=== PATIENT | male | born 1940 | race African-American/Black ===

== ENCOUNTER 2018-09-05 12:06 | Inpatient (IN) | payer OTHER, MEDICAID ==
[~2018-09-05] VITALS: Ht 165.1 cm; Wt 76.2 kg
[~2018-09-05 12:06] MED LIST: ACET325T53 GT; BIMA2.5D5 OP; DEPL250/5 GT; FURO-150 GT; NOR10 GT; NUTR250L50 GT; OLAN2.5T3 GT; OMEP40CA GT; SIMV20TA2 GT
[2018-09-05 12:17] VITALS: BP_SYST 132
[2018-09-05] MEDS ORDERED: NACL 0.9% 1,000 ML IV ONE (12:26)
[2018-09-05] MEDS ORDERED: MORPHINE 4 MG/ML INJ. SYRINGE IVP ONE (12:30)
[2018-09-05] MEDS ORDERED: ONDANSETRON HCL 4 MG/2 ML VIAL IVP ONE (12:30)
[2018-09-05 12:54] LABS: HEMATOCRIT 46.2 % (36-54); WHITE BLOOD COUNT (AUTO) 16.7 K/uL (4.8-10.8)
[2018-09-05 13:06] LABS: BASOPHILS # (AUTO) 0.3 K/uL (0.0-0.2); BASOPHILS % (AUTO) 1.9 % (0.0-2.0); HEMOGLOBIN 15.5 g/dL (14.0-18.0); LYMPHOCYTES # (AUTO) 0.9 K/uL (1.0-5.5); LYMPHOCYTES % (AUTO) 5.6 % (20.5-51.5); MEAN CORPUSCULAR HEMOGLOBIN 31 pg (27-31); MEAN CORPUSCULAR HGB CONC 34 % (32-36); MEAN CORPUSCULAR VOLUME 91 fL (79.0-98.0); MONOCYTES # (AUTO) 1.8 K/uL (0.0-1.0); MONOCYTES % (AUTO) 10.6 % (1.7-9.3); NEUTROPHILS # (AUTO) 13.7 K/uL (1.8-7.7); NEUTROPHILS % (AUTO) 81.9 % (40.0-70.0); PLATELET COUNT (AUTO) 160 K/uL (130-430); RED BLOOD CELL COUNT(AUTO) 5.07 MIL/uL (4.2-6.2); RED CELL DISTRIBUTION WIDTH 14.9 % (9.0-15.0)
[2018-09-05 13:11] LABS: ANION GAP 11 (5-15); CALCIUM 9.6 mg/dL (8.4-11.0); CHLORIDE 101 mmol/L (98-107); CREATININE 1.75 mg/dL (0.55-1.30); GLUCOSE 145 mg/dL (70-99); POTASSIUM 4.4 mmol/L (3.5-5.1); SODIUM SERUM 140 mmol/L (136-145); UREA NITROGEN, BLOOD 29 mg/dL (8-21)
[2018-09-05 13:17] LABS: ALANINE AMINOTRANSFERASE 28 U/L (12-78); ALBUMIN 3.4 g/dL (3.4-4.8); AMYLASE 52 U/L (0-100); ASPARTATE AMINOTRANSFERASE 30 U/L (10-37); LIPASE 90 U/L (73-393); TOTAL BILIRUBIN 1.2 mg/dL (0.0-1.0)
[2018-09-05 13:21] LABS: INR 1.1 (0.80-1.20)
[2018-09-05] MEDS ORDERED: metroNIDAZOLE 500 mg/NS 100 ML IV ONE (13:30)
[2018-09-05 13:42] LABS: CLARITY/URINE CLOUDY (CLEAR); COLOR,URINE YELLOW (YELLOW); GLUCOSE,URINE NEGATIVE (NEGATIVE); PROTEIN URINE 1+ (NEGATIVE)
[2018-09-05 13:43] LABS: BILIRUBIN,URINE NEGATIVE (NEGATIVE); BLOOD, URINE 1+ (NEGATIVE); KETONES,URINE NEGATIVE (NEGATIVE); LEUKOCYTE ESTERASE ,URINE 3+ (NEGATIVE); NITRITE, URINE NEGATIVE (NEGATIVE); UROBILINOGEN,URINE 0.2 (0.2-1.0)
[2018-09-05 13:44] LABS: BACTERIA,URINE MODERATE /HPF (None Seen); MUCUS,URINE 1+ /LPF (None Seen); WBC,URINE >100 /HPF (0-3)
[2018-09-05] MEDS ORDERED: LIP40 PO (15:08)
[2018-09-05] MEDS ORDERED: HYT1 GT (15:08)
[2018-09-05] MEDS ORDERED: LACT1CAP61 PO (15:08)
[2018-09-05] MEDS ORDERED: METO25TA6 PO (15:08)
[2018-09-05] MEDS ORDERED: SSREG SUBCUT (15:08)
[2018-09-05] MEDS ORDERED: INSU100V11 SQ (15:08)
[2018-09-05] MEDS ORDERED: LANS15CA14 GT (15:08)
[2018-09-05] MEDS ORDERED: IPRA3AMP9 INH (15:08)
[2018-09-05] MEDS ORDERED: ASA81 PO (15:08)
[2018-09-05] MEDS ORDERED: FAMO20TA8 GT (15:08)
[2018-09-05 15:42] VITALS: BP_SYST 131
[2018-09-05] MEDS: KCL 20 mEq in D5/0.45NS 1000mL 1,000 ML IV SCH (17:20)
[2018-09-05] MEDS ORDERED: ACETAMINOPHEN 325 MG TABLET GT PRN (18:45)
[2018-09-05 19:13] VITALS: BP_SYST 135
[2018-09-05] MEDS: LevALBUTEROL HCL 1.25 MG/0.5 ML *CONC.* VIAL.NEB (XOPENEX CONC.) INH SCH (19:36)
[2018-09-05 19:43] VITALS: BP_SYST 135
[2018-09-05] MEDS ORDERED: NA PHOS,M-B/NA PHOS,DI-BA 118 ML (FLEET ENEMA) RC ONE (20:00)
[2018-09-05] MEDS ORDERED: VANCOMYCIN HCL 1,500 MG in NS 250 ML IV ONE (21:00)
[2018-09-05] MEDS: PANTOPRAZOLE SODIUM 40 MG/VIAL (PROTONIX) IVP SCH (21:47)
[2018-09-05] MEDS: TERAZOSIN HCL 1 MG CAPSULE (HYTRIN) GT SCH (21:47)
[2018-09-05] MEDS: METOPROLOL TARTRATE 25 MG TABLET GT SCH (21:48)
[2018-09-05] MEDS: LACTULOSE 20 GM/30 ML UDC GT SCH (21:48)
[2018-09-05] MEDS: ENOXAPARIN SODIUM 30 MG/0.3 ML SYRINGE SUBCUT SCH (21:49)
[2018-09-05] MEDS ORDERED: VANCOMYCIN HCL 1000 MG/VIAL IV ONE (23:11)
[2018-09-05] MEDS ORDERED: CEFEPIME 1 GM/VIAL (MAXIPIME) ONE (23:11)
[2018-09-05] MEDS ORDERED: VANCOMYCIN HCL 500 MG/VIAL IV ONE (23:11)
[2018-09-06] MEDS: CEFEPIME 1 GM in D5W 50 ML IV SCH ×2 (00:08→20:02)
[2018-09-06 00:42] VITALS: BP_SYST 123
[2018-09-06] MEDS: LevALBUTEROL HCL 1.25 MG/0.5 ML *CONC.* VIAL.NEB (XOPENEX CONC.) INH SCH ×4 (01:51→19:37)
[2018-09-06] MEDS: KCL 20 mEq in D5/0.45NS 1000mL 1,000 ML IV SCH ×3 (04:07→21:15)
[2018-09-06] MEDS: ONDANSETRON HCL 4 MG/2 ML VIAL IVP PRN ×3 (04:10→20:09)
[2018-09-06 06:27] LABS: BASOPHILS % (AUTO) 0.2 % (0.0-2.0); HEMATOCRIT 43.8 % (36-54); HEMOGLOBIN 14.4 g/dL (14.0-18.0); LYMPHOCYTES # (AUTO) 1.1 K/uL (1.0-5.5); LYMPHOCYTES % (AUTO) 8.6 % (20.5-51.5); MEAN CORPUSCULAR HEMOGLOBIN 31 pg (27-31); MEAN CORPUSCULAR HGB CONC 33 % (32-36); MONOCYTES # (AUTO) 1.3 K/uL (0.0-1.0); MONOCYTES % (AUTO) 10.4 % (1.7-9.3); NEUTROPHILS # (AUTO) 10.5 K/uL (1.8-7.7); NEUTROPHILS % (AUTO) 80.8 % (40.0-70.0); PLATELET COUNT (AUTO) 158 K/uL (130-430); RED BLOOD CELL COUNT(AUTO) 4.73 MIL/uL (4.2-6.2); RED CELL DISTRIBUTION WIDTH 14.9 % (9.0-15.0); WHITE BLOOD COUNT (AUTO) 12.9 K/uL (4.8-10.8)
[2018-09-06] MEDS: INSULIN REGULAR, HUMAN 100 UNITS/ML, 10 ML VIAL (novoLIN R) SUBCUT PRN ×2 (07:12→11:40)
[2018-09-06 07:24] LABS: ANION GAP 11 (5-15); CALCIUM 8.8 mg/dL (8.4-11.0); CHLORIDE 104 mmol/L (98-107); CREATININE 1.55 mg/dL (0.55-1.30); GLUCOSE 174 mg/dL (70-99); POTASSIUM 3.9 mmol/L (3.5-5.1); SODIUM SERUM 140 mmol/L (136-145); UREA NITROGEN, BLOOD 25 mg/dL (8-21)
[2018-09-06 07:34] LABS: MEAN CORPUSCULAR VOLUME 93 fL (79.0-98.0)
[2018-09-06 08:00] VITALS: BP_SYST 136
[2018-09-06] MEDS: ASPIRIN 81 MG TAB.CHEW GT SCH (09:30)
[2018-09-06] MEDS: LACTULOSE 20 GM/30 ML UDC GT SCH ×2 (09:30→20:01)
[2018-09-06] MEDS: PANTOPRAZOLE SODIUM 40 MG/VIAL (PROTONIX) IVP SCH ×2 (09:30→20:01)
[2018-09-06] MEDS: ATORVASTATIN 20 MG TABLET GT SCH (09:30)
[2018-09-06] MEDS: amLODIPine BESYLATE 10 MG TABLET GT SCH (09:31)
[2018-09-06] MEDS: METOPROLOL TARTRATE 25 MG TABLET GT SCH ×2 (09:32→20:06)
[2018-09-06 11:18] VITALS: BP_SYST 123
[2018-09-06] MEDS: metroNIDAZOLE 500 mg/NS 100 ML IV SCH ×2 (14:30→21:47)
[2018-09-06 16:29] VITALS: BP_SYST 122
[2018-09-06 20:00] VITALS: BP_SYST 160
[2018-09-06] MEDS: ENOXAPARIN SODIUM 30 MG/0.3 ML SYRINGE SUBCUT SCH (20:02)
[2018-09-06] MEDS: TERAZOSIN HCL 1 MG CAPSULE (HYTRIN) GT SCH (20:06)
[2018-09-06] MEDS ORDERED: VANCOMYCIN HCL 1000 MG/VIAL IV ONE (20:10)
[2018-09-06] MEDS: LATANOPROST 2.5 ML DROPS (XALATAN) OP SCH ×2 (20:11→21:00)
[2018-09-06] MEDS ORDERED: VANCOMYCIN HCL 1 GM/NS PREMIX 250 ML IV SCH (21:00)
[2018-09-07] MEDS: LevALBUTEROL HCL 1.25 MG/0.5 ML *CONC.* VIAL.NEB (XOPENEX CONC.) INH SCH ×4 (01:09→19:45)
[2018-09-07 01:24] VITALS: BP_SYST 135
[2018-09-07] MEDS: metroNIDAZOLE 500 mg/NS 100 ML IV SCH ×3 (05:06→22:06)
[2018-09-07] MEDS: KCL 20 mEq in D5/0.45NS 1000mL 1,000 ML IV SCH ×3 (05:25→20:51)
[2018-09-07] MEDS: ONDANSETRON HCL 4 MG/2 ML VIAL IVP PRN ×2 (05:54→17:09)
[2018-09-07 06:54] LABS: ANION GAP 11 (5-15); CALCIUM 8.5 mg/dL (8.4-11.0); CHLORIDE 106 mmol/L (98-107); CREATININE 1.69 mg/dL (0.55-1.30); GLUCOSE 157 mg/dL (70-99); POTASSIUM 4.2 mmol/L (3.5-5.1); SODIUM SERUM 141 mmol/L (136-145); UREA NITROGEN, BLOOD 23 mg/dL (8-21)
[2018-09-07 07:03] LABS: ALANINE AMINOTRANSFERASE 28 U/L (12-78); ALBUMIN 2.6 g/dL (3.4-4.8); ASPARTATE AMINOTRANSFERASE 51 U/L (10-37); TOTAL BILIRUBIN 0.7 mg/dL (0.0-1.0)
[2018-09-07] MEDS: LACTULOSE 20 GM/30 ML UDC GT SCH ×2 (08:53→21:02)
[2018-09-07 10:10] VITALS: BP_SYST 104
[2018-09-07] MEDS: PANTOPRAZOLE SODIUM 40 MG/VIAL (PROTONIX) IVP SCH ×2 (10:18→20:57)
[2018-09-07] MEDS: amLODIPine BESYLATE 10 MG TABLET GT SCH (10:19)
[2018-09-07] MEDS: ATORVASTATIN 20 MG TABLET GT SCH (10:19)
[2018-09-07] MEDS: METOPROLOL TARTRATE 25 MG TABLET GT SCH ×2 (10:19→21:02)
[2018-09-07] MEDS: ASPIRIN 81 MG TAB.CHEW GT SCH (10:19)
[2018-09-07 12:31] VITALS: BP_SYST 125
[2018-09-07] MEDS ORDERED: MINERAL OIL 133 ML ENEMA RC ONE (16:15)
[2018-09-07 16:40] VITALS: BP_SYST 122
[2018-09-07 20:00] VITALS: BP_SYST 133
[2018-09-07] MEDS: CEFEPIME 1 GM in D5W 50 ML IV SCH (20:52)
[2018-09-07] MEDS: TERAZOSIN HCL 1 MG CAPSULE (HYTRIN) GT SCH (21:01)
[2018-09-07] MEDS: ENOXAPARIN SODIUM 30 MG/0.3 ML SYRINGE SUBCUT SCH (21:05)
[2018-09-07] MEDS: LATANOPROST 2.5 ML DROPS (XALATAN) OP SCH (21:06)
[2018-09-08] VITALS (7 sets, daily range): BP systolic 117–186
[2018-09-08] MEDS: LevALBUTEROL HCL 1.25 MG/0.5 ML *CONC.* VIAL.NEB (XOPENEX CONC.) INH SCH ×4 (00:55→19:44)
[2018-09-08] MEDS: metroNIDAZOLE 500 mg/NS 100 ML IV SCH ×3 (05:02→20:42)
[2018-09-08 08:07] LABS: PROTHROMBIN TIME 10.7 SECS (9.5-12.5)
[2018-09-08 08:33] LABS: BASOPHILS % (AUTO) 0.4 % (0.0-2.0); HEMOGLOBIN 14.4 g/dL (14.0-18.0); LYMPHOCYTES # (AUTO) 2.2 K/uL (1.0-5.5); LYMPHOCYTES % (AUTO) 19.9 % (20.5-51.5); MEAN CORPUSCULAR HEMOGLOBIN 30 pg (27-31); MEAN CORPUSCULAR HGB CONC 34 % (32-36); MEAN CORPUSCULAR VOLUME 90 fL (79.0-98.0); MONOCYTES # (AUTO) 1.4 K/uL (0.0-1.0); MONOCYTES % (AUTO) 12.1 % (1.7-9.3); NEUTROPHILS # (AUTO) 7.6 K/uL (1.8-7.7); NEUTROPHILS % (AUTO) 67.6 % (40.0-70.0); PLATELET COUNT (AUTO) 141 K/uL (130-430); RED BLOOD CELL COUNT(AUTO) 4.77 MIL/uL (4.2-6.2); RED CELL DISTRIBUTION WIDTH 14.9 % (9.0-15.0); WHITE BLOOD COUNT (AUTO) 11.2 K/uL (4.8-10.8)
[2018-09-08] MEDS: LACTULOSE 20 GM/30 ML UDC GT SCH ×2 (08:47→20:40)
[2018-09-08] MEDS: PANTOPRAZOLE SODIUM 40 MG/VIAL (PROTONIX) IVP SCH ×2 (08:47→20:40)
[2018-09-08] MEDS: ATORVASTATIN 20 MG TABLET GT SCH (08:48)
[2018-09-08] MEDS: METOPROLOL TARTRATE 25 MG TABLET GT SCH ×2 (08:48→20:41)
[2018-09-08] MEDS: amLODIPine BESYLATE 10 MG TABLET GT SCH (08:49)
[2018-09-08] MEDS: ASPIRIN 81 MG TAB.CHEW GT SCH (08:49)
[2018-09-08 09:29] LABS: CHLORIDE 110 mmol/L (98-107); POTASSIUM 4.2 mmol/L (3.5-5.1); SODIUM SERUM 142 mmol/L (136-145)
[2018-09-08 09:30] LABS: ANION GAP 10 (5-15); CALCIUM 8.6 mg/dL (8.4-11.0); GLUCOSE 169 mg/dL (70-99); UREA NITROGEN, BLOOD 36 mg/dL (8-21)
[2018-09-08] MEDS: KCL 20 mEq in D5/0.45NS 1000mL 1,000 ML IV SCH ×2 (09:42→23:10)
[2018-09-08] MEDS ORDERED: MINERAL OIL 133 ML ENEMA RC PRN (18:15)
[2018-09-08] MEDS ORDERED: GENTAMICIN 120 MG/ ISO-OSM 100 ML PREMIX IV SCH (19:00)
[2018-09-08] MEDS: TERAZOSIN HCL 1 MG CAPSULE (HYTRIN) GT SCH (20:41)
[2018-09-08] MEDS: CEFEPIME 1 GM in D5W 50 ML IV SCH (20:42)
[2018-09-08] MEDS: LATANOPROST 2.5 ML DROPS (XALATAN) OP SCH (20:42)
[2018-09-08] MEDS: ENOXAPARIN SODIUM 30 MG/0.3 ML SYRINGE SUBCUT SCH (20:44)
[2018-09-08] MEDS ORDERED: COMMUNICATION ORDER XX ONE (23:30)
[2018-09-08] MEDS: NA PHOS,M-B/NA PHOS,DI-BA 118 ML (FLEET ENEMA) RC ONE (23:36)
[2018-09-08] MEDS: METOCLOPRAMIDE HCL 10 MG/2 ML VIAL IVP SCH (23:39)
[2018-09-09] MEDS ORDERED: MINERAL OIL 30 ML UDC PO ONE
[2018-09-09] MEDS ORDERED: POLYETHYLENE GLYCOL 3350, 17 GM/ POWD.PACK PO ONE
[2018-09-09] MEDS: NA PHOS,M-B/NA PHOS,DI-BA 118 ML (FLEET ENEMA) RC ONE (01:36)
[2018-09-09] MEDS: LevALBUTEROL HCL 1.25 MG/0.5 ML *CONC.* VIAL.NEB (XOPENEX CONC.) INH SCH ×4 (01:43→20:56)
[2018-09-09] MEDS: metroNIDAZOLE 500 mg/NS 100 ML IV SCH ×2 (05:34→14:01)
[2018-09-09] MEDS: METOCLOPRAMIDE HCL 10 MG/2 ML VIAL IVP SCH ×3 (05:34→17:50)
[2018-09-09] MEDS: INSULIN REGULAR, HUMAN 100 UNITS/ML, 10 ML VIAL (novoLIN R) SUBCUT PRN (05:52)
[2018-09-09] MEDS: KCL 20 mEq in D5/0.45NS 1000mL 1,000 ML IV SCH (05:52)
[2018-09-09 07:30] LABS: ANION GAP 12 (5-15); CALCIUM 8.3 mg/dL (8.4-11.0); CHLORIDE 110 mmol/L (98-107); CREATININE 3.14 mg/dL (0.55-1.30); GLUCOSE 158 mg/dL (70-99); PHOSPHORUS 2.8 mg/dL (2.7-4.5); POTASSIUM 4.3 mmol/L (3.5-5.1); SODIUM SERUM 141 mmol/L (136-145); UREA NITROGEN, BLOOD 43 mg/dL (8-21)
[2018-09-09 08:01] LABS: BASOPHILS % (AUTO) 0.2 % (0.0-2.0); EOSINOPHILS # (AUTO) 0.1 K/uL (0.0-0.4); EOSINOPHILS % (AUTO) 0.6 % (0.0-4.0); HEMATOCRIT 40.1 % (36-54); HEMOGLOBIN 14.2 g/dL (14.0-18.0); LYMPHOCYTES # (AUTO) 2.4 K/uL (1.0-5.5); MEAN CORPUSCULAR HEMOGLOBIN 32 pg (27-31); MEAN CORPUSCULAR HGB CONC 35 % (32-36); MEAN CORPUSCULAR VOLUME 89 fL (79.0-98.0); MONOCYTES # (AUTO) 1.3 K/uL (0.0-1.0); MONOCYTES % (AUTO) 14.4 % (1.7-9.3); NEUTROPHILS # (AUTO) 5.4 K/uL (1.8-7.7); NEUTROPHILS % (AUTO) 58.8 % (40.0-70.0); RED BLOOD CELL COUNT(AUTO) 4.48 MIL/uL (4.2-6.2); RED CELL DISTRIBUTION WIDTH 15.2 % (9.0-15.0); WHITE BLOOD COUNT (AUTO) 9.2 K/uL (4.8-10.8)
[2018-09-09 09:18] VITALS: BP_SYST 132
[2018-09-09] MEDS: POLYETHYLENE GLYCOL 3350, 17 GM/ POWD.PACK PO SCH (09:20)
[2018-09-09] MEDS: PANTOPRAZOLE SODIUM 40 MG/VIAL (PROTONIX) IVP SCH ×2 (09:20→21:41)
[2018-09-09] MEDS: MINERAL OIL 30 ML UDC PO SCH ×2 (09:20→21:41)
[2018-09-09] MEDS: LACTULOSE 20 GM/30 ML UDC GT SCH ×2 (09:20→21:40)
[2018-09-09] MEDS: METOPROLOL TARTRATE 25 MG TABLET GT SCH ×2 (09:21→21:43)
[2018-09-09] MEDS: amLODIPine BESYLATE 10 MG TABLET GT SCH (09:22)
[2018-09-09] MEDS: ATORVASTATIN 20 MG TABLET GT SCH (09:22)
[2018-09-09] MEDS: ASPIRIN 81 MG TAB.CHEW GT SCH (09:22)
[2018-09-09 11:24] LABS: PLATELET COUNT (AUTO) 205 K/uL (130-430)
[2018-09-09 12:02] VITALS: BP_SYST 153
[2018-09-09] MEDS: D5/0.45 NS 1,000 ML IV SCH (14:00)
[2018-09-09 16:02] VITALS: BP_SYST 161
[2018-09-09] MEDS: CEFTAZIDIME/AVIBACTAM 0.94 GM in NS 100 ML IV SCH (17:50)
[2018-09-09] MEDS: ENOXAPARIN SODIUM 30 MG/0.3 ML SYRINGE SUBCUT SCH (21:40)
[2018-09-09] MEDS: LATANOPROST 2.5 ML DROPS (XALATAN) OP SCH (21:41)
[2018-09-09] MEDS: TERAZOSIN HCL 1 MG CAPSULE (HYTRIN) GT SCH (21:43)
[2018-09-09 23:21] VITALS: BP_SYST 151
[2018-09-10] MEDS: METOCLOPRAMIDE HCL 10 MG/2 ML VIAL IVP SCH ×5 (00:18→23:10)
[2018-09-10] MEDS: D5/0.45 NS 1,000 ML IV SCH ×4 (00:19→23:10)
[2018-09-10] MEDS: LevALBUTEROL HCL 1.25 MG/0.5 ML *CONC.* VIAL.NEB (XOPENEX CONC.) INH SCH ×4 (00:32→20:32)
[2018-09-10 07:03] LABS: BASOPHILS % (AUTO) 0.1 % (0.0-2.0); EOSINOPHILS # (AUTO) 0.1 K/uL (0.0-0.4); EOSINOPHILS % (AUTO) 0.6 % (0.0-4.0); HEMATOCRIT 35.8 % (36-54); HEMOGLOBIN 12.1 g/dL (14.0-18.0); LYMPHOCYTES # (AUTO) 2.6 K/uL (1.0-5.5); MEAN CORPUSCULAR HEMOGLOBIN 31 pg (27-31); MEAN CORPUSCULAR HGB CONC 34 % (32-36); MEAN CORPUSCULAR VOLUME 91 fL (79.0-98.0); MONOCYTES # (AUTO) 1.3 K/uL (0.0-1.0); NEUTROPHILS # (AUTO) 7.7 K/uL (1.8-7.7); NEUTROPHILS % (AUTO) 66.3 % (40.0-70.0); PLATELET COUNT (AUTO) 113 K/uL (130-430); RED BLOOD CELL COUNT(AUTO) 3.93 MIL/uL (4.2-6.2); WHITE BLOOD COUNT (AUTO) 11.7 K/uL (4.8-10.8)
[2018-09-10 07:20] LABS: ALANINE AMINOTRANSFERASE 15 U/L (12-78); ANION GAP 10 (5-15); ASPARTATE AMINOTRANSFERASE 24 U/L (10-37); CALCIUM 7.7 mg/dL (8.4-11.0); CHLORIDE 112 mmol/L (98-107); CREATININE 2.73 mg/dL (0.55-1.30); GLUCOSE 137 mg/dL (70-99); POTASSIUM 3.6 mmol/L (3.5-5.1); SODIUM SERUM 141 mmol/L (136-145); TOTAL BILIRUBIN 0.6 mg/dL (0.0-1.0); UREA NITROGEN, BLOOD 38 mg/dL (8-21)
[2018-09-10 07:59] VITALS: BP_SYST 118
[2018-09-10] MEDS: LACTULOSE 20 GM/30 ML UDC GT SCH ×2 (08:52→20:22)
[2018-09-10] MEDS: MINERAL OIL 30 ML UDC PO SCH ×2 (08:53→20:22)
[2018-09-10] MEDS: POLYETHYLENE GLYCOL 3350, 17 GM/ POWD.PACK PO SCH (08:53)
[2018-09-10] MEDS ORDERED: ATORVASTATIN 20 MG TABLET GT SCH (09:00)
[2018-09-10] MEDS: PANTOPRAZOLE SODIUM 40 MG/VIAL (PROTONIX) IVP SCH ×2 (09:16→20:23)
[2018-09-10] MEDS: amLODIPine BESYLATE 10 MG TABLET GT SCH (09:17)
[2018-09-10] MEDS: ASPIRIN 81 MG TAB.CHEW GT SCH (09:17)
[2018-09-10] MEDS: METOPROLOL TARTRATE 25 MG TABLET GT SCH ×2 (09:18→20:25)
[2018-09-10 12:02] VITALS: BP_SYST 108
[2018-09-10] MEDS: CEFTAZIDIME/AVIBACTAM 0.94 GM in NS 100 ML IV SCH (14:14)
[2018-09-10] MEDS ORDERED: *TPN PER PHARMACY XX PRN (14:45)
[2018-09-10 16:02] VITALS: BP_SYST 111
[2018-09-10] MEDS: TERAZOSIN HCL 1 MG CAPSULE (HYTRIN) GT SCH (20:24)
[2018-09-10] MEDS: LATANOPROST 2.5 ML DROPS (XALATAN) OP SCH (20:26)
[2018-09-10] MEDS: ENOXAPARIN SODIUM 30 MG/0.3 ML SYRINGE SUBCUT SCH (20:28)
[2018-09-10 22:56] VITALS: BP_SYST 104
[2018-09-11] MEDS: LevALBUTEROL HCL 1.25 MG/0.5 ML *CONC.* VIAL.NEB (XOPENEX CONC.) INH SCH ×4 (01:43→21:05)
[2018-09-11] MEDS: METOCLOPRAMIDE HCL 10 MG/2 ML VIAL IVP SCH ×3 (05:20→17:38)
[2018-09-11] MEDS: D5/0.45 NS 1,000 ML IV SCH ×3 (06:09→21:55)
[2018-09-11 07:39] LABS: BASOPHILS # (AUTO) 0.1 K/uL (0.0-0.2); BASOPHILS % (AUTO) 0.8 % (0.0-2.0); EOSINOPHILS # (AUTO) 0.3 K/uL (0.0-0.4); EOSINOPHILS % (AUTO) 3.1 % (0.0-4.0); HEMATOCRIT 38.1 % (36-54); HEMOGLOBIN 11.9 g/dL (14.0-18.0); LYMPHOCYTES % (AUTO) 18.8 % (20.5-51.5); MEAN CORPUSCULAR HEMOGLOBIN 29 pg (27-31); MEAN CORPUSCULAR HGB CONC 31 % (32-36); MONOCYTES # (AUTO) 1.1 K/uL (0.0-1.0); MONOCYTES % (AUTO) 10.2 % (1.7-9.3); NEUTROPHILS # (AUTO) 7.1 K/uL (1.8-7.7); NEUTROPHILS % (AUTO) 67.1 % (40.0-70.0); PLATELET COUNT (AUTO) 130 K/uL (130-430); RED BLOOD CELL COUNT(AUTO) 4.11 MIL/uL (4.2-6.2); WHITE BLOOD COUNT (AUTO) 10.6 K/uL (4.8-10.8)
[2018-09-11 07:45] LABS: MEAN CORPUSCULAR VOLUME 93 fL (79.0-98.0)
[2018-09-11 07:50] LABS: ANION GAP 10 (5-15); CALCIUM 7.9 mg/dL (8.4-11.0); CHLORIDE 109 mmol/L (98-107); GLUCOSE 139 mg/dL (70-99); PHOSPHORUS 2.9 mg/dL (2.7-4.5); POTASSIUM 3.6 mmol/L (3.5-5.1); SODIUM SERUM 140 mmol/L (136-145); TRIGLYCERIDES 117 mg/dL (30-150); UREA NITROGEN, BLOOD 25 mg/dL (8-21)
[2018-09-11 08:10] VITALS: BP_SYST 105
[2018-09-11 09:38] VITALS: BP_SYST 105
[2018-09-11] MEDS: PANTOPRAZOLE SODIUM 40 MG/VIAL (PROTONIX) IVP SCH ×2 (10:57→22:05)
[2018-09-11] MEDS: POLYETHYLENE GLYCOL 3350, 17 GM/ POWD.PACK PO SCH (10:57)
[2018-09-11] MEDS: MINERAL OIL 30 ML UDC PO SCH ×2 (10:57→22:05)
[2018-09-11] MEDS: LACTULOSE 20 GM/30 ML UDC GT SCH ×2 (10:57→22:05)
[2018-09-11] MEDS: METOPROLOL TARTRATE 25 MG TABLET GT SCH ×2 (10:59→22:08)
[2018-09-11] MEDS: ASPIRIN 81 MG TAB.CHEW GT SCH (10:59)
[2018-09-11] MEDS: amLODIPine BESYLATE 10 MG TABLET GT SCH (10:59)
[2018-09-11 12:32] VITALS: BP_SYST 123
[2018-09-11] MEDS: LevALBUTEROL HCL 1.25 MG/0.5 ML *CONC.* VIAL.NEB (XOPENEX CONC.) INH PRN (14:49)
[2018-09-11 16:20] VITALS: BP_SYST 127
[2018-09-11] MEDS: CEFTAZIDIME/AVIBACTAM 0.94 GM in NS 100 ML IV SCH (16:53)
[2018-09-11] MEDS ORDERED: FAT EMULSIONS 250 ML IV SCH (18:00)
[2018-09-11] MEDS ORDERED: TPN CENTRAL 0.0001 ML, SODIUM ACETATE 40 MEQ, POTASSIUM ACETATE 20 MEQ, K PHOS 9 MM, CA... IV SCH ×10 (18:00)
[2018-09-11 21:30] VITALS: BP_SYST 132
[2018-09-11] MEDS: TERAZOSIN HCL 1 MG CAPSULE (HYTRIN) GT SCH (22:07)
[2018-09-11] MEDS: LATANOPROST 2.5 ML DROPS (XALATAN) OP SCH (22:07)
[2018-09-11] MEDS: ENOXAPARIN SODIUM 30 MG/0.3 ML SYRINGE SUBCUT SCH (22:10)
[2018-09-12] MEDS: INSULIN REGULAR, HUMAN 100 UNITS/ML, 10 ML VIAL (novoLIN R) SUBCUT PRN ×2 (00:09→06:35)
[2018-09-12 01:08] VITALS: BP_SYST 118
[2018-09-12] MEDS: D5/0.45 NS 1,000 ML IV SCH ×3 (01:15→10:08)
[2018-09-12] MEDS: LevALBUTEROL HCL 1.25 MG/0.5 ML *CONC.* VIAL.NEB (XOPENEX CONC.) INH SCH ×3 (01:34→19:45)
[2018-09-12] MEDS: ONDANSETRON HCL 4 MG/2 ML VIAL IVP PRN ×3 (05:45→21:45)
[2018-09-12 08:07] VITALS: BP_SYST 146
[2018-09-12 08:54] LABS: ANION GAP 12 (5-15); CALCIUM 8.2 mg/dL (8.4-11.0); CHLORIDE 108 mmol/L (98-107); CREATININE 1.68 mg/dL (0.55-1.30); GLUCOSE 145 mg/dL (70-99); POTASSIUM 3.4 mmol/L (3.5-5.1); SODIUM SERUM 141 mmol/L (136-145); UREA NITROGEN, BLOOD 14 mg/dL (8-21)
[2018-09-12 08:59] LABS: ALANINE AMINOTRANSFERASE 16 U/L (12-78); ALBUMIN 2.3 g/dL (3.4-4.8); ASPARTATE AMINOTRANSFERASE 27 U/L (10-37); PHOSPHORUS 3.5 mg/dL (2.7-4.5); TOTAL BILIRUBIN 0.6 mg/dL (0.0-1.0)
[2018-09-12] MEDS: METOCLOPRAMIDE HCL 10 MG/2 ML VIAL IVP PRN ×2 (09:44→17:38)
[2018-09-12] MEDS: ASPIRIN 81 MG TAB.CHEW GT SCH (09:45)
[2018-09-12] MEDS: LACTULOSE 20 GM/30 ML UDC GT SCH ×2 (09:45→21:26)
[2018-09-12] MEDS: MINERAL OIL 30 ML UDC PO SCH ×2 (09:45→21:26)
[2018-09-12] MEDS: PANTOPRAZOLE SODIUM 40 MG/VIAL (PROTONIX) IVP SCH ×2 (09:45→21:25)
[2018-09-12] MEDS: POLYETHYLENE GLYCOL 3350, 17 GM/ POWD.PACK PO SCH (09:46)
[2018-09-12] MEDS: METOPROLOL TARTRATE 25 MG TABLET GT SCH ×2 (09:46→21:32)
[2018-09-12] MEDS: amLODIPine BESYLATE 10 MG TABLET GT SCH (09:46)
[2018-09-12 13:00] VITALS: BP_SYST 114
[2018-09-12] MEDS: CEFTAZIDIME/AVIBACTAM 0.94 GM in NS 100 ML IV SCH (14:40)
[2018-09-12 16:41] VITALS: BP_SYST 124
[2018-09-12] MEDS ORDERED: TPN CENTRAL 0.0001 ML, SODIUM ACETATE 40 MEQ, POTASSIUM ACETATE 30 MEQ, K PHOS 9 MM, CA... IV SCH ×10 (18:00)
[2018-09-12 20:00] VITALS: BP_SYST 129
[2018-09-12] MEDS: TERAZOSIN HCL 1 MG CAPSULE (HYTRIN) GT SCH (21:32)
[2018-09-12] MEDS: ENOXAPARIN SODIUM 30 MG/0.3 ML SYRINGE SUBCUT SCH (21:33)
[2018-09-12] MEDS: LATANOPROST 2.5 ML DROPS (XALATAN) OP SCH (21:34)
[2018-09-13 01:15] VITALS: BP_SYST 118
[2018-09-13] MEDS: LevALBUTEROL HCL 1.25 MG/0.5 ML *CONC.* VIAL.NEB (XOPENEX CONC.) INH SCH ×4 (01:25→18:42)
[2018-09-13] MEDS: LevALBUTEROL HCL 1.25 MG/0.5 ML *CONC.* VIAL.NEB (XOPENEX CONC.) INH PRN (03:58)
[2018-09-13] MEDS ORDERED: FUROSEMIDE 40 MG/4 ML VIAL IVP ONE (04:00)
[2018-09-13] MEDS ORDERED: methylPREDNISolone SOD SUCC/PF 62.5 MG/ML VIAL IVP ONE (04:50)
[2018-09-13 05:05] LABS: ANION GAP 11 (5-15); CALCIUM 8.2 mg/dL (8.4-11.0); CHLORIDE 106 mmol/L (98-107); CREATININE 1.73 mg/dL (0.55-1.30); GLUCOSE 133 mg/dL (70-99); POTASSIUM 3.6 mmol/L (3.5-5.1); SODIUM SERUM 142 mmol/L (136-145); UREA NITROGEN, BLOOD 12 mg/dL (8-21)
[2018-09-13 05:12] LABS: HEMATOCRIT 42.2 % (36-54); MEAN CORPUSCULAR HEMOGLOBIN 31 pg (27-31); MEAN CORPUSCULAR HGB CONC 33 % (32-36); MEAN CORPUSCULAR VOLUME 92 fL (79.0-98.0); PLATELET COUNT (AUTO) 167 K/uL (130-430); RED BLOOD CELL COUNT(AUTO) 4.59 MIL/uL (4.2-6.2); RED CELL DISTRIBUTION WIDTH 14.6 % (9.0-15.0); WHITE BLOOD COUNT (AUTO) 14.5 K/uL (4.8-10.8)
[2018-09-13 05:28] LABS: ATYPICAL LYMPHOCYTES % 1 % (0-0); BAND % (MANUAL) 6 % (0-6); EOSINOPHILS % (MANUAL) 1 % (0-7); LYMPHOCYTES % (MANUAL) 4 % (20-46); MONOCYTES % (MANUAL) 7 % (0-11)
[2018-09-13 05:29] LABS: BASOPHILS % (MANUAL) 0 % (0-2); METAMYELOCYTES % 0 % (0-0); MYELOCYTES % 1 % (0-0)
[2018-09-13 06:59] VITALS: BP_SYST 125
[2018-09-13 08:00] VITALS: BP_SYST 104
[2018-09-13] MEDS: amLODIPine BESYLATE 10 MG TABLET GT SCH (09:00)
[2018-09-13] MEDS ORDERED: DIATR MEGLU/DIATRIZ SOD 30 ML SOLUTION PO ONE (09:13)
[2018-09-13] MEDS: ASPIRIN 81 MG TAB.CHEW GT SCH (09:17)
[2018-09-13] MEDS: MINERAL OIL 30 ML UDC PO SCH ×2 (09:17→21:43)
[2018-09-13] MEDS: LACTULOSE 20 GM/30 ML UDC GT SCH ×2 (09:17→21:43)
[2018-09-13] MEDS: PANTOPRAZOLE SODIUM 40 MG/VIAL (PROTONIX) IVP SCH ×2 (09:18→21:46)
[2018-09-13 09:34] LABS: ANION GAP 11 (5-15); CALCIUM 8.4 mg/dL (8.4-11.0); CHLORIDE 105 mmol/L (98-107); GLUCOSE 190 mg/dL (70-99); PHOSPHORUS 1.7 mg/dL (2.7-4.5); POTASSIUM 3.8 mmol/L (3.5-5.1); SODIUM SERUM 138 mmol/L (136-145); UREA NITROGEN, BLOOD 14 mg/dL (8-21)
[2018-09-13 12:02] VITALS: BP_SYST 105
[2018-09-13] MEDS: INSULIN REGULAR, HUMAN 100 UNITS/ML, 10 ML VIAL (novoLIN R) SUBCUT PRN ×2 (12:19→17:46)
[2018-09-13] MEDS: CEFTAZIDIME/AVIBACTAM 0.94 GM in NS 100 ML IV SCH (15:26)
[2018-09-13 16:02] VITALS: BP_SYST 126
[2018-09-13] MEDS ORDERED: TPN CENTRAL IV SCH ×10 (18:00)
[2018-09-13] MEDS ORDERED: K PHOS IV SCH ×10 (18:00)
[2018-09-13] MEDS ORDERED: SODIUM ACETATE IV SCH ×10 (18:00)
[2018-09-13] MEDS ORDERED: [UNRECOGNIZED DRUG - OTHER] IV SCH ×10 (18:00)
[2018-09-13] MEDS ORDERED: POTASSIUM ACETATE IV SCH ×10 (18:00)
[2018-09-13 20:00] VITALS: BP_SYST 137
[2018-09-13] MEDS: ONDANSETRON HCL 4 MG/2 ML VIAL IVP PRN (21:44)
[2018-09-13] MEDS: TERAZOSIN HCL 1 MG CAPSULE (HYTRIN) GT SCH (21:44)
[2018-09-13] MEDS: ENOXAPARIN SODIUM 30 MG/0.3 ML SYRINGE SUBCUT SCH (21:45)
[2018-09-13] MEDS: LATANOPROST 2.5 ML DROPS (XALATAN) OP SCH (21:46)
[2018-09-14] VITALS (9 sets, daily range): BP systolic 105–158
[2018-09-14] MEDS: LevALBUTEROL HCL 1.25 MG/0.5 ML *CONC.* VIAL.NEB (XOPENEX CONC.) INH SCH ×4 (01:05→19:31)
[2018-09-14] MEDS: INSULIN REGULAR, HUMAN 100 UNITS/ML, 10 ML VIAL (novoLIN R) SUBCUT PRN (05:13)
[2018-09-14 07:57] LABS: ANION GAP 10 (5-15); CALCIUM 8.2 mg/dL (8.4-11.0); CHLORIDE 106 mmol/L (98-107); GLUCOSE 144 mg/dL (70-99); POTASSIUM 3.8 mmol/L (3.5-5.1); SODIUM SERUM 140 mmol/L (136-145); UREA NITROGEN, BLOOD 22 mg/dL (8-21)
[2018-09-14 08:07] LABS: PHOSPHORUS 3.2 mg/dL (2.7-4.5)
[2018-09-14] MEDS: MINERAL OIL 30 ML UDC PO SCH ×2 (09:43→21:00)
[2018-09-14] MEDS: LACTULOSE 20 GM/30 ML UDC GT SCH ×2 (09:43→20:59)
[2018-09-14] MEDS: ASPIRIN 81 MG TAB.CHEW GT SCH (09:43)
[2018-09-14] MEDS: PANTOPRAZOLE SODIUM 40 MG/VIAL (PROTONIX) IVP SCH ×2 (09:43→21:02)
[2018-09-14] MEDS: amLODIPine BESYLATE 10 MG TABLET GT SCH (09:44)
[2018-09-14] MEDS ORDERED: MINERAL OIL 133 ML ENEMA RC ONE (12:45)
[2018-09-14] MEDS: CEFTAZIDIME/AVIBACTAM 0.94 GM in NS 100 ML IV SCH (15:17)
[2018-09-14] MEDS: FAT EMULSIONS 250 ML IV SCH (15:24)
[2018-09-14] MEDS ORDERED: K PHOS IV SCH ×11 (18:00)
[2018-09-14] MEDS ORDERED: POTASSIUM ACETATE IV SCH ×11 (18:00)
[2018-09-14] MEDS ORDERED: TPN CENTRAL IV SCH ×11 (18:00)
[2018-09-14] MEDS ORDERED: [UNRECOGNIZED DRUG - OTHER] IV SCH ×11 (18:00)
[2018-09-14] MEDS ORDERED: SODIUM ACETATE IV SCH ×11 (18:00)
[2018-09-14] MEDS: ENOXAPARIN SODIUM 30 MG/0.3 ML SYRINGE SUBCUT SCH (20:59)
[2018-09-14] MEDS: LATANOPROST 2.5 ML DROPS (XALATAN) OP SCH (21:01)
[2018-09-14] MEDS: TERAZOSIN HCL 1 MG CAPSULE (HYTRIN) GT SCH (21:09)
[2018-09-15] VITALS (7 sets, daily range): BP systolic 115–141
[2018-09-15] MEDS: LevALBUTEROL HCL 1.25 MG/0.5 ML *CONC.* VIAL.NEB (XOPENEX CONC.) INH SCH ×4 (01:09→20:10)
[2018-09-15 07:10] LABS: ALANINE AMINOTRANSFERASE 49 U/L (12-78); ANION GAP 9 (5-15); ASPARTATE AMINOTRANSFERASE 65 U/L (10-37); CALCIUM 8.2 mg/dL (8.4-11.0); CHLORIDE 106 mmol/L (98-107); CREATININE 1.41 mg/dL (0.55-1.30); GLUCOSE 160 mg/dL (70-99); SODIUM SERUM 140 mmol/L (136-145); TOTAL BILIRUBIN 0.5 mg/dL (0.0-1.0); TRIGLYCERIDES 198 mg/dL (30-150); UREA NITROGEN, BLOOD 23 mg/dL (8-21)
[2018-09-15] MEDS: MINERAL OIL 30 ML UDC PO SCH ×2 (09:15→20:25)
[2018-09-15] MEDS: PANTOPRAZOLE SODIUM 40 MG/VIAL (PROTONIX) IVP SCH ×2 (09:15→20:23)
[2018-09-15] MEDS: LACTULOSE 20 GM/30 ML UDC GT SCH ×2 (09:15→20:21)
[2018-09-15] MEDS: ASPIRIN 81 MG TAB.CHEW GT SCH (09:16)
[2018-09-15] MEDS: amLODIPine BESYLATE 10 MG TABLET GT SCH (09:16)
[2018-09-15] MEDS: CEFTAZIDIME/AVIBACTAM 0.94 GM in NS 100 ML IV SCH (15:00)
[2018-09-15] MEDS: FAT EMULSIONS 250 ML IV SCH (15:01)
[2018-09-15] MEDS ORDERED: TPN CENTRAL 0.0001 ML, SODIUM ACETATE 40 MEQ, POTASSIUM ACETATE 30 MEQ, K PHOS 9 MM, CA... IV SCH ×11 (18:00)
[2018-09-15] MEDS: TERAZOSIN HCL 1 MG CAPSULE (HYTRIN) GT SCH (20:22)
[2018-09-15] MEDS: LATANOPROST 2.5 ML DROPS (XALATAN) OP SCH (20:24)
[2018-09-15] MEDS: ENOXAPARIN SODIUM 30 MG/0.3 ML SYRINGE SUBCUT SCH (20:28)
[2018-09-16] MEDS: INSULIN REGULAR, HUMAN 100 UNITS/ML, 10 ML VIAL (novoLIN R) SUBCUT PRN ×2 (00:47→05:48)
[2018-09-16] MEDS: LevALBUTEROL HCL 1.25 MG/0.5 ML *CONC.* VIAL.NEB (XOPENEX CONC.) INH SCH ×2 (01:25→07:59)
[2018-09-16 05:02] VITALS: BP_SYST 115
[2018-09-16 07:28] LABS: ANION GAP 8 (5-15); CALCIUM 7.9 mg/dL (8.4-11.0); CHLORIDE 104 mmol/L (98-107); CREATININE 1.39 mg/dL (0.55-1.30); GLUCOSE 145 mg/dL (70-99); POTASSIUM 3.4 mmol/L (3.5-5.1); SODIUM SERUM 142 mmol/L (136-145); UREA NITROGEN, BLOOD 19 mg/dL (8-21)
[2018-09-16 07:39] LABS: ALANINE AMINOTRANSFERASE 43 U/L (12-78); ASPARTATE AMINOTRANSFERASE 37 U/L (10-37); PHOSPHORUS 4.2 mg/dL (2.7-4.5); TOTAL BILIRUBIN 0.3 mg/dL (0.0-1.0)
[2018-09-16 08:00] VITALS: BP_SYST 136
[2018-09-16] MEDS: MINERAL OIL 30 ML UDC PO SCH (08:41)
[2018-09-16] MEDS: LACTULOSE 20 GM/30 ML UDC GT SCH (08:41)
[2018-09-16] MEDS: ASPIRIN 81 MG TAB.CHEW GT SCH (08:42)
[2018-09-16] MEDS: PANTOPRAZOLE SODIUM 40 MG/VIAL (PROTONIX) IVP SCH (08:42)
[2018-09-16] MEDS: amLODIPine BESYLATE 10 MG TABLET GT SCH (08:43)
[2018-09-16 11:30] VITALS: BP_SYST 135
[2018-09-16] MEDS ORDERED: POTASSIUM ACETATE IV SCH ×12 (18:00)
[2018-09-16] MEDS ORDERED: [UNRECOGNIZED DRUG - OTHER] IV SCH ×12 (18:00)
[2018-09-16] MEDS ORDERED: SODIUM ACETATE IV SCH ×12 (18:00)
[2018-09-16] MEDS ORDERED: TPN CENTRAL IV SCH ×12 (18:00)
== END 2018-09-16 11:20 | DRG 871 ==
LOC: SED 12:06 → STU 15:25 → SMU 09-12 20:02 → STU 09-13 04:08
PROVIDERS: ADMIT Family Medicine; ATTEND Family Medicine
PROC: 02HV33Z Insertion of Infusion Device into Superior Vena Cava, Percutaneous Approach (ICD-10-PCS; principal; 2018-09-08)
PROC: B548ZZA Ultrasonography of Superior Vena Cava, Guidance (ICD-10-PCS; 2018-09-08)
PROC: 0D9670Z Drainage of Stomach with Drainage Device, Via Natural or Artificial Opening (ICD-10-PCS; 2018-09-08)
PROC: 3E0336Z Introduction of Nutritional Substance into Peripheral Vein, Percutaneous Approach (ICD-10-PCS; 2018-09-12)
DX: A41.9 Sepsis, unspecified organism (principal); J69.0 Pneumonitis due to inhalation of food and vomit; J15.9 Unspecified bacterial pneumonia; G82.50 Quadriplegia, unspecified; N39.0 Urinary tract infection, site not specified; N17.9 Acute kidney failure, unspecified; R47.01 Aphasia; G93.40 Encephalopathy, unspecified; K56.600 Partial intestinal obstruction, unspecified as to cause; E11.21 Type 2 diabetes mellitus with diabetic nephropathy; E11.22 Type 2 diabetes mellitus with diabetic chronic kidney disease; E11.40 Type 2 diabetes mellitus with diabetic neuropathy, unspecified; E86.0 Dehydration; E78.5 Hyperlipidemia, unspecified; B96.5 Pseudomonas (aeruginosa) (mallei) (pseudomallei) as the cause of diseases classified elsewhere; N18.9 Chronic kidney disease, unspecified; I12.9 Hypertensive chronic kidney disease with stage 1 through stage 4 chronic kidney disease, or unspecified chronic kidney disease; R13.10 Dysphagia, unspecified; Y95 Nosocomial condition; Z93.1 Gastrostomy status; K56.41 Fecal impaction; J44.9 Chronic obstructive pulmonary disease, unspecified; Z79.899 Other long term (current) drug therapy; F03.90 Unspecified dementia, unspecified severity, without behavioral disturbance, psychotic disturbance, mood disturbance, and anxiety; Z85.9 Personal history of malignant neoplasm, unspecified; I69.365 Other paralytic syndrome following cerebral infarction, bilateral
CPT/HCPCS: 36415; 71045; 74018; 80048; 80053; 81000-TC; 82150-TC; 82550-TC; 82962; 83605; 83690-TC; 83735-TC; 84100-TC; 84478-TC; 84484; 85007; 85025; 85027; 85610-TC; 85730-TC; 87040-TC; 87081; 87086; 87186-TC; 93005; 94640; 94760; 96365; 96375; 99285; C1751; C1769; C9113; G0378; J0610; J0692; J0713; J1580; J1650; J1815; J1940; J1956; J2270; J2405; J2765; J2930; J3370; J3475; J3490; J7050; J7060; J7612; Q9964

== ENCOUNTER 2018-10-16 09:44 | Inpatient (IN) | payer OTHER, MEDICAID ==
[~2018-10-16] VITALS: Ht 165.1 cm; Wt 78.0 kg
[~2018-10-16 09:44] MED LIST changes: +ASA81 PO; -DEPL250/5 GT; +FAMO20TA8 GT; -FURO-150 GT; +HYT1 GT; +INSU100V11 SQ; +IPRA3AMP9 INH; +LACT1CAP61 PO; +LANS15CA14 GT; +LIP40 PO; +METO25TA6 PO; -NUTR250L50 GT; -OLAN2.5T3 GT; -OMEP40CA GT; -SIMV20TA2 GT; +SSREG SUBCUT
[2018-10-16 09:50] VITALS: BP_SYST 142
[2018-10-16] MEDS ORDERED: NACL 0.9% 1,000 ML IV ONE (10:00)
[2018-10-16] MEDS ORDERED: GASTROGRAFIN 120 ML ONE (10:11)
[2018-10-16 11:20] LABS: ANION GAP 4 (5-15); CALCIUM 9.1 mg/dL (8.4-11.0); CHLORIDE 101 mmol/L (98-107); CREATININE 1.15 mg/dL (0.55-1.30); GLUCOSE 108 mg/dL (70-99); POTASSIUM 4.5 mmol/L (3.5-5.1); SODIUM SERUM 134 mmol/L (136-145); UREA NITROGEN, BLOOD 17 mg/dL (8-21)
[2018-10-16 11:20] LABS: BILIRUBIN,URINE NEGATIVE (NEGATIVE); BLOOD, URINE 2+ (NEGATIVE); CLARITY/URINE CLEAR (CLEAR); COLOR,URINE YELLOW (YELLOW); GLUCOSE,URINE NEGATIVE (NEGATIVE); KETONES,URINE NEGATIVE (NEGATIVE); LEUKOCYTE ESTERASE ,URINE NEGATIVE (NEGATIVE); NITRITE, URINE NEGATIVE (NEGATIVE); PROTEIN URINE 2+ (NEGATIVE); UROBILINOGEN,URINE 0.2 (0.2-1.0)
[2018-10-16 11:25] LABS: ALANINE AMINOTRANSFERASE 22 U/L (12-78); ASPARTATE AMINOTRANSFERASE 24 U/L (10-37); TOTAL BILIRUBIN 0.3 mg/dL (0.0-1.0)
[2018-10-16 11:29] LABS: BASOPHILS # (AUTO) 0.1 K/uL (0.0-0.2); BASOPHILS % (AUTO) 1.2 % (0.0-2.0); EOSINOPHILS # (AUTO) 0.4 K/uL (0.0-0.4); EOSINOPHILS % (AUTO) 3.6 % (0.0-4.0); HEMATOCRIT 40.8 % (36-54); HEMOGLOBIN 13.5 g/dL (14.0-18.0); LYMPHOCYTES # (AUTO) 3.3 K/uL (1.0-5.5); LYMPHOCYTES % (AUTO) 30.9 % (20.5-51.5); MEAN CORPUSCULAR HEMOGLOBIN 31 pg (27-31); MEAN CORPUSCULAR HGB CONC 33 % (32-36); MEAN CORPUSCULAR VOLUME 92 fL (79.0-98.0); MONOCYTES # (AUTO) 1.2 K/uL (0.0-1.0); MONOCYTES % (AUTO) 10.9 % (1.7-9.3); NEUTROPHILS # (AUTO) 5.7 K/uL (1.8-7.7); NEUTROPHILS % (AUTO) 53.4 % (40.0-70.0); PLATELET COUNT (AUTO) 253 K/uL (130-430); RED BLOOD CELL COUNT(AUTO) 4.42 MIL/uL (4.2-6.2); RED CELL DISTRIBUTION WIDTH 15.5 % (9.0-15.0); WHITE BLOOD COUNT (AUTO) 10.7 K/uL (4.8-10.8)
[2018-10-16 11:41] LABS: BACTERIA,URINE FEW /HPF (None Seen); WBC,URINE 0-3 /HPF (0-3)
[2018-10-16 11:42] LABS: MUCUS,URINE None Seen /LPF (None Seen)
[2018-10-16] MEDS ORDERED: XALEYE OP (12:00)
[2018-10-16] MEDS ORDERED: SSNOVOLOG SUBCUT (12:00)
[2018-10-16] MEDS ORDERED: ONDA8TAB6 PO (12:00)
[2018-10-16] MEDS ORDERED: METO-290 GT (12:00)
[2018-10-16] MEDS ORDERED: LOVI30 SQ (12:00)
[2018-10-16] MEDS ORDERED: PRO40 PO (12:00)
[2018-10-16 12:55] VITALS: BP_SYST 128
[2018-10-16] MEDS: KCL 20 mEq in D5/0.45NS 1000mL 1,000 ML IV SCH (13:19)
[2018-10-16] MEDS ORDERED: DEXTROSE 50%-WATER 50 ML DISP.SYRIN IVP PRN (15:15)
[2018-10-16] MEDS ORDERED: GLUCOSE 15 GM GEL (in 37.5 GM TUBE) PO PRN (15:15)
[2018-10-16] MEDS ORDERED: LevALBUTEROL HCL 1.25 MG/0.5 ML *CONC.* VIAL.NEB (XOPENEX CONC.) INH PRN (15:15)
[2018-10-16] MEDS ORDERED: INSULIN REGULAR, HUMAN 100 UNITS/ML, 10 ML VIAL (humuLIN R) SUBCUT PRN (15:15)
[2018-10-16] MEDS ORDERED: ACETAMINOPHEN 325 MG TABLET GT PRN (15:15)
[2018-10-16] MEDS ORDERED: D5W 1,000 ML IV PRN (15:15)
[2018-10-16] MEDS ORDERED: ONDANSETRON HCL 4 MG/2 ML VIAL IVP PRN (15:15)
[2018-10-16 15:53] VITALS: BP_SYST 128
[2018-10-16 16:50] VITALS: BP_SYST 150
[2018-10-16] MEDS: METOCLOPRAMIDE HCL 10 MG/2 ML VIAL IVP SCH (18:22)
[2018-10-16] MEDS: LevALBUTEROL HCL 1.25 MG/0.5 ML *CONC.* VIAL.NEB (XOPENEX CONC.) INH SCH (19:35)
[2018-10-16 20:00] VITALS: BP_SYST 143
[2018-10-16] MEDS: TERAZOSIN HCL 1 MG CAPSULE (HYTRIN) GT SCH (21:00)
[2018-10-16] MEDS: ENOXAPARIN SODIUM 30 MG/0.3 ML SYRINGE SQ SCH (21:04)
[2018-10-16] MEDS: PANTOPRAZOLE SODIUM 40 MG/VIAL (PROTONIX) IVP SCH (21:04)
[2018-10-16] MEDS: LATANOPROST 2.5 ML DROPS (XALATAN) OP SCH (21:04)
[2018-10-17 00:12] VITALS: BP_SYST 133
[2018-10-17] MEDS: METOCLOPRAMIDE HCL 10 MG/2 ML VIAL IVP SCH ×4 (00:32→17:20)
[2018-10-17] MEDS: LevALBUTEROL HCL 1.25 MG/0.5 ML *CONC.* VIAL.NEB (XOPENEX CONC.) INH SCH ×4 (01:16→20:28)
[2018-10-17] MEDS: KCL 20 mEq in D5/0.45NS 1000mL 1,000 ML IV SCH ×2 (02:52→17:20)
[2018-10-17 08:12] VITALS: BP_SYST 145
[2018-10-17] MEDS ORDERED: GASTROGRAFIN 120 ML ONE (08:26)
[2018-10-17] MEDS: PANTOPRAZOLE SODIUM 40 MG/VIAL (PROTONIX) IVP SCH ×2 (09:13→21:03)
[2018-10-17] MEDS: ASPIRIN 81 MG TAB.CHEW GT SCH (10:45)
[2018-10-17] MEDS: amLODIPine BESYLATE 10 MG TABLET GT SCH (10:45)
[2018-10-17 11:34] VITALS: BP_SYST 125
[2018-10-17 16:16] VITALS: BP_SYST 124
[2018-10-17 19:48] VITALS: BP_SYST 158
[2018-10-17] MEDS: TERAZOSIN HCL 1 MG CAPSULE (HYTRIN) GT SCH (21:03)
[2018-10-17] MEDS: LATANOPROST 2.5 ML DROPS (XALATAN) OP SCH (21:04)
[2018-10-17] MEDS: ENOXAPARIN SODIUM 30 MG/0.3 ML SYRINGE SQ SCH (21:06)
[2018-10-18 00:08] VITALS: BP_SYST 139
[2018-10-18] MEDS: METOCLOPRAMIDE HCL 10 MG/2 ML VIAL IVP SCH ×5 (00:18→23:32)
[2018-10-18] MEDS: LevALBUTEROL HCL 1.25 MG/0.5 ML *CONC.* VIAL.NEB (XOPENEX CONC.) INH SCH ×4 (01:21→20:28)
[2018-10-18] MEDS: KCL 20 mEq in D5/0.45NS 1000mL 1,000 ML IV SCH ×2 (05:26→18:04)
[2018-10-18 08:00] VITALS: BP_SYST 136
[2018-10-18] MEDS: amLODIPine BESYLATE 10 MG TABLET GT SCH (09:38)
[2018-10-18] MEDS: ASPIRIN 81 MG TAB.CHEW GT SCH (09:40)
[2018-10-18] MEDS: PANTOPRAZOLE SODIUM 40 MG/VIAL (PROTONIX) IVP SCH ×2 (09:40→21:50)
[2018-10-18 12:50] VITALS: BP_SYST 136
[2018-10-18 16:46] VITALS: BP_SYST 127
[2018-10-18] MEDS: LATANOPROST 2.5 ML DROPS (XALATAN) OP SCH (21:50)
[2018-10-18] MEDS: ENOXAPARIN SODIUM 30 MG/0.3 ML SYRINGE SQ SCH (21:51)
[2018-10-18] MEDS: TERAZOSIN HCL 1 MG CAPSULE (HYTRIN) GT SCH (21:52)
[2018-10-19 00:25] VITALS: BP_SYST 140
[2018-10-19] MEDS: LevALBUTEROL HCL 1.25 MG/0.5 ML *CONC.* VIAL.NEB (XOPENEX CONC.) INH SCH ×3 (01:02→13:55)
[2018-10-19] MEDS: METOCLOPRAMIDE HCL 10 MG/2 ML VIAL IVP SCH ×3 (05:35→17:11)
[2018-10-19 06:19] LABS: BASOPHILS # (AUTO) 0.1 K/uL (0.0-0.2); BASOPHILS % (AUTO) 1.2 % (0.0-2.0); EOSINOPHILS # (AUTO) 0.2 K/uL (0.0-0.4); EOSINOPHILS % (AUTO) 3.4 % (0.0-4.0); HEMATOCRIT 33.5 % (36-54); HEMOGLOBIN 11.1 g/dL (14.0-18.0); LYMPHOCYTES # (AUTO) 2.5 K/uL (1.0-5.5); LYMPHOCYTES % (AUTO) 36.4 % (20.5-51.5); MEAN CORPUSCULAR HEMOGLOBIN 31 pg (27-31); MEAN CORPUSCULAR HGB CONC 33 % (32-36); MEAN CORPUSCULAR VOLUME 92 fL (79.0-98.0); MONOCYTES # (AUTO) 0.9 K/uL (0.0-1.0); MONOCYTES % (AUTO) 13.3 % (1.7-9.3); NEUTROPHILS # (AUTO) 3.3 K/uL (1.8-7.7); NEUTROPHILS % (AUTO) 45.7 % (40.0-70.0); PLATELET COUNT (AUTO) 201 K/uL (130-430); RED BLOOD CELL COUNT(AUTO) 3.63 MIL/uL (4.2-6.2); RED CELL DISTRIBUTION WIDTH 16.2 % (9.0-15.0)
[2018-10-19 06:28] LABS: ANION GAP 9 (5-15); CALCIUM 8.2 mg/dL (8.4-11.0); CHLORIDE 107 mmol/L (98-107); GLUCOSE 121 mg/dL (70-99); POTASSIUM 3.8 mmol/L (3.5-5.1); SODIUM SERUM 140 mmol/L (136-145); UREA NITROGEN, BLOOD 10 mg/dL (8-21)
[2018-10-19] MEDS: KCL 20 mEq in D5/0.45NS 1000mL 1,000 ML IV SCH (08:35)
[2018-10-19] MEDS: PANTOPRAZOLE SODIUM 40 MG/VIAL (PROTONIX) IVP SCH (08:35)
[2018-10-19 08:38] VITALS: BP_SYST 122
[2018-10-19] MEDS: amLODIPine BESYLATE 10 MG TABLET GT SCH (08:38)
[2018-10-19] MEDS: ASPIRIN 81 MG TAB.CHEW GT SCH (08:38)
[2018-10-19 11:30] VITALS: BP_SYST 137
[2018-10-19 11:35] VITALS: BP_SYST 137
[2018-10-19 16:01] VITALS: BP_SYST 130
[2018-10-19 16:28] VITALS: BP_SYST 130
== END 2018-10-19 18:05 | DRG 394 ==
LOC: SED 09:44 → SMU 11:56
PROVIDERS: ADMIT Family Medicine; ATTEND Family Medicine
PROC: 0D20XUZ Change Feeding Device in Upper Intestinal Tract, External Approach (ICD-10-PCS; principal; 2018-10-16)
DX: K94.23 Gastrostomy malfunction (principal); G93.40 Encephalopathy, unspecified; R73.03 Prediabetes; I10 Essential (primary) hypertension; J44.9 Chronic obstructive pulmonary disease, unspecified; Z86.73 Personal history of transient ischemic attack (TIA), and cerebral infarction without residual deficits
CPT/HCPCS: 36415; 71045; 74018; 74240-TC; 80048; 80053; 81000-TC; 82962; 83605; 85025; 87040-TC; 87081; 93005; 94640; 94760; 99285; C9113; J1650; J1815; J2765; J7612; Q9963

== ENCOUNTER 2019-07-30 11:36 | Emergency (ER) | payer OTHER, MEDICAID ==
[~2019-07-30] VITALS: Ht 170.2 cm; Wt 78.9 kg
[~2019-07-30 11:36] MED LIST changes: -BIMA2.5D5 OP; -FAMO20TA8 GT; -INSU100V11 SQ; -LACT1CAP61 PO; -LANS15CA14 GT; -LIP40 PO; +LOVI30 SQ; +METO-290 GT; -METO25TA6 PO; +ONDA8TAB6 PO; +PRO40 PO; +SSNOVOLOG SUBCUT; -SSREG SUBCUT; +XALEYE OP
[2019-07-30 11:40] VITALS: BP_SYST 161
[2019-07-30] MEDS ORDERED: IPRATROPIUM/ALBUTEROL SULFATE 3 ML AMPUL.NEB (DUONEB) INH ONE (12:30)
[2019-07-30] MEDS ORDERED: GASTROGRAFIN 120 ML ONE (13:06)
[2019-07-30 14:09] VITALS: BP_SYST 148
== END 2019-07-30 14:09 | disposition home or self-care (01) ==
LOC: SED 11:36
DX: K94.29 Other complications of gastrostomy (principal); I10 Essential (primary) hypertension; R06.2 Wheezing; Z79.82 Long term (current) use of aspirin; Z79.899 Other long term (current) drug therapy
CPT/HCPCS: 43762; 74240; 94640; 99284; J7620; Q9963

== ENCOUNTER 2019-07-31 17:34 | Emergency (ER) | payer OTHER, MEDICAID ==
[~2019-07-31] VITALS: Ht 177.8 cm; Wt 68.0 kg
[2019-07-31 18:05] VITALS: BP_SYST 134
[2019-07-31] MEDS ORDERED: GASTROGRAFIN 120 ML ONE (18:25)
--- NOTE | 2019-07-31 19:00 | NUR ---
Patient to ER bed Hallway to gown for evaluation. Side rails up.
--- NOTE | 2019-07-31 19:20 | NUR ---
Dr. Dumont bedside for Pt eval
--- NOTE | 2019-07-31 19:25 | NUR ---
Pt BIBA to ED seeking G-tube replacement. Per EMS patient G-tube came out last night. Patient is nonverbal at baseline but appears to be no acute distress. Remainder of history of present illness and physical exam are limited secondary to clinical condition. Pt reportedly pulled out his G-tube today and was placed back in by the facility. He was sent here to check if the G-tube is in place. No other complaints and or injuries noted VSS no s/s of acute distress. Resting on gurney rails up
[2019-07-31 19:30] VITALS: BP_SYST 134
--- NOTE | 2019-07-31 19:30 | NUR ---
Patient given written and verbal discharge instructions and verbalizes understanding. ER MD discussed with patient the results and treatment provided. Patient in stable condition. ID arm band removed. Patient educated on pain management and to follow up with PMD. Pain Scale 0/10 Opportunity for questions provided and answered.
== END 2019-07-31 19:30 | disposition home or self-care (01) ==
LOC: SED 17:34
DX: K94.29 Other complications of gastrostomy (principal); I10 Essential (primary) hypertension; Z79.82 Long term (current) use of aspirin; Z79.899 Other long term (current) drug therapy
CPT/HCPCS: 74240; 99283; Q9963

== ENCOUNTER 2020-07-21 18:53 | Inpatient (IN) | payer OTHER, MEDICAID, SELFPAY ==
[~2020-07-21] VITALS: Ht 165.1 cm; Wt 75.7 kg
[2020-07-21 19:08] VITALS: BP_SYST 132
--- NOTE | 2020-07-21 19:10 | NUR ---
Pt BIB BLS from [facility] r/t Bleeding at G-tube site. Pt Alert to self, responsive, non-verbal. Triple Lumen to RIJ, patent and secure. Contracture to RUE. Bright red blood oozing from G-tube site, controlled with pressure dsg. Area surrounding G-tube firm to touch. Old surgical site to left abdomen beneath umbilicus with scant amount of yellow drainage. F/C secure draining turbid eduardo urine. Dsg to LLE intact. VSS, NAD at this time.
--- NOTE | 2020-07-21 19:10 | NUR ---
Patient to ER bed 6 to gown for evaluation. Side rails up.
--- NOTE | 2020-07-21 19:20 | NUR ---
Dr. Ac at bedside.
--- NOTE | 2020-07-21 19:30 | NUR ---
# 16 FR Noguera catheter with use of sterile technique. Immediate return of 10 cc turbid eduardo urine noted. Bedside drainage bag placed below level of bladder. Urine sample collected and sent to lab. Pt tolerated procedure fair. Patient arrived with noguera in place, changed due to standard of practice prior to admission. Previous F/C with 200 mL turbid and sedimented urine to tubing and bag. Patient unable to toilet self.
[2020-07-21 20:13] LABS: BASOPHILS # (AUTO) 0.1 K/uL (0.0-0.2); BASOPHILS % (AUTO) 0.6 % (0.0-2.0); EOSINOPHILS # (AUTO) 0.6 K/uL (0.0-0.4); EOSINOPHILS % (AUTO) 4.6 % (0.0-4.0); HEMATOCRIT 30.4 % (36-54); HEMOGLOBIN 9.9 g/dL (14.0-18.0); LYMPHOCYTES # (AUTO) 4.3 K/uL (1.0-5.5); LYMPHOCYTES % (AUTO) 31.5 % (20.5-51.5); MEAN CORPUSCULAR HEMOGLOBIN 30 pg (27-31); MEAN CORPUSCULAR HGB CONC 33 % (32-36); MEAN CORPUSCULAR VOLUME 93 fL (79.0-98.0); MONOCYTES # (AUTO) 1.3 K/uL (0.0-1.0); MONOCYTES % (AUTO) 9.6 % (1.7-9.3); NEUTROPHILS # (AUTO) 7.4 K/uL (1.8-7.7); NEUTROPHILS % (AUTO) 53.7 % (40.0-70.0); PLATELET COUNT (AUTO) 385 K/uL (130-430); RED BLOOD CELL COUNT(AUTO) 3.28 MIL/uL (4.2-6.2); RED CELL DISTRIBUTION WIDTH 16.7 % (9.0-15.0); WHITE BLOOD COUNT (AUTO) 13.8 K/uL (4.8-10.8)
[2020-07-21 20:28] LABS: ANION GAP 8 (5-15); CALCIUM 8.8 mg/dL (8.4-11.0); CHLORIDE 103 mmol/L (98-107); GLUCOSE 116 mg/dL (70-99); POTASSIUM 4.1 mmol/L (3.5-5.1); SODIUM SERUM 138 mmol/L (136-145); UREA NITROGEN, BLOOD 24 mg/dL (8-21)
[2020-07-21 20:34] LABS: ALANINE AMINOTRANSFERASE 10 U/L (12-78); ALBUMIN 2.5 g/dL (3.4-4.8); ASPARTATE AMINOTRANSFERASE 22 U/L (10-37); TOTAL BILIRUBIN 0.4 mg/dL (0.0-1.0)
[2020-07-21] MEDS ORDERED: ONDANSETRON HCL 4 MG/2 ML VIAL IVP PRN (21:00)
[2020-07-21] MEDS ORDERED: ACETAMINOPHEN 650 MG SUPP.RECT RC PRN (21:00)
--- NOTE | 2020-07-21 21:04 | NUR ---
Patient transported to radiology via GURNEY, accompanied by RAD AND WILL.
--- NOTE | 2020-07-21 21:11 | NUR ---
Patient is unable to participate in end of life decisions making at this time. We are unable to contact family or power of employment attorney for healthcare and there are no code status forms on the chart. At this time the patient will be treated as full code on the basis of implied consent.
--- NOTE | 2020-07-21 21:15 | NUR ---
Dr. Zimmerman at bedside. Admit orders received.
[2020-07-21] MEDS ORDERED: ASCO500T20 GT (21:16)
[2020-07-21] MEDS ORDERED: LIP10 GT (21:17)
[2020-07-21] MEDS ORDERED: METO-442 GT (21:22)
[2020-07-21] MEDS ORDERED: LOVI40 SQ (21:22)
[2020-07-21] MEDS ORDERED: BISA10SU61 RC (21:22)
[2020-07-21] MEDS ORDERED: PIPE3.379 IV (21:22)
[2020-07-21] MEDS ORDERED: OMEP40CA13 GT (21:22)
[2020-07-21] MEDS ORDERED: RIVA10TA GT (21:22)
[2020-07-21] MEDS ORDERED: XALEYE OP (21:22)
[2020-07-21] MEDS ORDERED: ZINC220T4 GT (21:22)
--- NOTE | 2020-07-21 21:22 | NUR ---
Medication reconciliation completed with information provided by FACILITY [facility]. Any prior medication reconciliation on file was reviewed and corrected.
[2020-07-21] MEDS ORDERED: LevALBUTEROL HCL 1.25 MG/0.5 ML *CONC.* VIAL.NEB (XOPENEX CONC.) INH PRN (21:30)
[2020-07-21] MEDS ORDERED: hydrALAZINE HCL 20 MG/ML VIAL IVP PRN (21:30)
[2020-07-21] MEDS ORDERED: INSULIN REGULAR, HUMAN 100 UNITS/ML, 10 ML VIAL (humuLIN R) SUBCUT PRN (21:30)
--- NOTE | 2020-07-21 21:30 | NUR ---
Pt returns from CT. Tolerated well.
--- NOTE | 2020-07-21 21:40 | NUR ---
~ 1 cm circular wound noted to sacrum, no active drainage noted. Cleaned with NS, then covered with non-adherent dressing.
--- NOTE | 2020-07-21 21:40 | NUR ---
Pt had medium sized soft brown BM. Pt cleaned, new linen and new gown applied.
--- NOTE | 2020-07-21 21:43 | NUR ---
Patient will be admitted to care [facility]. Admitted to Med/Surg unit. Will go to room 101-B. Belongings list completed. Complete and up to date summary report printed. SBAR report to be given at bedside with opportunity for questions.
--- NOTE | 2020-07-21 21:46 | NUR ---
Called Tele Unit, Spoke with Olivia to inform that pt has a hx of Klebsiella of the urine.
[2020-07-21] MEDS ORDERED: KCL 20 mEq in D5/0.45NS 1000mL 1,000 ML IV ONE (21:48)
[2020-07-21] MEDS ORDERED: AMPICILLIN SODIUM/SULBACTAM NA 3 GM VIAL ONE ×2 (21:49→21:50)
[2020-07-21 21:52] LABS: BILIRUBIN,URINE NEGATIVE (NEGATIVE); BLOOD, URINE 3+ (NEGATIVE); COLOR,URINE YELLOW (YELLOW); GLUCOSE,URINE NEGATIVE (NEGATIVE); KETONES,URINE NEGATIVE (NEGATIVE); NITRITE, URINE NEGATIVE (NEGATIVE); PROTEIN URINE 3+ (NEGATIVE); UROBILINOGEN,URINE 0.2 (0.2-1.0)
[2020-07-21 22:00] LABS: CLARITY/URINE HAZY (CLEAR); LEUKOCYTE ESTERASE ,URINE 3+ (NEGATIVE)
[2020-07-21 22:02] LABS: BACTERIA,URINE MODERATE /HPF (None Seen); MUCUS,URINE None Seen /LPF (None Seen); RBC,URINE 80-100 /HPF (0-3); WBC,URINE >100 /HPF (0-3)
--- NOTE | 2020-07-21 22:15 | NUR ---
Pt transferred via stretcher and personnel monitor to Tele Rm 101-B, accompanied by panel monitorFERNANDO BELTRAN. Pt report given to receiving RN.
--- NOTE | 2020-07-21 22:19 | NUR ---
ADMIT NOTE Received pt from ER to the floor with a diagnosis of ABDOMINAL CELLULITIS WITH POSSIBLE ABSCESS. Admission process initiated. patient oriented to pain management, safety and call light-teach back done, pt is non verbal.
[2020-07-21 22:25] VITALS: BP_SYST 132
--- NOTE | 2020-07-21 22:30 | NUR ---
OPENING NOTE PATIENT AWAKE, AOX0, NON VERBAL. NO SIGNS OF RESPIRATORY DISTRESS AND DISCOMFORT NOTED .BREATHING EVEN AND UNLABORED, ON ROOM AIR, TOLERATING WELL. RIGHT IJ, WITH 3 LUMEN NOTED, DRESSING CLEAN AND DRY. 1 LUMEN (BROWN) NOT FLUSHING, 2 LUMENS FLUSHING WELL, BLOOD RETURN NOTED. IVF INFUSING WELL. DESAI CATHETER DRAINING BY GRAVITY. CALL LIGHT WITHIN REACH, BED LOCKED AND IN LOWEST POSITION. SAFETY AND SEIZURE PRECAUTIONS IN PLACE. WILL CONTINUE TO MONITOR PATIENT.
[2020-07-21] MEDS: PANTOPRAZOLE SODIUM 40 MG/VIAL (PROTONIX) IVP SCH (22:38)
[2020-07-21] MEDS: KCL 20 mEq in D5/0.45NS 1000mL 1,000 ML IV SCH (22:38)
[2020-07-21] MEDS: AMPICILLIN SODIUM/SULBACTAM NA 3 GM in NS 100 ML IV SCH (22:39)
[2020-07-21] MEDS: LATANOPROST 2.5 ML DROPS (XALATAN) OP SCH (22:49)
[2020-07-21 22:57] VITALS: BP_SYST 142
--- NOTE | 2020-07-21 23:09 | NUR ---
BS =104 BS [id number]=273 AND DUE MEDICATIONS GIVEN AT THIS TIME WELL. NO COVERAGE NEEDED. PATIENT HAS NO SIGNS OF RESPIRATORY DISTRESS AND DISCOMFORT NOTED. BREATHING EVEN AND UNLABORED. ON ROOM AIR, TOLERATING WELL. IVF INFUSING WELL. CALL LIGHT WITHIN REACH. SAFETY PRECAUTIONS IN PLACE. WILL CONTINUE TO MONITOR PATIENT
[2020-07-22] VITALS (18 sets, daily range): BP systolic 117–166
--- NOTE | 2020-07-22 01:06 | NUR ---
CONSULT REASON FOR CONSULT: CELLULITIS AND ABDOMINAL ABSCESS PERSON I SPOKE WITH: AVI CONSULTING PHYSICIAN: DR. SHERIDAN DESIZING MACHINE OPERATOR PHONE NUMBER: [phone] ORDERING PHYSICIAN: DR. MADRIGAL
[2020-07-22] MEDS: LevALBUTEROL HCL 1.25 MG/0.5 ML *CONC.* VIAL.NEB (XOPENEX CONC.) INH SCH ×4 (01:40→20:15)
--- NOTE | 2020-07-22 02:20 | NUR ---
RN ROUNDS PATIENT ASLEEP AT THIS TIME. NO SIGNS OF RESPIRATORY DISTRESS NOTED. BREATHING EVEN AND UNLABORED. ON ROOM AIR, TOLERATING WELL. IVF INFUSING WELL. SCD'S OPERATING WELL. SAFETY AND SEIZURE PRECAUTIONS IN PLACE. WILL CONTINUE TO MONITOR PATIENT
--- NOTE | 2020-07-22 03:45 | NUR ---
CENTRAL LINE DRESSING RIGHT IJ DRESSING DONE AT THIS TIME. PATIENT TOLERATED WELL. NO SIGNS OF RESPIRATORY DISTRESS AND DISCOMFORT NOTED. BREATHING EVEN AND UNLABORED. PATIENT ABLE TO FOLLOW ON SIMPLE COMMANDS. SAFETY PRECAUTIONS IN PLACE. WILL CONTINUE TO MONITOR PATIENT
[2020-07-22] MEDS ORDERED: KCL 20 mEq in D5/0.45NS 1000mL 1,000 ML IV ONE (04:36)
--- NOTE | 2020-07-22 04:51 | NUR ---
CONSULT REASON FOR CONSULT: ABDOMINAL CELLULITIS AND ABSCESS DR. EVANS CAME AND SAW THE PATIENT IN THE ROOM.
[2020-07-22] MEDS: AMPICILLIN SODIUM/SULBACTAM NA 3 GM in NS 100 ML IV SCH ×3 (05:24→17:37)
[2020-07-22] MEDS: KCL 20 mEq in D5/0.45NS 1000mL 1,000 ML IV SCH ×3 (05:25→21:19)
--- NOTE | 2020-07-22 06:37 | NUR ---
CLOSING NOTE PATIENT AWAKE, RESTING IN BED. NO SIGNS OF RESPIRATORY DISTRESS AND DISCOMFORT NTOED. BREATHING EVEN AND UNLABORED. ON ROOM AIR, TOLERATING WELL. IVF INFUSING WELL AT THE RIGHT IJ, DRESSING CLEAN AND DRY, PATENCY NOTED. DESAI CATHETER DRAINING WELL BY GRAVITY. BED LOCKED AND IN LOWEST POSITION. BED ALARM ON. SCD'S OPERATING WELL. ALL NEEDS MET THROUGHOUT THE SHIFT. WILL CONTINUE TO MONITOR PATIENT UNTIL ENDORSE TO ONCOMING SHIFT NURSE FOR CONTINUITY OF CARE.
--- NOTE | 2020-07-22 07:45 | NUR ---
Patient vomited blood upon initial assessment after bedside SBAR report, patient was found in to be in bed, a/ox1, nonverbal, can follow simple commands, NPO, right IJ intact infusing well, no bleeding around G tube site or around penis/Harris Catheter. Upon second encounter patient was found to have vomited copious amounts of bright red blood with large clots, patient was still not in any distress, patient was assessed, wheezing noted, vital signs taken, right IJ still intact and infusing well, attempted to do oral suction, patient refusing - turning his head and away and using his left arm to block his mouth, cleaned the patient - Charge Nurse RED Cason spoke with Dr. Zimmerman for further orders - transfer patient to ICU, GI consult, NGT, Zofran, CBC/BMP. Monitoring patient until transfer to ICU.
--- NOTE | 2020-07-22 07:56 | NUR ---
PAGED PAGED LINWOOD MCGOWAN AT [phone] SPOKE [facility].
[2020-07-22] MEDS ORDERED: GLUCOSE (DEXTROSE) ORAL GEL -Adults PO PRN (08:00)
[2020-07-22] MEDS ORDERED: DEXTROSE 50%-WATER 50 ML DISP.SYRIN IVP PRN (08:00)
[2020-07-22] MEDS ORDERED: D5W 1,000 ML IV PRN (08:00)
[2020-07-22] MEDS ORDERED: ONDANSETRON HCL 4 MG/2 ML VIAL IVP PRN (08:00)
--- NOTE | 2020-07-22 08:10 | NUR ---
CONSULTATION PAGED REASON FOR CONSULTATION:VOMITJNG BLOOD WAS CONSULT CALLED?Y PERSON WHO WAS NOTIFIED:ORAL CONSULTING PHYSICIAN:CONSTANTINO SHERIFF GOLF COURSE RANGER SPECIALTY:GI GOLF COURSE RANGER PHONE NUMBER:[phone] ORDERING PHYSICIAN:LINWOOD MCGOWAN
--- NOTE | 2020-07-22 08:50 | NUR ---
Patient transferred to ICU SBAR report to Juancarlos MOON.
[2020-07-22] MEDS: PANTOPRAZOLE SODIUM 40 MG/VIAL (PROTONIX) IVP SCH ×2 (08:59→20:16)
--- NOTE | 2020-07-22 09:00 | NUR ---
Care assumed. ST on monitor. On room air, O2 sat at 98%. IJ is noted on the right neck. Call light in place, bed locked at the lowest position, will continue to monitor.
[2020-07-22 09:18] LABS: BASOPHILS # (AUTO) 0.3 K/uL (0.0-0.2); BASOPHILS % (AUTO) 2.1 % (0.0-2.0); EOSINOPHILS # (AUTO) 0.3 K/uL (0.0-0.4); EOSINOPHILS % (AUTO) 2.3 % (0.0-4.0); HEMATOCRIT 25.1 % (36-54); HEMOGLOBIN 8.2 g/dL (14.0-18.0); LYMPHOCYTES # (AUTO) 4.1 K/uL (1.0-5.5); LYMPHOCYTES % (AUTO) 28.1 % (20.5-51.5); MEAN CORPUSCULAR HEMOGLOBIN 31 pg (27-31); MEAN CORPUSCULAR HGB CONC 33 % (32-36); MEAN CORPUSCULAR VOLUME 94 fL (79.0-98.0); MONOCYTES # (AUTO) 1.7 K/uL (0.0-1.0); MONOCYTES % (AUTO) 11.5 % (1.7-9.3); NEUTROPHILS # (AUTO) 8.3 K/uL (1.8-7.7); PLATELET COUNT (AUTO) 352 K/uL (130-430); RED BLOOD CELL COUNT(AUTO) 2.67 MIL/uL (4.2-6.2); RED CELL DISTRIBUTION WIDTH 16.7 % (9.0-15.0); WHITE BLOOD COUNT (AUTO) 14.8 K/uL (4.8-10.8)
[2020-07-22 09:19] LABS: ANION GAP 10 (5-15); CALCIUM 8.7 mg/dL (8.4-11.0); CHLORIDE 106 mmol/L (98-107); CREATININE 1.45 mg/dL (0.55-1.30); GLUCOSE 131 mg/dL (70-99); POTASSIUM 4.5 mmol/L (3.5-5.1); SODIUM SERUM 140 mmol/L (136-145); UREA NITROGEN, BLOOD 32 mg/dL (8-21)
[2020-07-22] MEDS ORDERED: OCTREOTIDE ACETATE 1,250 MCG in NS 243.75 ML IV SCH (09:45)
--- NOTE | 2020-07-22 09:57 | NUR ---
Nutrition Update Michael Scale 13 noted. Pt admitted for abd cellulitis w/ possible abscess. Diet: NPO BMI: 27.8 kg/m2 RD to follow per nutrition care standards.
[2020-07-22] MEDS ORDERED: METOCLOPRAMIDE HCL 10 MG/2 ML VIAL IVP ONE (10:15)
[2020-07-22] MEDS ORDERED: ONDANSETRON HCL 4 MG/2 ML VIAL IVP ONE (10:15)
--- NOTE | 2020-07-22 10:30 | NUR ---
Consents for EGD and blood products are obtained from Roscoe Jonas, the nephew of the patient.
[2020-07-22] MEDS: PANTOPRAZOLE SODIUM 40 MG in NS 50 ML IV SCH ×3 (11:02→20:05)
--- NOTE | 2020-07-22 12:00 | NUR ---
Blood sugar 112. No coverage needed at this time.
[2020-07-22 12:21] LABS: PHOSPHORUS 3.6 mg/dL (2.7-4.5)
--- NOTE | 2020-07-22 13:20 | NUR ---
Patient is seen by Dr. Benjamin.
[2020-07-22 13:27] LABS: HEMATOCRIT 23.4 % (36-54); HEMOGLOBIN 7.6 g/dL (14.0-18.0)
[2020-07-22 14:17] LABS: INR 1.1 (0.80-1.20); PROTHROMBIN TIME 11.6 SECS (9.5-12.5)
--- NOTE | 2020-07-22 15:04 | NUR ---
Dietitian Recommendations * Recommend PPN D20%, AA8.5% at 100 ml/hr (goal rate), IL20% at 10 ml/hr via peripheral line Provides: 1704 kcal/day, 102 gm protein/day, 2640 ml total volume/day, and GIR: 2.2 gm CHO/kg/min Meets: 81% of upper end of estimated caloric needs and 89% of upper end of estimated protein needs LP, RD Please refer to Nutrition Assessment for details. Addendum: 07/22/20 at [address] Amended: Links added.
[2020-07-22] MEDS ORDERED: fentaNYL CITRATE/PF 100 MCG/2 ML AMP ONE (15:10)
[2020-07-22] MEDS ORDERED: SIMETHICONE 40 MG/0.6 ML ML ONE (15:10)
[2020-07-22] MEDS: MIDAZOLAM HCL 5 MG/5 ML VIAL ONE ×2 (15:30→15:32)
--- NOTE | 2020-07-22 15:40 | NUR ---
Blood bank informs that there is a discrepancy of patient's name (missing Jr. on the label). RN relates the patient's date of , D and N number, but Blood bank informs RN that every patient's ID, including patient's suffix, must be exact match. HELP desk is informed about the patient's name discrepancy in his suffix. RN spoke to Delmar, who instructs RN to inform Coil Winder with Ticket number.
--- NOTE | 2020-07-22 15:50 | NUR ---
Bedside RN called HELP desk to get name discrepancy fixed to load into forms on demand so that lab will issue blood that patient has ordered. Waiting for HELP desk to complete.
--- NOTE | 2020-07-22 15:55 | NUR ---
EGD at bedside is done by Dr. Benjamin.
[2020-07-22] MEDS ORDERED: MAGNESIUM CITRATE 300 ML ORAL SOLUTION GT ONE (16:00)
[2020-07-22] MEDS ORDERED: BISACODYL 5 MG TABLET.DR (DULCOLAX) GT ONE (16:00)
--- NOTE | 2020-07-22 16:00 | NUR ---
Dr. Benjamin gave more orders after EGD. Will be carried out.
--- NOTE | 2020-07-22 16:40 | NUR ---
HELP DESK/ NAME CORRECTION Called the HELP desk and spoke with Delmar. He indicated that Martha picked up the ticket a little while ago and offered to give her a call. I requested a little more time for her to work on the ticket.
--- NOTE | 2020-07-22 17:14 | NUR ---
Blood Bank Spoke with Ana in blood bank. She is unable to release blood without the name correction, not even with a facesheet that shows the correct spelling with Jr after patients name. A patient label must be presented and this can only be changed via the HELP desk.
[2020-07-22 17:26] LABS: HEMATOCRIT 26.7 % (36-54)
[2020-07-22 17:31] LABS: HEMOGLOBIN 8.5 g/dL (14.0-18.0)
[2020-07-22] MEDS: LATANOPROST 2.5 ML DROPS (XALATAN) OP SCH (17:40)
--- NOTE | 2020-07-22 17:52 | NUR ---
Hemoglobin 8.5. Dr. Zimmerman is informed, and Hold transfusion at this time.
--- NOTE | 2020-07-22 18:30 | NUR ---
Patient had a minor episode of n/v. Zofran 4mg is given IVP.
[2020-07-22] MEDS: FLUCONAZOLE 100 mg/ NS 50 ML IV SCH (19:00)
--- NOTE | 2020-07-22 19:15 | NUR ---
Colonoscopy consent is obtained from Roscoe Jonas, patient's nephew. Addendum: 07/23/20 at 0050 by Ena Aggarwal RN MD to contact family for informed consent
--- NOTE | 2020-07-22 19:22 | NUR ---
Opening note: Rc'vd report from AM nurse, patient in bed with optimal HOB placement, bed in lowest locked position with call light in reach. No acute distress and or discomfort noted. Pending PICC line placement at this time.
--- NOTE | 2020-07-22 19:24 | NUR ---
Consent: Telephone consent rc'vd from tejas Brower for Colonoscopy to be done on 07.23.2020, time pending. Witnessed by second RN and consents signed.
--- NOTE | 2020-07-22 20:26 | NUR ---
PICC Line: PICC line nurse at bedside inserting Line, patient in no acute distress and or discomfort.
[2020-07-22] MEDS ORDERED: FLUCONAZOLE 200 mg/ NS 100 ML IV ONE (20:59)
[2020-07-22] MEDS ORDERED: POTASSIUM CHLORIDE IV SCH ×9 (21:00)
[2020-07-22] MEDS ORDERED: [UNRECOGNIZED DRUG - OTHER] IV SCH ×9 (21:00)
[2020-07-22] MEDS ORDERED: TPN PERIPHERAL IV SCH ×9 (21:00)
[2020-07-22] MEDS ORDERED: SODIUM ACETATE IV SCH ×9 (21:00)
[2020-07-22] MEDS ORDERED: CEFEPIME 0.5 GM in D5W 50 ML IV ONE (21:00)
[2020-07-22] MEDS ORDERED: *TPN PER PHARMACY XX PRN (21:00)
[2020-07-22] MEDS ORDERED: CEFEPIME 1 GM/VIAL (MAXIPIME) ONE (21:05)
--- NOTE | 2020-07-22 21:12 | NUR ---
X-Ray: PICC line placement confirmed by X-ray, double lumen PICC line placed.
[2020-07-22] MEDS: FAT EMULSIONS 250 ML IV SCH (21:27)
--- NOTE | 2020-07-22 21:30 | NUR ---
TPN: TPN verified with second RN, tubing primed with filter in place. TPN running via PICC line at 43 ml/hr with Lipids at 10 ml/hr. Patient tolerating well with no adverse reaction noted.
[2020-07-22 21:45] LABS: HEMATOCRIT 21.3 % (36-54); HEMOGLOBIN 6.9 g/dL (14.0-18.0)
--- NOTE | 2020-07-22 21:45 | NUR ---
lab Results: H&H Reported by Lab 6..3. Will notify
--- NOTE | 2020-07-22 21:48 | NUR ---
PAGED DR. MADRIGAL PAGER # [phone]
--- NOTE | 2020-07-22 21:50 | NUR ---
Paged: Dr. Zimmerman paged r/t H&H result pending return call at this time.
[2020-07-22] MEDS: metroNIDAZOLE 500 mg/NS 100 ML IV SCH (22:00)
--- NOTE | 2020-07-22 22:00 | NUR ---
MD: returned call, Dr. Duff aware of H&H, order in place to transfuse 2 units of PRBC.
--- NOTE | 2020-07-22 22:39 | NUR ---
Blood: First unit of PRBC being infused, education provided to patient on adverse effects. Patient unable to verify understanding r/t cognitive limitations. Pre vitals taken, patient stable in no acute distress and or discomfort.
--- NOTE | 2020-07-22 23:00 | NUR ---
G-Tube: GTube care preformed, area cleansed with NS and dry split gauze placed, redness and scant bloody drainage noted. No foul odor. Patient tolerated well, Monitoring at this time.
[2020-07-23] VITALS (18 sets, daily range): BP systolic 110–155
--- NOTE | 2020-07-23 00:01 | NUR ---
Wound Dressings: Wound dsg clean dry and intact to LT lower Ex, Coccyx/Sacrum dressing changed r/t being soiled. Patient tolerated well. No signs of infection noted, no drainage.
--- NOTE | 2020-07-23 00:30 | NUR ---
Blood: First unit of PRBC infused, patient tolerated well with no adverse reaction.
[2020-07-23] MEDS ORDERED: metroNIDAZOLE 500 mg/NS 200 ML IV ONE (00:40)
--- NOTE | 2020-07-23 00:47 | NUR ---
Blood: 2nd Unit of PRBC infusing, patient tolerating well with no signs of adverse reaction noted. Will continue to monitor at this time.
[2020-07-23] MEDS: PANTOPRAZOLE SODIUM 40 MG in NS 50 ML IV SCH ×5 (00:55→20:53)
[2020-07-23] MEDS: LevALBUTEROL HCL 1.25 MG/0.5 ML *CONC.* VIAL.NEB (XOPENEX CONC.) INH SCH ×4 (01:11→19:38)
--- NOTE | 2020-07-23 01:59 | NUR ---
Blood: Second unit of PRBC infused, patient tolerated well with no adverse reaction.
--- NOTE | 2020-07-23 02:35 | NUR ---
Nsg Rounds: Patient noted to have facial grimacing, with signs of discomfort. PRN Tylenol given via Suppository per order. Will re-assess, charge aware.
--- NOTE | 2020-07-23 02:45 | NUR ---
Discomfort: Patients discomfort noted to be increasing, patient fidgeting with left arm tugging at medial lines. Will notify MD and request PRN, charge aware.
--- NOTE | 2020-07-23 02:50 | NUR ---
PAGED DR. MADRIGAL PAGER # [phone]
--- NOTE | 2020-07-23 03:17 | NUR ---
MD MABEL MADRIGAL 2ND CALL PAGER [phone] CALLED ANSWERING SERVICE BUT THERE WAS NO ANSWER. Addendum: 07/23/20 at 0319 by Lisa Cummings PR/ ANSWERING SERVICE [phone]
--- NOTE | 2020-07-23 03:20 | NUR ---
Nsg Rounds: Patient remains agitated, fidgeting and continues to pull at medical lines. Distraction provided, minimally effective. has not returned page at this time.
[2020-07-23] MEDS: metroNIDAZOLE 500 mg/NS 100 ML IV SCH ×3 (05:03→22:02)
--- NOTE | 2020-07-23 05:15 | NUR ---
Nsg Rounds: Patient resting comfortably with eyes closed in no acute distress and discomfort, all safety checks in place. Bed in lowest locked position with call light in reach.
[2020-07-23 06:54] LABS: HEMATOCRIT 25.2 % (36-54); HEMOGLOBIN 8.7 g/dL (14.0-18.0)
--- NOTE | 2020-07-23 06:55 | NUR ---
Closing Note: Patient report given to AM RN via SBAR report.
[2020-07-23 07:02] LABS: ALANINE AMINOTRANSFERASE 17 U/L (12-78); ALBUMIN 1.8 g/dL (3.4-4.8); ANION GAP 8 (5-15); ASPARTATE AMINOTRANSFERASE 21 U/L (10-37); CALCIUM 7.4 mg/dL (8.4-11.0); CHLORIDE 108 mmol/L (98-107); CREATININE 1.73 mg/dL (0.55-1.30); GLUCOSE 354 mg/dL (70-99); PHOSPHORUS 3.7 mg/dL (2.7-4.5); SODIUM SERUM 140 mmol/L (136-145); TOTAL BILIRUBIN 0.4 mg/dL (0.0-1.0); UREA NITROGEN, BLOOD 38 mg/dL (8-21)
--- NOTE | 2020-07-23 07:20 | NUR ---
Received patient and endorsed report by NOC shift. Patient sleeping in bed with side rails x 3 up. Call light with in reach.
--- NOTE | 2020-07-23 08:25 | NUR ---
MD Glass called, gave update as requested.
[2020-07-23 08:39] LABS: HEMATOCRIT 24.9 % (36-54); HEMOGLOBIN 8.5 g/dL (14.0-18.0)
[2020-07-23] MEDS: CEFEPIME 0.5 GM in D5W 50 ML IV SCH ×2 (09:23→20:51)
[2020-07-23] MEDS ORDERED: fentaNYL CITRATE/PF 100 MCG/2 ML AMP IVP PRN ×2 (09:30)
--- NOTE | 2020-07-23 10:00 | NUR ---
At this time, performed time out with MD Benjamin and MD Lobo prior to colonoscopy, verified patient name, correct patient, correct consent and procedure, history and physical, and correct site with
--- NOTE | 2020-07-23 10:32 | NUR ---
At this time, Md Benjamin completed colonoscopy procedure. Instructed to stay at bedside for 5 minutes for first 15 minutes then one time 15 minutes to monitor patient. Patient stable at this time, tolerated procedure WNL. Md Benjamin new order Jevity 1.2 at 40 cc an hour, orders placed. MD Benjamin stated patient may transfer to tele unit. Will continue to monitor.
--- NOTE | 2020-07-23 10:37 | NUR ---
At bedside assessing patient, in no acute distress, breathing even and unlabored, VS stable.
--- NOTE | 2020-07-23 10:42 | NUR ---
At this time, at bedside assessing patient, in no acute distress, breathing even and unlabored, VS stable.
--- NOTE | 2020-07-23 10:47 | NUR ---
At this time, at bedside assessing patient, in no acute distress, breathing even and unlabored, VS stable.
[2020-07-23] MEDS: KCL 20 mEq in D5/0.45NS 1000mL 1,000 ML IV SCH (12:36)
[2020-07-23 13:41] LABS: HEMATOCRIT 24.6 % (36-54); HEMOGLOBIN 8.5 g/dL (14.0-18.0)
--- NOTE | 2020-07-23 17:05 | NUR ---
Transferred patient to tele status with second nurse assistance via usha. Patient placed on portable tele. Gave receiving MST nurse report and endorsed patient. Patient in bed with side rails x 3 up. Call light with in reach.
[2020-07-23] MEDS: LATANOPROST 2.5 ML DROPS (XALATAN) OP SCH (17:16)
--- NOTE | 2020-07-23 17:30 | NUR ---
CARE ASSUMED. PICC AND RIJ NOTED. SR-ST ON MONITOR. ON ROOM AIR. F/C IS IN PLACE, DRAINING YELLOW URINE. CALL LIGHT IN PLACE, BED LOCKED AT THE LOWEST POSITION, WILL CONTINUE TO MONITOR.
--- NOTE | 2020-07-23 17:30 | NUR ---
MD Glass called regarding blood culture preliminary testing positive for gram positive cocci in cluster and MRSA of the nares, stated will look into it.
[2020-07-23 18:10] LABS: HEMATOCRIT 28.9 % (36-54)
--- NOTE | 2020-07-23 18:10 | NUR ---
BS 120. NO COVERAGE NEEDED.
[2020-07-23 18:11] LABS: HEMOGLOBIN 9.5 g/dL (14.0-18.0)
[2020-07-23] MEDS: FLUCONAZOLE 100 mg/ NS 50 ML IV SCH (18:26)
--- NOTE | 2020-07-23 19:30 | NUR ---
CHANGE OF SHIFT; pt. endorsed, just got transferred from ICU this evening S/P EGD and colonoscopy no active bleed. had blood transfusion. no respiratory distress. on contact isolation for MRSA nares. fall risk and seizure precautions. side rails padded. unable to use call light,
--- NOTE | 2020-07-23 20:00 | NUR ---
NOTES: pt. on breathing treatment when checked, on room air, noted some wheezing occasionally and non productive cough. HOB elevated. pt. contracted on rt. arm.. PICC line on rt. upper arm and central line on rt. jugular with triple lumen cath. IV Protonix at 10 cc/hr. and main IV of D5 !/2 NS + 20 meq KCL @ 100 cc/hr. TPN/Lipids infusing via PICC line. G tube feed in progress. noguera cath to OSD with yellow urine output. campus monitor shows sinus rhythm.
[2020-07-23] MEDS: TPN CENTRAL IV SCH ×8 (20:22)
[2020-07-23] MEDS: SODIUM ACETATE IV SCH ×8 (20:22)
[2020-07-23] MEDS: [UNRECOGNIZED DRUG - OTHER] IV SCH ×8 (20:22)
[2020-07-23] MEDS: POTASSIUM CHLORIDE IV SCH ×8 (20:22)
[2020-07-23] MEDS: FAT EMULSIONS 250 ML IV SCH (20:24)
--- NOTE | 2020-07-23 22:00 | NUR ---
NOTES: pt. checked and sleeping at this time. no respiratory distress.
[2020-07-23 22:49] LABS: HEMATOCRIT 26.7 % (36-54); HEMOGLOBIN 8.8 g/dL (14.0-18.0)
--- NOTE | 2020-07-23 23:30 | NUR ---
NOTES: complete hs care done, repositioned. rt. very much contracted, able to move left arm. noted scratches on rt. upper abdomen and rt. knee. open wound skin off on rt. lower leg with foam dressing. rt. buttock wound cleanse with soap and water and foam dressing applied. oral care done, lips pretty dry, non verbal. rt. jugular line, dressing changed. resume main IV and Protonix drip @ 10 cc/hr. rt. PICC line keep showing high pressure because of the contraction, TPN/Lipids infusing, sluggishly flushing. abdomen distended, g tube site intact ,on Jevity 1.5 feed @ 40 cc/hr. forey cath to OSD. both sequentials on.
[2020-07-24 01:00] VITALS: BP_SYST 136
[2020-07-24] MEDS: LevALBUTEROL HCL 1.25 MG/0.5 ML *CONC.* VIAL.NEB (XOPENEX CONC.) INH SCH ×4 (01:00→19:40)
--- NOTE | 2020-07-24 01:26 | NUR ---
NOTES: pt. still awake, been scratching his head every now and then, noted some scar on his rt. side of head, no open skin. BS checked 111. no coverage. on contact isolation fro MRSA nares. on room air. seizure precautions in place, padded side rails.
--- NOTE | 2020-07-24 03:30 | NUR ---
NOTES: condition observed, continue to monitor. contact isolation for MRSA nares. still with wheezing on stimulation.
[2020-07-24] MEDS: PANTOPRAZOLE SODIUM 40 MG in NS 50 ML IV SCH ×5 (03:42→21:53)
--- NOTE | 2020-07-24 05:00 | NUR ---
NOTES: gaurav care done, repositioned. rt jugular dressing changed. PICC line port, sluggish to flush, TPN/lipids on one port.
[2020-07-24] MEDS: metroNIDAZOLE 500 mg/NS 100 ML IV SCH (05:09)
[2020-07-24] MEDS: KCL 20 mEq in D5/0.45NS 1000mL 1,000 ML IV SCH (05:11)
[2020-07-24 06:43] LABS: BASOPHILS # (AUTO) 0.1 K/uL (0.0-0.2); BASOPHILS % (AUTO) 0.6 % (0.0-2.0); EOSINOPHILS # (AUTO) 0.7 K/uL (0.0-0.4); EOSINOPHILS % (AUTO) 6.7 % (0.0-4.0); HEMATOCRIT 24.4 % (36-54); HEMOGLOBIN 8.2 g/dL (14.0-18.0); LYMPHOCYTES # (AUTO) 2.6 K/uL (1.0-5.5); LYMPHOCYTES % (AUTO) 24.7 % (20.5-51.5); MEAN CORPUSCULAR HEMOGLOBIN 30 pg (27-31); MEAN CORPUSCULAR HGB CONC 34 % (32-36); MEAN CORPUSCULAR VOLUME 91 fL (79.0-98.0); MONOCYTES # (AUTO) 1.1 K/uL (0.0-1.0); MONOCYTES % (AUTO) 10.4 % (1.7-9.3); NEUTROPHILS % (AUTO) 57.6 % (40.0-70.0); PLATELET COUNT (AUTO) 220 K/uL (130-430); RED BLOOD CELL COUNT(AUTO) 2.68 MIL/uL (4.2-6.2); RED CELL DISTRIBUTION WIDTH 18.5 % (9.0-15.0); WHITE BLOOD COUNT (AUTO) 10.4 K/uL (4.8-10.8)
--- NOTE | 2020-07-24 06:53 | NUR ---
CLOSING NOTES; pt. remains non verbal, able to understand simple request. gets agitated when stimulated. IV continuous .TPN.lipids in fusing via PICC line. Protonix drip and main IVF on rt. jugular TLC. g tube continuous. site clean , quite distended abdomen, no bleeding. noguera cath intact. on seizure precautions. for further care and assist. will endorse to incoming shift. observe contact isolation for MRSA nares.
[2020-07-24 07:26] LABS: ALANINE AMINOTRANSFERASE 16 U/L (12-78); ANION GAP 8 (5-15); ASPARTATE AMINOTRANSFERASE 20 U/L (10-37); CALCIUM 8.2 mg/dL (8.4-11.0); CHLORIDE 112 mmol/L (98-107); GLUCOSE 131 mg/dL (70-99); PHOSPHORUS 2.8 mg/dL (2.7-4.5); POTASSIUM 4.3 mmol/L (3.5-5.1); SODIUM SERUM 143 mmol/L (136-145); TOTAL BILIRUBIN 0.3 mg/dL (0.0-1.0); UREA NITROGEN, BLOOD 28 mg/dL (8-21)
[2020-07-24 08:00] VITALS: BP_SYST 147
[2020-07-24] MEDS: CEFEPIME 0.5 GM in D5W 50 ML IV SCH ×2 (10:21→21:48)
[2020-07-24] MEDS: VANCOMYCIN HCL 1,000 MG in NS 250 ML IV SCH (10:35)
[2020-07-24 11:24] VITALS: BP_SYST 148
--- NOTE | 2020-07-24 11:26 | NUR ---
DISCHARGE PLANNING Called & spoke with Dr Zimmerman to discuss plan of care. States not ready for discharge yet, GTF started will eval if palmira & can titrate off TPN. Waiting for culture results. Possible dc back to SNF tomorrow if stable.
--- NOTE | 2020-07-24 12:00 | NUR ---
rounds turned repositioned for comfort. no hypo hyperglycemic reaction noted. no sob noted. resting comfortably at this time.
--- NOTE | 2020-07-24 12:27 | NUR ---
Nutrition F/U Admitting Diagnosis: Abd cellulitis w/ possible abscess Medical History Comment: PMH: HTN, CVA, dysphagia per physician notes Pt also found w/ moderate malnutrition per physician notes SARS-CoV-2 Ag (Rapid) Negative 07/21 Subjective Information: Pt seen in bed, EN and TPN infusing as ordered. Pt is aphasic per EMR. RN stated that EN is tolerated and agreed w/ RD rec to taper off TPN. Per EMR review, pt is S/P EGD and colonoscopy which showed no active bleeding. Current EN and TPN combined provides 2244 kcal, 104gm protein and 2415ml fluids daily which meets excessive nutrients. RD rec to increase EN to meet estimated nutrient needs and to discontinue TPN. Current Diet Order/Nutrition Support: Jevity 1.2 at 40ml/hr, FWF 50ml Q6H via GT +D20% AA8.5% at 50ml/hr, IL20% ar 10ml/hr via central line. Pertinent Medications: Pantoprazole, Zofran Pertinent Labs 07/24 Na 143WNL, K 4.3WNL, BG 131H, POC BG 129H, BUN 28H, CRE 1.6H, 07/22 TG 127WNL Skin Integrity Comment: Michael scale: 13; per RN report, +wound to anterior abdomen and sacrum. Non-pitting edema to BLE. Current % PO N/A Estimated Energy Expenditure (kcals/day) 4451-9859 kcal/day (MSJ x 1.2-1.5 CBW for acute state, infection, wound) Estimated Protein Required (g/day) 91-114 gm/day (1.2-1.5 gm/kg CBW for acute state, infection, wound) Estimated Fluid Required (l/day) 1.9-2.3 L/day (25-30 ml/kg CBW for geriatric maintenance) Problem/Etiology/Signs/Symptoms Increased nutritional needs related to metabolic demands as evidenced by estimated nutritional requirements for acute state, infection, and wound healing. (* ongoing) Altered nutrition-related labs r/t pathophysiological factors AEB elevated BG. (*new) Expected Outcomes/Goals - Monitor EN tolerance and intake w/ goal of pt meeting at least 80% of estimated nutritional needs, labs trending WNL, normal GI function, and skin integrity/wt maintenance Dietitian Recommendations * Recommend discontinue TPN. * Recommend: Jevity 1.2 at 65ml/hr (goal rate), Lex BID, FWF 180ml Q6H via GT Provides: 2032 Kcal, 92gm protein and 1976ml fluids daily. Meets: 97% of upper end of estimated calorie needs and 81% of upper end of estimated protein needs. Follow Up High Risk: F/U in 2-3days
--- NOTE | 2020-07-24 12:40 | NUR ---
Dietitian Recommendations * Recommend discontinue TPN. * Recommend: Jevity 1.2 at 65ml/hr (goal rate), Lex BID, FWF 180ml Q6H via GT Provides: 2032 Kcal, 92gm protein and 1976ml fluids daily. Meets: 97% of upper end of estimated calorie needs and 81% of upper end of estimated protein needs. Please see Nutrition F/U note for details. HALF-WAY, RD
--- NOTE | 2020-07-24 14:00 | NUR ---
rounds sleeping at intervals. turned repositoned for comfort. Addendum: 07/24/20 at 1410 by Nakita Padilla RN Amended: Links added.
[2020-07-24 15:33] VITALS: BP_SYST 141
[2020-07-24] MEDS: LATANOPROST 2.5 ML DROPS (XALATAN) OP SCH (16:50)
--- NOTE | 2020-07-24 18:30 | NUR ---
closing notes no hypo hyperglycemic reaction noted. seen by dr shay and with orders. bed to the lowest position and side rails up and locked. call light withn reached. gt feeding palmira well. no residual noted.
[2020-07-24] MEDS: FLUCONAZOLE 100 mg/ NS 50 ML IV SCH (18:34)
[2020-07-24 20:05] VITALS: BP_SYST 150
[2020-07-24] MEDS: [UNRECOGNIZED DRUG - OTHER] IV SCH ×8 (21:00)
[2020-07-24] MEDS: TPN CENTRAL IV SCH ×8 (21:00)
[2020-07-24] MEDS ORDERED: SODIUM ACETATE IV SCH ×9 (21:00)
[2020-07-24] MEDS ORDERED: [UNRECOGNIZED DRUG - OTHER] IV SCH ×9 (21:00)
[2020-07-24] MEDS ORDERED: TPN CENTRAL IV SCH ×9 (21:00)
[2020-07-24] MEDS ORDERED: POTASSIUM ACETATE IV SCH ×9 (21:00)
[2020-07-24] MEDS: SODIUM ACETATE IV SCH ×8 (21:00)
[2020-07-24] MEDS: POTASSIUM CHLORIDE IV SCH ×8 (21:00)
[2020-07-24] MEDS ORDERED: K PHOS IV SCH ×9 (21:00)
[2020-07-24] MEDS: FAT EMULSIONS 250 ML IV SCH (21:50)
[2020-07-25] VITALS: BP_SYST 157
[2020-07-25] MEDS: LevALBUTEROL HCL 1.25 MG/0.5 ML *CONC.* VIAL.NEB (XOPENEX CONC.) INH SCH ×4 (01:07→19:54)
[2020-07-25] MEDS: PANTOPRAZOLE SODIUM 40 MG in NS 50 ML IV SCH ×4 (03:24→18:00)
[2020-07-25 07:04] LABS: ANION GAP 7 (5-15); CALCIUM 8.3 mg/dL (8.4-11.0); CHLORIDE 109 mmol/L (98-107); GLUCOSE 125 mg/dL (70-99); POTASSIUM 4.1 mmol/L (3.5-5.1); SODIUM SERUM 140 mmol/L (136-145); UREA NITROGEN, BLOOD 24 mg/dL (8-21)
--- NOTE | 2020-07-25 07:10 | NUR ---
opening note received bedside sbar from night RN, patient in bed, respirations even, non labored, bed in low and locked position, call light within reach, bed alarm on
[2020-07-25 08:00] VITALS: BP_SYST 142
--- NOTE | 2020-07-25 08:00 | NUR ---
nurse note obtained vs, patient in bed, respirations even, non labored, bed in low and locked position, call light within reach, bed alarm on.
--- NOTE | 2020-07-25 09:00 | NUR ---
nurse note administered medications, repositioned patient, bed in low and locked position, call light within reach, bed alarm on
[2020-07-25] MEDS: CEFEPIME 0.5 GM in D5W 50 ML IV SCH ×2 (09:19→22:06)
--- NOTE | 2020-07-25 10:50 | NUR ---
md rounds Dr. Benjamin bedside examining [facility]
[2020-07-25 11:00] VITALS: BP_SYST 157
--- NOTE | 2020-07-25 11:00 | NUR ---
TPN AND LIPIDS PER DR. NATHAN LIZAMA TO DC LIPIDS AND TPN. STOPPED LIPIDS AND REDUCED RATE OF TPN TO 30 ML/HR
[2020-07-25 11:27] VITALS: BP_SYST 141
[2020-07-25] MEDS: VANCOMYCIN HCL 1,000 MG in NS 250 ML IV SCH (11:45)
--- NOTE | 2020-07-25 12:10 | NUR ---
DISCHARGE PLANNING Called & spoke with Dr Zimmerman, gave phone order for dc planning back to SNF. States will come in later to eval pt, will wean off TPN prior to discharge if [facility].
--- NOTE | 2020-07-25 13:00 | NUR ---
IJ patient pulled out IJ , no bleeding, paged Dr. Zimmerman
--- NOTE | 2020-07-25 13:00 | NUR ---
TPN REDUCED RATE OF TPN TO 20ML/HR
--- NOTE | 2020-07-25 15:00 | NUR ---
TPN REDUCED RATE OF TPN TO 10ML/HR
--- NOTE | 2020-07-25 15:30 | NUR ---
nurse note provided patient with partial bed bath, changed linens, repositioned patient, patient tolerated well, no signs of distress noted
[2020-07-25 15:42] VITALS: BP_SYST 150
[2020-07-25 16:17] LABS: BASOPHILS # (AUTO) 0.1 K/uL (0.0-0.2); BASOPHILS % (AUTO) 0.7 % (0.0-2.0); EOSINOPHILS # (AUTO) 0.8 K/uL (0.0-0.4); EOSINOPHILS % (AUTO) 7.7 % (0.0-4.0); HEMATOCRIT 26.9 % (36-54); HEMOGLOBIN 8.8 g/dL (14.0-18.0); LYMPHOCYTES # (AUTO) 2.8 K/uL (1.0-5.5); MEAN CORPUSCULAR HEMOGLOBIN 31 pg (27-31); MEAN CORPUSCULAR HGB CONC 33 % (32-36); MEAN CORPUSCULAR VOLUME 94 fL (79.0-98.0); MONOCYTES % (AUTO) 9.8 % (1.7-9.3); NEUTROPHILS # (AUTO) 5.7 K/uL (1.8-7.7); NEUTROPHILS % (AUTO) 54.8 % (40.0-70.0); PLATELET COUNT (AUTO) 249 K/uL (130-430); RED BLOOD CELL COUNT(AUTO) 2.87 MIL/uL (4.2-6.2); RED CELL DISTRIBUTION WIDTH 18.9 % (9.0-15.0); WHITE BLOOD COUNT (AUTO) 10.4 K/uL (4.8-10.8)
--- NOTE | 2020-07-25 17:00 | NUR ---
TPN DISCONTINUED TPN.
--- NOTE | 2020-07-25 17:12 | NUR ---
nurse note IVF's running as ordered, patient in bed, respirations even, non labored, bed in low and locked position, call light within reach, bed alarm on
[2020-07-25] MEDS: LATANOPROST 2.5 ML DROPS (XALATAN) OP SCH (18:01)
--- NOTE | 2020-07-25 19:10 | NUR ---
CLOSING NOTE PROVIDED BEDSIDE SBAR TO NIGHT RN, PATIENT IN BED, RESPIRATIONS EVEN, NON LABORED, BED IN LOW AND LOCKED POSITION, CALL LIGHT WITHIN REACH, BED ALARM ON, IVF'S RUNNING ORDERED, G TUBE FLUSHED FREELY, RUNNING DIRECTED, DESAI DRAINING BY GRAVITY, ENDORSED CARE TO NIGHT RN
[2020-07-25 20:15] VITALS: BP_SYST 150
[2020-07-25] MEDS: FLUCONAZOLE 100 mg/ NS 50 ML IV SCH (20:30)
[2020-07-25] MEDS ORDERED: [UNRECOGNIZED DRUG - OTHER] IV SCH ×10 (21:00)
[2020-07-25] MEDS ORDERED: POTASSIUM ACETATE IV SCH ×10 (21:00)
[2020-07-25] MEDS ORDERED: SODIUM ACETATE IV SCH ×10 (21:00)
[2020-07-25] MEDS ORDERED: TPN CENTRAL IV SCH ×10 (21:00)
[2020-07-25] MEDS ORDERED: K PHOS IV SCH ×10 (21:00)
[2020-07-26] MEDS: PANTOPRAZOLE SODIUM 40 MG in NS 50 ML IV SCH ×4 (00:51→13:47)
[2020-07-26] MEDS: LevALBUTEROL HCL 1.25 MG/0.5 ML *CONC.* VIAL.NEB (XOPENEX CONC.) INH SCH ×3 (01:05→13:29)
[2020-07-26 03:10] VITALS: BP_SYST 160
[2020-07-26 07:12] LABS: ANION GAP 10 (5-15); CALCIUM 8.8 mg/dL (8.4-11.0); CHLORIDE 107 mmol/L (98-107); CREATININE 1.31 mg/dL (0.55-1.30); GLUCOSE 129 mg/dL (70-99); PHOSPHORUS 3.6 mg/dL (2.7-4.5); POTASSIUM 4.2 mmol/L (3.5-5.1); SODIUM SERUM 140 mmol/L (136-145); UREA NITROGEN, BLOOD 19 mg/dL (8-21)
--- NOTE | 2020-07-26 07:44 | NUR ---
Opening Note received bedside SBAR report from shift supervisor melting RN, patient resting in bed, respirations even and unlabored on room air, no pain noted using FLACC scale, no acute distress noted, educated patient on use of call light and asked to call for assistance, call light in reach, bed in low and locked position, bed alarm on.
[2020-07-26 08:00] VITALS: BP_SYST 155
[2020-07-26] MEDS: CEFEPIME 0.5 GM in D5W 50 ML IV SCH (08:52)
--- NOTE | 2020-07-26 10:05 | NUR ---
Oral Care provided oral care, oral care was difficult due to patient attempting to hit RN and hit away oral care swab with his left hand, no acute distress noted, patient resting in bed.
--- NOTE | 2020-07-26 10:10 | NUR ---
Discharge Planning: [facility] faxed pt referral to [facility] (f [phone] p [phone]) DCP to follow up. Addendum: 07/26/20 at 1510 by Jennifer Mansfield DP DCP spoke to Sammy at [facility] (f [phone] p [phone]) patient will go to 205, transportation arranged with [facility] ([phone]) Will Call [facility]. DCP made nurse aware and took patient packet to nurse station.
[2020-07-26] MEDS: VANCOMYCIN HCL 1,000 MG in NS 250 ML IV SCH (11:04)
[2020-07-26 11:30] VITALS: BP_SYST 154
--- NOTE | 2020-07-26 12:00 | NUR ---
Free Water patient tolerating tube feeding well at 40ml/hr, residual 20ml, 50ml free water given via g-tube per orders, dressing to g-tube site changed, patient tolerated well, no acute distress noted.
--- NOTE | 2020-07-26 14:36 | NUR ---
RN Rounds patient resting in bed, respirations even and unlabored on room air, no pain noted using FLACC scale, no acute distress noted.
--- NOTE | 2020-07-26 15:16 | NUR ---
Spoke with physician spoke with Dr. Zimmerman, received orders to discharge patient to [facility], received orders for medication reconciliation, verified with read back.
--- NOTE | 2020-07-26 15:21 | NUR ---
Called patients family called patients nephew Roscoe Jonas, informed Roscoe that patient will be transferred back to [facility] this evening, Roscoe verbalized understanding and is agreeable for transfer.
--- NOTE | 2020-07-26 15:22 | NUR ---
Discharge planning called [facility] , spoke with Carol, set up pick and shovel man time for 1700.
--- NOTE | 2020-07-26 15:30 | NUR ---
Wound Care educated patient on purpose and procedure for wound care, wound care completed, patient tolerated well, no pain noted during or after wound care, see MST shift assessment for wound care, photographs of wounds taken and placed in patients chart.
[2020-07-26 15:46] VITALS: BP_SYST 149
[2020-07-26 15:59] VITALS: BP_SYST 149
--- NOTE | 2020-07-26 16:29 | NUR ---
Called Report called [facility], gave SBAR report to Sari, informed her of pickup time with [facility] at 1700.
--- NOTE | 2020-07-26 17:31 | NUR ---
Ambulance follow up Called [facility] for ETA of ambulance for transport, per dispatch they will be arriving in about 10 minutes.
--- NOTE | 2020-07-26 17:54 | NUR ---
Discharge provided patient with discharge packet and instructions, PICC line to right upper arm clean, dry, and intact, noguera catheter draining to gravity, respirations even and unlabored on room air, no acute distress noted, no pain noted using FLACC scale, report given to [facility], all belongings sent with patient, patient transferred to [facility] via gurney by S ambulance.
== END 2020-07-26 17:55 | DRG 393 ==
LOC: SED 18:53 → SMU 20:21 → STU 22:15 → SIC 07-22 08:47 → STU 07-23 17:00
PROVIDERS: ADMIT Family Medicine; ATTEND Family Medicine
PROC: 02HV33Z Insertion of Infusion Device into Superior Vena Cava, Percutaneous Approach (ICD-10-PCS; 2020-07-22)
PROC: B548ZZA Ultrasonography of Superior Vena Cava, Guidance (ICD-10-PCS; 2020-07-22)
PROC: 30233N1 Transfusion of Nonautologous Red Blood Cells into Peripheral Vein, Percutaneous Approach (ICD-10-PCS; 2020-07-22)
PROC: 0DB68ZX Excision of Stomach, Via Natural or Artificial Opening Endoscopic, Diagnostic (ICD-10-PCS; principal; 2020-07-22 14:30)
PROC: 0DJD8ZZ Inspection of Lower Intestinal Tract, Via Natural or Artificial Opening Endoscopic (ICD-10-PCS; 2020-07-23)
DX: K94.22 Gastrostomy infection (principal); J69.0 Pneumonitis due to inhalation of food and vomit; J96.90 Respiratory failure, unspecified, unspecified whether with hypoxia or hypercapnia; L02.211 Cutaneous abscess of abdominal wall; D62 Acute posthemorrhagic anemia; E44.0 Moderate protein-calorie malnutrition; J90 Pleural effusion, not elsewhere classified; K92.0 Hematemesis; N39.0 Urinary tract infection, site not specified; R78.81 Bacteremia; K92.2 Gastrointestinal hemorrhage, unspecified; L03.311 Cellulitis of abdominal wall; K94.21 Gastrostomy hemorrhage; Y83.8 Other surgical procedures as the cause of abnormal reaction of the patient, or of later complication, without mention of misadventure at the time of the procedure; B95.8 Unspecified staphylococcus as the cause of diseases classified elsewhere; J44.9 Chronic obstructive pulmonary disease, unspecified; E11.9 Type 2 diabetes mellitus without complications; F03.90 Unspecified dementia, unspecified severity, without behavioral disturbance, psychotic disturbance, mood disturbance, and anxiety; I10 Essential (primary) hypertension; K22.2 Esophageal obstruction; K31.7 Polyp of stomach and duodenum; Z20.828 Contact with and (suspected) exposure to other viral communicable diseases; K64.8 Other hemorrhoids; Z78.9 Other specified health status; Z86.73 Personal history of transient ischemic attack (TIA), and cerebral infarction without residual deficits; Y92.89 Other specified places as the place of occurrence of the external cause; Z68.27 Body mass index [BMI] 27.0-27.9, adult
CPT/HCPCS: 36415; 36430; 43239; 71045; 80048; 80053; 81000-TC; 82962; 83735-TC; 84100-TC; 84478-TC; 85018-TC; 85025; 85610-TC; 85730-TC; 86886; 86900; 86901; 86920; 87040-TC; 87070-TC; 87075-TC; 87081; 87186-TC; 88305; 88312; 88313; 94640; 94760; 99285; A6209; C1751; C9113; G0378; J0295; J0610; J0692; J1450; J1815; J2250; J2354; J2405; J2765; J3010; J3370; J3475; J3480; J3490; J7030; J7040; J7050; J7060; J7612; P9021; Q9967

== ENCOUNTER 2021-03-14 16:34 | Inpatient (IN) | payer OTHER, MEDICAID, SELFPAY ==
[~2021-03-14] VITALS: Ht 167.6 cm; Wt 88.9 kg
[~2021-03-14 16:34] MED LIST changes: +ASCO500T20 GT; +BISA10SU61 RC; +LIP10 GT; -LOVI30 SQ; +METO-442 GT; +OMEP40CA13 GT; +RIVA10TA GT; +ZINC220T4 GT
[2021-03-14 16:40] VITALS: BP_SYST 157
--- NOTE | 2021-03-14 16:40 | NUR ---
PT TO BED 8 FOR EVALUATION. REPORT GIVEN TO RED VIDES WHO WILL ASSUME CARE.
[2021-03-14] MEDS ORDERED: IPRATROPIUM/ALBUTEROL SULFATE 3 ML AMPUL.NEB (DUONEB) INH ONE (16:45)
--- NOTE | 2021-03-14 16:45 | NUR ---
PT BIBA FROM [facility] FOR FLUID OVERLOAD SYMPTOMS. PT PRESENTS SOB WITH WHEEZING ON NC 02@ 3L.PT ALSO ARRIVES WITH PICC LINE UNDRESSED THAT UPON INITIAL EVALUATION IS OCCLUDED AND UNABLE TO FLUSH. PT IS AWAKE AND ALERT BUT NON-VERBAL. HE IS CONTRACTURED UPPER EXTREMETIES. PT ALSO HAS A PRODUCTIVE COUGH. PT HAS G-TUBE IN PLACE.
--- NOTE | 2021-03-14 16:47 | NUR ---
ER DR. GARCIA AT THE BEDSIDE
[2021-03-14] MEDS ORDERED: HYT1 GT (16:51)
[2021-03-14] MEDS ORDERED: METO50TA7 GT (16:51)
[2021-03-14] MEDS ORDERED: PANT40TA45 GT (16:51)
[2021-03-14] MEDS ORDERED: AMLO10TA88 GT (16:51)
--- NOTE | 2021-03-14 16:55 | NUR ---
PORTABLE X-RAY AT THE BEDSIDE
--- NOTE | 2021-03-14 16:56 | NUR ---
Medication reconciliation completed with information provided by PT. Any prior medication reconciliation on file was reviewed and corrected.
--- NOTE | 2021-03-14 17:35 | NUR ---
LAB AT THE BEDSIDE FOR BLOOD DRAW
[2021-03-14] MEDS ORDERED: ALTEPLASE 2 MG VIAL MC ONE ×2 (18:00→18:02)
[2021-03-14] MEDS ORDERED: methylPREDNISolone SOD SUCC/PF 62.5 MG/ML VIAL IVP ONE (18:00)
[2021-03-14 18:12] LABS: BASOPHILS # (AUTO) 0.1 K/uL (0.0-0.2); BASOPHILS % (AUTO) 0.4 % (0.0-2.0); EOSINOPHILS # (AUTO) 0.5 K/uL (0.0-0.4); EOSINOPHILS % (AUTO) 3.9 % (0.0-4.0); HEMATOCRIT 24.8 % (36-54); HEMOGLOBIN 8.1 g/dL (14.0-18.0); LYMPHOCYTES # (AUTO) 2.4 K/uL (1.0-5.5); LYMPHOCYTES % (AUTO) 18.2 % (20.5-51.5); MEAN CORPUSCULAR HEMOGLOBIN 27 pg (27-31); MEAN CORPUSCULAR HGB CONC 33 % (32-36); MEAN CORPUSCULAR VOLUME 84 fL (79.0-98.0); MONOCYTES # (AUTO) 1.2 K/uL (0.0-1.0); MONOCYTES % (AUTO) 9.2 % (1.7-9.3); NEUTROPHILS # (AUTO) 9.1 K/uL (1.8-7.7); NEUTROPHILS % (AUTO) 68.3 % (40.0-70.0); PLATELET COUNT (AUTO) 390 K/uL (130-430); RED BLOOD CELL COUNT(AUTO) 2.95 MIL/uL (4.2-6.2); RED CELL DISTRIBUTION WIDTH 25.1 % (9.0-15.0); WHITE BLOOD COUNT (AUTO) 13.4 K/uL (4.8-10.8)
[2021-03-14 18:18] LABS: ANION GAP 14 (5-15); CALCIUM 8.4 mg/dL (8.4-11.0); CHLORIDE 95 mmol/L (98-107); CREATININE 3.05 mg/dL (0.55-1.30); GLUCOSE 112 mg/dL (70-99); SODIUM SERUM 124 mmol/L (136-145); UREA NITROGEN, BLOOD 70 mg/dL (8-21)
[2021-03-14 18:21] LABS: INR 1.3 (0.80-1.20); PROTHROMBIN TIME 13.1 SECS (9.5-12.5)
[2021-03-14 18:23] LABS: POTASSIUM 6.2 mmol/L (3.5-5.1)
[2021-03-14] MEDS ORDERED: INSULIN REGULAR, HUMAN 10 UNITS/0.1 ML INJ IVP ONE (18:30)
[2021-03-14] MEDS ORDERED: DEXTROSE 50% JECT 50 ML DISP.SYRIN IVP ONE (18:30)
[2021-03-14] MEDS ORDERED: SODIUM BICARBONATE 8.4% JECT 50 MEQ/50 ML SYRINGE IVP ONE (18:30)
[2021-03-14 18:36] LABS: ALANINE AMINOTRANSFERASE 13 U/L (12-78); ASPARTATE AMINOTRANSFERASE 22 U/L (10-37); TOTAL BILIRUBIN 0.2 mg/dL (0.0-1.0)
[2021-03-14 18:45] LABS: BILIRUBIN,URINE NEGATIVE (NEGATIVE); BLOOD, URINE NEGATIVE (NEGATIVE); CLARITY/URINE CLEAR (CLEAR); COLOR,URINE YELLOW (YELLOW); GLUCOSE,URINE NEGATIVE (NEGATIVE); KETONES,URINE NEGATIVE (NEGATIVE); LEUKOCYTE ESTERASE ,URINE NEGATIVE (NEGATIVE); NITRITE, URINE NEGATIVE (NEGATIVE); PROTEIN URINE TRACE (NEGATIVE); UROBILINOGEN,URINE 0.2 (0.2-1.0)
--- NOTE | 2021-03-14 19:13 | NUR ---
REPORT GIVEN TO RED GUERRERO FOR CONTINUING CARE
--- NOTE | 2021-03-14 19:15 | NUR ---
COVID AND MRSA SWAB DONE AT BEDSIDE, SAMPLES SENT TO LAB
--- NOTE | 2021-03-14 20:12 | NUR ---
Patient resting quietly. No acute distress noted.
--- NOTE | 2021-03-14 20:33 | NUR ---
Patient will be admitted to care of Dr. Zimmerman. Admitted to TELE unit. Will go to room 113A. Belongings list completed. Complete and up to date summary report printed. SBAR report to be given at bedside with opportunity for questions.
--- NOTE | 2021-03-14 20:33 | NUR ---
BS 127.
--- NOTE | 2021-03-14 20:58 | NUR ---
ADMISSION NOTE Received patient from ER via gabrielrjung, received report from CESAR MOON. Patient admitted with diagnosis of HYPERKALEMIA, SEVERE DEHYDRATION. Patient is not alert or oriented.
[2021-03-14 22:20] VITALS: BP_SYST 159
[2021-03-14 22:30] VITALS: BP_SYST 159
--- NOTE | 2021-03-14 22:58 | NUR ---
DR. KAITLIN MORTON PT SEEN AND EXAMINED.
[2021-03-14] MEDS ORDERED: BISACODYL 10 MG/SUPPOSITORY RC PRN (23:00)
[2021-03-14] MEDS ORDERED: METOCLOPRAMIDE HCL 10 MG TABLET GT PRN (23:00)
[2021-03-14] MEDS: NACL 0.9% 1,000 ML IV SCH (23:04)
[2021-03-14] MEDS ORDERED: ACETAMINOPHEN 650 MG/20.3 ML UDC GT PRN (23:15)
[2021-03-14] MEDS: LevALBUTEROL HCL 1.25 MG/0.5 ML *CONC.* VIAL.NEB (XOPENEX CONC.) INH SCH (23:18)
[2021-03-15] MEDS: methylPREDNISolone SOD SUCC/PF 62.5 MG/ML VIAL IVP SCH ×5 (00:19→22:02)
[2021-03-15] MEDS: amLODIPine BESYLATE 10 MG TABLET GT SCH ×2 (00:21→09:00)
[2021-03-15 01:20] VITALS: BP_SYST 150
[2021-03-15] MEDS: INSULIN REGULAR, HUMAN 100 UNITS/ML, 10 ML VIAL (humuLIN R) SUBCUT PRN ×3 (06:01→17:56)
--- NOTE | 2021-03-15 06:39 | NUR ---
Nutrition Update Michael Scale 11 noted. Pt admitted for Hyperkalemia, Severe Dehydration Diet: Glucerna 1.2 at 60ml/hr, FWF 65 via GT BMI: 26.2 kg/m2 RD to follow per nutrition care standards.
--- NOTE | 2021-03-15 06:43 | NUR ---
CLOSING NOTE PT RESTING IN BED, NO S/S OF ACUTE DISTRESS. BREATHING IS UNLABORED TO 2L O2 VIA NC. IVF INFUSING AT ORDERED RATE TO LEFT UPPER ARM PICC LINE. TUBE FEEDING RUNNING ORDERED, ASPIRATION PRECAUTIONS ARE IN PLACE. SEIZURE PRECAUTIONS ARE IN PLACE, NO SEIZURE ACTIVITY THROUGHOUT SHIFT. DESAI CATHETER UNABLE TO BE PLACED DESPITE 3 DIFFERENT NURSES TRYING, ATTEMPTED TO USE COUDE TIP WITH NO SUCCESS, WILL ENDORSE TO DAY SHIFT. ALL NEEDS MET. WILL ENDORSE CARE TO DAY SHIFT RN.
[2021-03-15 06:51] LABS: HEMATOCRIT 22.2 % (36-54); HEMOGLOBIN 7.3 g/dL (14.0-18.0); LYMPHOCYTES # (AUTO) 0.3 K/uL (1.0-5.5); LYMPHOCYTES % (AUTO) 4.5 % (20.5-51.5); MEAN CORPUSCULAR HEMOGLOBIN 28 pg (27-31); MEAN CORPUSCULAR HGB CONC 33 % (32-36); MEAN CORPUSCULAR VOLUME 83 fL (79.0-98.0); MONOCYTES # (AUTO) 0.1 K/uL (0.0-1.0); MONOCYTES % (AUTO) 1.2 % (1.7-9.3); NEUTROPHILS # (AUTO) 6.9 K/uL (1.8-7.7); NEUTROPHILS % (AUTO) 94.3 % (40.0-70.0); PLATELET COUNT (AUTO) 429 K/uL (130-430); RED BLOOD CELL COUNT(AUTO) 2.66 MIL/uL (4.2-6.2); RED CELL DISTRIBUTION WIDTH 24.8 % (9.0-15.0); WHITE BLOOD COUNT (AUTO) 7.3 K/uL (4.8-10.8)
[2021-03-15 06:56] LABS: ANION GAP 12 (5-15); CHLORIDE 99 mmol/L (98-107); CREATININE 3.04 mg/dL (0.55-1.30); GLUCOSE 171 mg/dL (70-99); SODIUM SERUM 129 mmol/L (136-145); UREA NITROGEN, BLOOD 72 mg/dL (8-21)
--- NOTE | 2021-03-15 07:10 | NUR ---
opening note received SBAR from night RN, patient in bed, respirations even, non labored, bed in low and locked position, call light within reach, bed alarm on, ivf's running as ordered, gtube feeding running as ordered,
[2021-03-15] MEDS: LevALBUTEROL HCL 1.25 MG/0.5 ML *CONC.* VIAL.NEB (XOPENEX CONC.) INH SCH ×2 (07:14→15:28)
[2021-03-15 07:36] LABS: POTASSIUM 6.6 mmol/L (3.5-5.1)
[2021-03-15 08:00] VITALS: BP_SYST 148
[2021-03-15 08:37] LABS: TOTAL IRON BIND. CAPACITY 108 ug/dL (250-450)
--- NOTE | 2021-03-15 09:07 | NUR ---
ATTENDING MD DR MADRIGAL WAS PAGED DIRECTLY, RE: K LEVEL IS HIGH AND TO INFORM OF THE FAILURE TO INSERT THE DESAI.
[2021-03-15] MEDS: ASPIRIN 81 MG TAB.CHEW PO SCH (09:12)
[2021-03-15] MEDS: LANSOPRAZOLE 30 MG CAPSULE.DR GT SCH ×2 (09:12→22:01)
[2021-03-15] MEDS: ASCORBIC ACID 500 MG TABLET GT SCH (09:12)
[2021-03-15] MEDS: METOPROLOL TARTRATE 50 MG TABLET GT SCH ×2 (09:13→22:02)
[2021-03-15] MEDS: NACL 0.9% 1,000 ML IV SCH (09:15)
[2021-03-15] MEDS ORDERED: SODIUM POLYSTYRENE SULFONATE 15 GM/60 ML UDBTL GT ONE ×2 (09:45→18:00)
--- NOTE | 2021-03-15 10:04 | NUR ---
CONSULTATION PAGED REASON FOR CONSULTATION:RENAL FAILURE WAS CONSULT CALLED?Y PERSON WHO WAS NOTIFIED:PEEWEE CONSULTING PHYSICIAN:ASHLEIGH CHILDS REAL ESTATE EXECUTIVE ASSISTANT SPECIALTY:NEPHRO REAL ESTATE EXECUTIVE ASSISTANT PHONE NUMBER:[phone] REQUESTING PHYSICIAN:LINWOOD MCGOWAN
--- NOTE | 2021-03-15 10:39 | NUR ---
CONDOM CATH PLACED CONDOM CATHETER ON PATIENT, NO SIGNS OF DISTRESS, BAG DRAINING BY GRAVITY
--- NOTE | 2021-03-15 11:17 | NUR ---
Dietitian Recommendations *Recommend: modify EN formula (Hyperkalemia: 6.6) *Consider: Nepro at 40ml/hr(goal rate), FWF per physician via GT Provides: 1728 kcal, 78gm protein and 698ml free water daily. Meets: 89% of upper end of estimated calorie needs and 120% of estimated protein needs. Please see Nutritional Assessment for details. [facility], RD
[2021-03-15 12:41] VITALS: BP_SYST 150
--- NOTE | 2021-03-15 15:04 | NUR ---
medication spoke with Jairo in the pharmacy, advised to override solumederol and give for 1400 time. explained to him that i was unable to pull from pyxis due to time not showing
[2021-03-15] MEDS ORDERED: methylPREDNISolone SOD SUCC/PF 62.5 MG/ML VIAL ONE (15:13)
[2021-03-15] MEDS ORDERED: SOD FERRIC GLUC COMPLEX/SUC 125 MG in NS 100 ML IV SCH (16:00)
[2021-03-15 16:33] VITALS: BP_SYST 149
--- NOTE | 2021-03-15 17:30 | NUR ---
critical paged dr Zimmerman regarding potassium 6.5,
[2021-03-15] MEDS: RIVAROXABAN 10 MG TABLET GT SCH (17:52)
--- NOTE | 2021-03-15 19:15 | NUR ---
CLOSING NOTE PROVIDED SBAR TO NIGHT RN, PATIENT IN BED, RESPIRATIONS EVEN, NON LABORED, BED IN LOW AND LOCKED POSITION CALL LIGHT WITHIN REACH, BED ALARM ON, IVF'S RUNNING ORDERED, TUBE FEEDING RUNNING ORDERED, CONDOM CATH DRAINING BY GRAVITY. ENDORSED CARE TO NIGHT RN
--- NOTE | 2021-03-15 19:20 | NUR ---
OPENING NOTES PATIENT RESTING, HOB ELEVATED, NO RESPIRATORY DISTRESS NOTED. CALL LIGHT WITHIN REACH, PATIENT UNABLE TO USE CALL LIGHT, WILL CONTINUE TO MONITOR. BED ALARM ON, BED AT LOWEST POSITION, BED LOCKED, SEIZURE PADS ON. GTUBE IN PLACE, 10ML RESIDUAL NOTED. SEIZURE, ASPIRATION, RESPIRATORY, SAFETY, AND FALL PRECAUTIONS IN PLACE. DISCUSSED PLAN OF CARE WITH PATIENT. RECEIVED REPORT THAT DR. JUAREZ WISHES TO PROVIDE KAYEXALATE 15 GM TO PATIENT AT 0100, WILL FOLLOW THROUGH. WILL CONTINUE TO MONITOR.
[2021-03-15] MEDS: ATORVASTATIN 10 MG TABLET GT SCH (21:58)
[2021-03-15] MEDS: TERAZOSIN HCL 1 MG CAPSULE (HYTRIN) GT SCH (22:01)
[2021-03-15] MEDS: LATANOPROST 2.5 ML DROPS (XALATAN) OP SCH (22:04)
[2021-03-16] MEDS: NACL 0.9% 1,000 ML IV SCH ×4 (00:13→22:11)
[2021-03-16] MEDS: INSULIN REGULAR, HUMAN 100 UNITS/ML, 10 ML VIAL (humuLIN R) SUBCUT PRN ×3 (00:18→17:42)
--- NOTE | 2021-03-16 00:48 | NUR ---
RESIDUAL 150 ML FOR GTUBE FEEDING, WILL HOLD FEEDING FOR NOW AND RECHECK IN AN HOUR. NO DISTRESS NOTED. WILL CONTINUE TO MONITOR.
[2021-03-16] MEDS ORDERED: SODIUM POLYSTYRENE SULFONATE 15 GM/60 ML UDBTL GT ONE (01:00)
[2021-03-16] MEDS: LevALBUTEROL HCL 1.25 MG/0.5 ML *CONC.* VIAL.NEB (XOPENEX CONC.) INH SCH ×4 (01:10→22:42)
[2021-03-16 01:13] VITALS: BP_SYST 148
[2021-03-16] MEDS: methylPREDNISolone SOD SUCC/PF 62.5 MG/ML VIAL IVP SCH ×3 (06:06→22:05)
--- NOTE | 2021-03-16 06:22 | NUR ---
CLOSING NOTES PATIENT RESTING, NO SIGNS OF RESPIRATORY DISTRESS NOTED. CALL LIGHT WITHIN REACH, PATIENT DOES NOT DEMONSTRATE PROPER USAGE OF CALL LIGHT, WILL MONITOR, BED ALARM ON, BED AT LOWEST POSITION, BED LOCKED. GTUBE PATENT, TUBE FEEDING RUNNING, 10 ML RESIDUAL NOTED. SEIZURE PADS IN PLACE THROUGHOUT SHIFT, SEIZURE, FALL, SAFETY, RESPIRATORY AND ASPIRATION PRECAUTIONS IN PLACE THROUGHOUT SHIFT. ALL NEEDS MET THROUGHOUT SHIFT. WILL ENDORSE CARE TO ONCOMING SHIFT.
[2021-03-16 07:01] LABS: BASOPHILS % (AUTO) 0.1 % (0.0-2.0); LYMPHOCYTES # (AUTO) 0.6 K/uL (1.0-5.5); LYMPHOCYTES % (AUTO) 7.2 % (20.5-51.5); MEAN CORPUSCULAR HEMOGLOBIN 28 pg (27-31); MEAN CORPUSCULAR HGB CONC 33 % (32-36); MEAN CORPUSCULAR VOLUME 84 fL (79.0-98.0); MONOCYTES # (AUTO) 0.6 K/uL (0.0-1.0); MONOCYTES % (AUTO) 7.1 % (1.7-9.3); NEUTROPHILS # (AUTO) 6.8 K/uL (1.8-7.7); NEUTROPHILS % (AUTO) 85.6 % (40.0-70.0); PLATELET COUNT (AUTO) 440 K/uL (130-430); RED BLOOD CELL COUNT(AUTO) 2.52 MIL/uL (4.2-6.2); RED CELL DISTRIBUTION WIDTH 25.2 % (9.0-15.0)
--- NOTE | 2021-03-16 07:10 | NUR ---
OPENING NOTE RECEIVED SBAR FROM NIGHT RN, PATIENT IN BED, RESPIRATIONS EVEN, NON LABORED, BED IN LOW AND LOCKED POSITION, CALL LIGHT WITHIN REACH, BED ALARM ON. IVF'S RUNNING ORDERED, FEEDING RUNNING ORDERED, CONDOM CATH DRAINING BY GRAVITY
[2021-03-16 07:20] LABS: ANION GAP 16 (5-15); CALCIUM 8.3 mg/dL (8.4-11.0); CHLORIDE 108 mmol/L (98-107); CREATININE 2.77 mg/dL (0.55-1.30); GLUCOSE 170 mg/dL (70-99); POTASSIUM 4.9 mmol/L (3.5-5.1); SODIUM SERUM 140 mmol/L (136-145); UREA NITROGEN, BLOOD 75 mg/dL (8-21)
[2021-03-16 07:47] LABS: HEMATOCRIT 21.2 % (36-54)
[2021-03-16 07:48] LABS: HEMOGLOBIN 6.9 g/dL (14.0-18.0)
--- NOTE | 2021-03-16 07:48 | NUR ---
Attending Elsie SANCHEZ Dr was paged directly, re: critical Hemoglobin and Hematocrit level.
--- NOTE | 2021-03-16 07:49 | NUR ---
CRITICAL LAB PAGED DR MADRIGAL FOR CRITICAL HEMOGLOBIN 6.9 HEMATOCRIT 21.2
[2021-03-16 08:00] VITALS: BP_SYST 148
[2021-03-16 08:06] LABS: FOLATE (FOLIC ACID) 15.2 ng/mL (>3.0)
[2021-03-16] MEDS: ASCORBIC ACID 500 MG TABLET GT SCH (08:22)
[2021-03-16] MEDS: ASPIRIN 81 MG TAB.CHEW PO SCH (08:22)
[2021-03-16] MEDS: LANSOPRAZOLE 30 MG CAPSULE.DR GT SCH ×2 (08:23→22:06)
[2021-03-16] MEDS: amLODIPine BESYLATE 10 MG TABLET GT SCH (08:23)
[2021-03-16] MEDS: METOPROLOL TARTRATE 50 MG TABLET GT SCH ×2 (08:24→22:06)
--- NOTE | 2021-03-16 09:33 | NUR ---
consent called Roscoe Jonas for consent for blood, left message to call back as soon as possible
--- NOTE | 2021-03-16 09:55 | NUR ---
phone consent spoke with patients nephew Roscoe Jonas, informed him that patient is in need of a blood transfusion due to low h/h. answered all questions, nephew verbalized understanding. consent provided, second nurse spoke with Mr. Jonas and obtained consent.
--- NOTE | 2021-03-16 10:30 | NUR ---
nurse note condom cath fell off. patient incontinent of bowel and bladder, provided gaurav care, gave bed bath, changed linens, replaced condom catheter, repositioned patient. no distress noted changed gloves, hand hygiene, new gloves provided oral care, no signs of distress noted
[2021-03-16 12:05] VITALS: BP_SYST 151
--- NOTE | 2021-03-16 13:45 | NUR ---
BT INITIATION: Consent signed agreeing to administration of blood. Blood has been type and crossmatched. Blood sent from blood bank. Information on unit of blood checked against patient wristband at bedside by two nurses. All information matches. Patient or responsible libertarian informed of potential complications associated with blood transfusion. Informed of possible transfusion reaction symptoms. Aware of need to notify nurse at once of itching, shortness of breath, flushing, feeling of impending doom, or other symptoms not previously present. Vital signs taken within 5 minutes prior to initiation of transfusion. RN will remain with patient for first 15 minutes of transfusion at which time vital signs will be re-assessed.
--- NOTE | 2021-03-16 14:10 | NUR ---
nurse note obtained vs, increased rate of blood transfusion to 125ml/hr. no signs of distress noted, hung new gtube feeding. flushed gtube freely, attached to pump running as directed
--- NOTE | 2021-03-16 16:15 | NUR ---
NURSE NOTE BLOOD TRANSFUSION COMPLETE, OBTAINED VS, NO SIGNS OF DISTRESS NOTED
--- NOTE | 2021-03-16 16:25 | NUR ---
BT INITIATION: Consent signed agreeing to administration of blood. Blood has been type and crossmatched. Blood sent from blood bank. Information on unit of blood checked against patient wristband at bedside by two nurses. All information matches. Patient or responsible green party informed of potential complications associated with blood transfusion. Informed of possible transfusion reaction symptoms. Aware of need to notify nurse at once of itching, shortness of breath, flushing, feeling of impending doom, or other symptoms not previously present. Vital signs taken within 5 minutes prior to initiation of transfusion. RN will remain with patient for first 15 minutes of transfusion at which time vital signs will be re-assessed.
--- NOTE | 2021-03-16 16:45 | NUR ---
nurse note obtained vs, patient in bed respirations even, non labored, bed in low and locked position call light iwthin reach, bed alarm on,2l o2 nasal canula. no signs of distress. increased rate of transfusion to 125 m/hr.
[2021-03-16] MEDS: RIVAROXABAN 10 MG TABLET GT SCH (17:39)
[2021-03-16 18:00] VITALS: BP_SYST 145
--- NOTE | 2021-03-16 18:40 | NUR ---
nurse note blood transfusion complete, no signs of distress noted. obtained vs. respirations even, non labored, bed in low and locked position, call light within reach, bed alarm on, O2 nasal canula
--- NOTE | 2021-03-16 19:27 | NUR ---
CLOSING NOTE PROVIDED SBAR TO NIGHT RN, PATIENT IN BED, RESPIRATIONS EVEN, NON LABORED, BED IN LOW AND LOCKED POSITION CALL LIGHT WITHIN REACH, BED ALARM ON. IVF'S RUNNING ORDERED, GTUBE RUNNING ORDERED, CONDOM CATH ATTACHED AND DRAINING BY GRAVITY. ENDORSED CARE TO NIGHT RN
--- NOTE | 2021-03-16 19:30 | NUR ---
OPENING NOTES: Received report from dayshift nurse. Patient is laying in bed with no s/s of distress or discomfort. PICC line noted on SELENA with dry and intact dressing. Condom cath noted, draining to gravity. Patient is 2L NC tolerating well. Ensured all safety precautions. Bed is locked and in the lowest position, call light within reach.
[2021-03-16 20:23] VITALS: BP_SYST 152
[2021-03-16] MEDS: ATORVASTATIN 10 MG TABLET GT SCH (22:06)
[2021-03-16] MEDS: TAMSULOSIN HCL 0.4 MG CAP PO SCH (22:06)
[2021-03-16] MEDS: LATANOPROST 2.5 ML DROPS (XALATAN) OP SCH (22:09)
[2021-03-16] MEDS: SOD FERRIC GLUC COMPLEX/SUC 125 MG in NS 100 ML IV SCH (22:10)
[2021-03-16] MEDS: TERAZOSIN HCL 1 MG CAPSULE (HYTRIN) GT SCH (22:14)
--- NOTE | 2021-03-16 22:40 | NUR ---
RAPID RESPONSE CALLED UPON GIVING MEDICATIONS NOTICED PATIENT WAS BLEEDING FROM LEFT NOSTRIL AND MOUTH. UPON SUCTIONING THERE WERE LARGE CLOTS AND PATIENT'S O2 WAS AT 71% ON 2L NC AND HE WAS EXHIBITING DIFFICULTY BREATHING. I CALLED RAPID RESPONSE. AFTER SEVERAL ATTEMPTS TO SUCTION, LARGE CLOTS WERE EXTRACTED VIA MOUTH. RT WAS PRESENT AND SUCTIONED PATIENT AFTER ME. THERE WAS ABOUT [address] CC[address] CUELLO WAS NOTIFIED. PER DR. CUELLO, [facility] AND HAVE RT PUT PATIENT ON O2 VIA MASK ALSO WILL ORDER ENT CONSULT AND STOP XERALTO. PATIENT IS NOW IN STABLE CONDITION AND O2 IS 100% VIA VENTI MASK @ 35%. WILL CONTINUE TO MONITOR PATIENT.
[2021-03-17 00:15] VITALS: BP_SYST 137
[2021-03-17] MEDS: LevALBUTEROL HCL 1.25 MG/0.5 ML *CONC.* VIAL.NEB (XOPENEX CONC.) INH PRN (03:55)
--- NOTE | 2021-03-17 04:21 | NUR ---
PATIENT IS BLEEDING ONCE MORE PROVIDED SUCTION, PT TOLERATED WELL. HE IS IN STABLE CONDITION. WILL CONTINUE TO MONITOR.
--- NOTE | 2021-03-17 05:13 | NUR ---
PICC LINE DRESSING DONE USING STERILE TECHNIQUE, PT TOLERATED WELL
[2021-03-17] MEDS: NACL 0.9% 1,000 ML IV SCH ×2 (05:25→16:49)
[2021-03-17] MEDS: methylPREDNISolone SOD SUCC/PF 62.5 MG/ML VIAL IVP SCH ×3 (05:25→22:39)
[2021-03-17] MEDS: INSULIN REGULAR, HUMAN 100 UNITS/ML, 10 ML VIAL (humuLIN R) SUBCUT PRN ×2 (05:36→17:09)
[2021-03-17 06:50] LABS: ALANINE AMINOTRANSFERASE 11 U/L (12-78); ANION GAP 14 (5-15); ASPARTATE AMINOTRANSFERASE 19 U/L (10-37); CALCIUM 7.5 mg/dL (8.4-11.0); CHLORIDE 113 mmol/L (98-107); CREATININE 2.23 mg/dL (0.55-1.30); GLUCOSE 162 mg/dL (70-99); POTASSIUM 3.5 mmol/L (3.5-5.1); SODIUM SERUM 147 mmol/L (136-145); TOTAL BILIRUBIN 0.1 mg/dL (0.0-1.0); UREA NITROGEN, BLOOD 70 mg/dL (8-21)
--- NOTE | 2021-03-17 06:55 | NUR ---
CONSULTATION PAGED/CALLED Reason for Consultation: [] LEFT NOSTRIL BLEED Person Who was Notified: [] LEFT A VOICE MESSAGE ON HIS CELL PHONE Consulting Physician: [] DR MIRELES Civil Engineering Assistant Specialty: [] ENT Ordering Physician: [] DR KAITLIN MIRELES IS NOT TILE FITTER FOR THIS WEEKEND. DR CERVANTES IS TILE FITTER FOR HIS EXISTING PATIENTS, AND DR CERVANTES DOES NOT ACCEPT MEDICARE/MEDICAL INSURANCE -- STRICTLY HCP/ALEX ONLY
[2021-03-17] MEDS: LevALBUTEROL HCL 1.25 MG/0.5 ML *CONC.* VIAL.NEB (XOPENEX CONC.) INH SCH ×3 (07:00→23:20)
[2021-03-17 07:42] LABS: BASOPHILS % (AUTO) 0.1 % (0.0-2.0); EOSINOPHILS % (AUTO) 0.1 % (0.0-4.0); HEMATOCRIT 27.7 % (36-54); LYMPHOCYTES # (AUTO) 0.6 K/uL (1.0-5.5); LYMPHOCYTES % (AUTO) 11.1 % (20.5-51.5); MEAN CORPUSCULAR HEMOGLOBIN 28 pg (27-31); MEAN CORPUSCULAR HGB CONC 33 % (32-36); MEAN CORPUSCULAR VOLUME 85 fL (79.0-98.0); MONOCYTES # (AUTO) 0.6 K/uL (0.0-1.0); NEUTROPHILS # (AUTO) 4.1 K/uL (1.8-7.7); NEUTROPHILS % (AUTO) 76.7 % (40.0-70.0); PLATELET COUNT (AUTO) 394 K/uL (130-430); RED BLOOD CELL COUNT(AUTO) 3.26 MIL/uL (4.2-6.2); RED CELL DISTRIBUTION WIDTH 22.5 % (9.0-15.0)
[2021-03-17 07:44] LABS: WHITE BLOOD COUNT (AUTO) 5.3 K/uL (4.8-10.8)
--- NOTE | 2021-03-17 08:00 | NUR ---
OPENING NOTES: PATIENT RESTING IN BED. NO SIGNS OF ACUTE DISTRESS NOTED. IV AND G TUBE PATENT AND INFUSING WELL. FALL AND SAFETY PRECAUTION REINFORCED. BED LOCKED, ALARM ON AN DIN LOWEST POSITION.
[2021-03-17 08:19] VITALS: BP_SYST 142
[2021-03-17 08:20] VITALS: BP_SYST 142
[2021-03-17] MEDS: OXYMETAZOLINE HCL 0.05% NASAL SPRAY NS SCH ×4 (08:40→20:17)
[2021-03-17] MEDS: amLODIPine BESYLATE 10 MG TABLET GT SCH (08:48)
[2021-03-17] MEDS: ASCORBIC ACID 500 MG TABLET GT SCH (08:49)
[2021-03-17] MEDS: TAMSULOSIN HCL 0.4 MG CAP PO SCH ×2 (08:49→20:14)
[2021-03-17] MEDS: METOPROLOL TARTRATE 50 MG TABLET GT SCH ×2 (08:49→20:16)
[2021-03-17] MEDS: LANSOPRAZOLE 30 MG CAPSULE.DR GT SCH ×2 (08:49→20:16)
[2021-03-17] MEDS: ASPIRIN 81 MG TAB.CHEW PO SCH (08:49)
--- NOTE | 2021-03-17 13:06 | NUR ---
NUTRITION F/U Medical History Comment: Pt w/: Acute Exacerbation of COPD, Dehydration, Acute Renal Failure, Severe Malnutrition, Anemia, DM per MD notes. PMH: DM, COPD, HTN, Stroke. PSH: GT placement. Subjective Information: SLOWLY IMPROVING RENAL FUNCTION per MD notes. Per MD assessment ACUTE EXACERBATION OF COPD, SEVERE IRON DEFICIENCY ANEMIA, ACUTE RENAL FAILURE, DEHYDRATION, REDUCE IVF. Per pts nurse, the pt was bleeding from L nostril yesterday and was exhibiting difficulty breathing. Pt is now on venturi mask. Per pts primary RN, GRV= 0 mL, Glucerna 1,2 runing at goal rate. Pt tolerating current EN regimen. Current Diet Order/Nutrition Support: Glucerna 1.2 at 60ml/hr, FWF 65ml via GT Pertinent Medications: Lipitor,Zinc, VIT C, Solu-medrol, Dulcolax, insulin PRN, Lopressor, ferric sodium 110 mL/hr, reglan Pertinent Labs: 03/17: H/H: 06/18/, Cl: 113H, C)2: 20L, BUN: 70H, Create:2.23H, glucose: 162H, POC glucose: 161H, *K WNL 03/15 Na 129L, K 6.6H, BG 172H, POC BG 153H, BUN 72H, Cre 3.04H SARS-CoV-2 Ag Rapid 03/18 Negative Height: 5 feet 6.00 inches Weight: 183 pounds Weight: (03/17): 87.26 kg, 192 lbs, (03/15) 83.007 kg Body Mass Index: (03/17): 31 kg/m2, (03/15) 29.53 kg/m2 [place]/Adjusted Body Weight: 142#/ 64.5 kg Weight Status: Overweight Gastrointestinal Symptoms: Skin Integrity Comment: Michael scale: 13. Per RN notes,lateral right hip scar, distal L medial leg scar, sacrum scar, lateral l foot wound Edema: non-pitting bilateral lower extremity Current % PO: N/A, on EN support. Estimated Energy Expenditure (kcals/day) 9694-5125 (25-30 kcal/kg IBW for maintenance) Estimated Protein Required (g/day) 65gm (1gm/kg IBW for maintenance) Estimated Fluid Required (l/day) 500-1000 mL + urine output or per MD due to ARF Problem/Etiology/Signs/Symptoms Altered nutrition related labs r/t endocrine and renal dysfunction, ARF AEB elevated BG, BUN/Cre labs. (ongoing) Expected Outcomes/Goals Monitor EN support and intake w/ goal of pt meeting more than 75% of estimated nutritional needs, labs trending WNL, normal GI function, skin integrity/wt maintenance. Dietitian Recommendations *Consider: Nepro at 40ml/hr(goal rate), FWF per physician via GT Provides: 1728 kcal, 78gm protein and 698ml free water daily. Meets: 89% of upper end of estimated calorie needs and 120% of estimated protein needs. Follow Up High Risk: F/U in 2-3days EUGENE TORRES
--- NOTE | 2021-03-17 13:11 | NUR ---
Dietitian Recommendations *Consider: Nepro at 40ml/hr(goal rate), FWF per physician via GT Provides: 1728 kcal, 78gm protein and 698ml free water daily. Meets: 89% of upper end of estimated calorie needs and 120% of estimated protein needs. KW, RD
[2021-03-17 13:35] VITALS: BP_SYST 150
[2021-03-17 15:44] VITALS: BP_SYST 149
--- NOTE | 2021-03-17 18:44 | NUR ---
CLOSING NOTES: PATIENT RESTING IN BED. BREATHING EVEN AND NON LABORED TO O2 AT 6L/ VENTURI MASK, FIO2 28%. CONDOM CATHETER IN PLACED AND DRAINING BY GRAVITY. IV AND G TUBE INFUSING WELL. BED LOCKED, ALARM ON AND IN LOWEST POSITION.
--- NOTE | 2021-03-17 19:16 | NUR ---
OPENING NOTES: Received report from daysmdft nurse. Patient laying in bed in stable condition. He is on Venturi Mask at 6L with 28% FIO2. Harris catheter draining to gravity. PICC line noted with dry and intact dressing and appears to be infusing well. Ensured all safety precautions. Bed is locked and in the lowest position with alarm on and call light within reach.
[2021-03-17] MEDS: ATORVASTATIN 10 MG TABLET GT SCH (20:14)
[2021-03-17] MEDS: LATANOPROST 2.5 ML DROPS (XALATAN) OP SCH (20:16)
[2021-03-17 20:20] VITALS: BP_SYST 160
[2021-03-17] MEDS: TERAZOSIN HCL 1 MG CAPSULE (HYTRIN) GT SCH (20:20)
[2021-03-17] MEDS: SOD FERRIC GLUC COMPLEX/SUC 125 MG in NS 100 ML IV SCH (22:40)
[2021-03-18] MEDS: OXYMETAZOLINE HCL 0.05% NASAL SPRAY NS SCH ×6 (00:16→20:11)
[2021-03-18 00:25] VITALS: BP_SYST 155
[2021-03-18] MEDS: methylPREDNISolone SOD SUCC/PF 62.5 MG/ML VIAL IVP SCH ×3 (05:08→23:14)
[2021-03-18] MEDS: INSULIN REGULAR, HUMAN 100 UNITS/ML, 10 ML VIAL (humuLIN R) SUBCUT PRN ×3 (05:16→23:26)
[2021-03-18] MEDS: LevALBUTEROL HCL 1.25 MG/0.5 ML *CONC.* VIAL.NEB (XOPENEX CONC.) INH PRN (05:21)
[2021-03-18 06:28] LABS: BASOPHILS % (AUTO) 0.2 % (0.0-2.0); HEMATOCRIT 28.2 % (36-54); HEMOGLOBIN 9.4 g/dL (14.0-18.0); LYMPHOCYTES # (AUTO) 1.2 K/uL (1.0-5.5); LYMPHOCYTES % (AUTO) 18.3 % (20.5-51.5); MEAN CORPUSCULAR HEMOGLOBIN 28 pg (27-31); MEAN CORPUSCULAR HGB CONC 33 % (32-36); MEAN CORPUSCULAR VOLUME 85 fL (79.0-98.0); MONOCYTES # (AUTO) 0.7 K/uL (0.0-1.0); MONOCYTES % (AUTO) 11.6 % (1.7-9.3); NEUTROPHILS # (AUTO) 4.5 K/uL (1.8-7.7); NEUTROPHILS % (AUTO) 69.9 % (40.0-70.0); PLATELET COUNT (AUTO) 392 K/uL (130-430); RED BLOOD CELL COUNT(AUTO) 3.31 MIL/uL (4.2-6.2); RED CELL DISTRIBUTION WIDTH 22.3 % (9.0-15.0); WHITE BLOOD COUNT (AUTO) 6.4 K/uL (4.8-10.8)
--- NOTE | 2021-03-18 06:43 | NUR ---
CLOSING NOTES: Patient laying in bed in stable condition. He is on Venturi Mask at 6L with 28% FIO2. Harris catheter draining to gravity. PICC line with dry and intact dressing and is infusing well. The patient did not have any evidence of nostril bleeding throughout shift and was suctioned as needed. Ensured all safety precautions. Bed is locked and in the lowest position with alarm on and call light within reach. All needs were met throughout shift. Will endorse to dayshift nurse.
[2021-03-18] MEDS: LevALBUTEROL HCL 1.25 MG/0.5 ML *CONC.* VIAL.NEB (XOPENEX CONC.) INH SCH ×3 (07:00→23:29)
[2021-03-18 07:20] LABS: ALANINE AMINOTRANSFERASE 17 U/L (12-78); ALBUMIN 2.1 g/dL (3.4-4.8); ANION GAP 15 (5-15); ASPARTATE AMINOTRANSFERASE 18 U/L (10-37); CALCIUM 7.6 mg/dL (8.4-11.0); CHLORIDE 116 mmol/L (98-107); CREATININE 2.09 mg/dL (0.55-1.30); GLUCOSE 177 mg/dL (70-99); SODIUM SERUM 152 mmol/L (136-145); TOTAL BILIRUBIN 0.2 mg/dL (0.0-1.0); UREA NITROGEN, BLOOD 74 mg/dL (8-21)
[2021-03-18 08:00] VITALS: BP_SYST 159
--- NOTE | 2021-03-18 08:00 | NUR ---
Patient laying in bed in stable condition. He is on Venturi Mask at 6L with 28% FIO2. Vitals WNL. Harris catheter draining to gravity, condom cath out of position. PICC line noted with dry and intact dressing and appears to be infusing well. Ensured all safety precautions. Bed is locked and in the lowest position with alarm on and call light within reach.
[2021-03-18] MEDS: NACL 0.9% 1,000 ML IV SCH (08:45)
[2021-03-18] MEDS: ASPIRIN 81 MG TAB.CHEW PO SCH (08:46)
[2021-03-18] MEDS: LANSOPRAZOLE 30 MG CAPSULE.DR GT SCH ×2 (08:46→20:09)
[2021-03-18] MEDS: ASCORBIC ACID 500 MG TABLET GT SCH (08:46)
[2021-03-18] MEDS: TAMSULOSIN HCL 0.4 MG CAP PO SCH ×2 (08:46→20:09)
[2021-03-18] MEDS: amLODIPine BESYLATE 10 MG TABLET GT SCH (08:47)
[2021-03-18] MEDS: METOPROLOL TARTRATE 50 MG TABLET GT SCH ×2 (08:47→20:10)
[2021-03-18] MEDS ORDERED: POTASSIUM CHLORIDE 20 MEQ/PKT PACKET GT ONE (09:00)
--- NOTE | 2021-03-18 11:04 | NUR ---
ATTEMPTED TO PLACE CONDOM CATHETER ON PATIENT TWICE, BUT THEY WOULD NOT STAY IN PLACE.
[2021-03-18 12:00] VITALS: BP_SYST 157
--- NOTE | 2021-03-18 15:22 | NUR ---
REMOVED PATIENT OXYGEN TO SEE IF HE CAN TOLERATE ROOM AIR PER DR MADRIGAL REQUEST.
[2021-03-18 17:26] VITALS: BP_SYST 142
--- NOTE | 2021-03-18 18:45 | NUR ---
Patient laying in bed in stable condition. Patient on room air breathing even and unlabored no sign of distress. PICC line with dry and intact dressing and is infusing well. The patient did not have any evidence of nostril bleeding throughout shift and was suctioned as needed. Ensured all safety precautions. Bed is locked and in the lowest position with alarm on and call light within reach. All needs were met throughout shift. Will endorse to next shift
--- NOTE | 2021-03-18 19:55 | NUR ---
CLOSING NOTE PATIENT IS STABLE AND LAYING IN BED. NO S/S OF RESPIRATORY DISTRESS NOTED. CALL LIGHT IN REACH. PATIENT UNSUCCESSFULLY DEMONSTRATES USAGE OF CALL LIGHT. BED IS LOCKED, ALARMED, AND AT THE LOWEST POSITION. FALL, SAFETY, ASPIRATION, AND RESPIRATORY PRECAUTIONS WILL BE IN PLACE THROUGHOUT THE SHIFT. PLAN OF CARE IS DISCUSSED WITH PATIENT. Addendum: 03/19/21 at 0627 by Shante Salguero RN OPENING NOTE*
[2021-03-18] MEDS: TERAZOSIN HCL 1 MG CAPSULE (HYTRIN) GT SCH (20:09)
[2021-03-18] MEDS: ATORVASTATIN 10 MG TABLET GT SCH (20:09)
[2021-03-18] MEDS: LATANOPROST 2.5 ML DROPS (XALATAN) OP SCH (20:11)
[2021-03-18] MEDS: SOD FERRIC GLUC COMPLEX/SUC 125 MG in NS 100 ML IV SCH (23:16)
[2021-03-19 00:05] VITALS: BP_SYST 149
[2021-03-19] MEDS: OXYMETAZOLINE HCL 0.05% NASAL SPRAY NS SCH ×6 (00:48→21:42)
[2021-03-19] MEDS: methylPREDNISolone SOD SUCC/PF 62.5 MG/ML VIAL IVP SCH ×3 (05:06→21:42)
[2021-03-19] MEDS: INSULIN REGULAR, HUMAN 100 UNITS/ML, 10 ML VIAL (humuLIN R) SUBCUT PRN ×2 (05:07→18:02)
--- NOTE | 2021-03-19 06:26 | NUR ---
CLOSING NOTE PATIENT IS STABLE AND LAYING IN BED. NO S/S OF RESPIRATORY DISTRESS NOTED. CALL LIGHT IN REACH. BED IS LOCKED, ALARMED, AND AT THE LOWEST POSITION. FALL, SAFETY, ASPIRATION, AND RESPIRATORY PRECAUTIONS WILL BE IN PLACE THROUGHOUT THE SHIFT. WILL CONTINUE TO MONITOR UNTIL SBAR REPORT IS ENDORSED TO AM NURSE.
[2021-03-19] MEDS: LevALBUTEROL HCL 1.25 MG/0.5 ML *CONC.* VIAL.NEB (XOPENEX CONC.) INH SCH ×3 (07:07→23:06)
[2021-03-19 07:25] LABS: ANION GAP 14 (5-15); CALCIUM 7.7 mg/dL (8.4-11.0); CHLORIDE 119 mmol/L (98-107); CREATININE 1.87 mg/dL (0.55-1.30); GLUCOSE 165 mg/dL (70-99); SODIUM SERUM 156 mmol/L (136-145); UREA NITROGEN, BLOOD 77 mg/dL (8-21)
--- NOTE | 2021-03-19 07:40 | NUR ---
OPENING NOTES AWAKE IN BED, UNABLE TO ANSWER ORIENTATION QUESTIONS. NO SIGN OF SHORTNESS OF BREATH ON ROOM AIR. NO SIGN OF PAIN. TUBE FEEDING FLOWING WELL. PICC LINE ON LEFT UPPER ARM INTACT. IV ON LEFT CHEST IN PLACE. CONDOM CATHETER IN PLACE BUT NOT HOLDING WELL. ORAL CARE DONE. SUCTIONS SECRETIONS. REPOSITIONED. FALL AND SAFETY CHECKS DONE. ASPIRATION PRECAUTIONS IN PLACE. PATIENT UNABLE TO USE CALL LIGHT. WILL CLOSELY MONITOR.
[2021-03-19 08:00] VITALS: BP_SYST 159
[2021-03-19] MEDS: ASPIRIN 81 MG TAB.CHEW PO SCH (08:23)
[2021-03-19] MEDS: LANSOPRAZOLE 30 MG CAPSULE.DR GT SCH ×2 (08:23→21:44)
[2021-03-19] MEDS: ASCORBIC ACID 500 MG TABLET GT SCH (08:23)
[2021-03-19] MEDS: TAMSULOSIN HCL 0.4 MG CAP PO SCH ×2 (08:23→21:44)
[2021-03-19] MEDS: amLODIPine BESYLATE 10 MG TABLET GT SCH (08:24)
[2021-03-19] MEDS: METOPROLOL TARTRATE 50 MG TABLET GT SCH ×2 (08:25→21:45)
[2021-03-19 12:41] VITALS: BP_SYST 147
[2021-03-19] MEDS ORDERED: POTASSIUM CHLORIDE 20 MEQ/PKT PACKET GT ONE (13:45)
[2021-03-19 15:33] VITALS: BP_SYST 151
[2021-03-19] MEDS: D5W 1,000 ML IV SCH (18:18)
--- NOTE | 2021-03-19 19:30 | NUR ---
OPENING NOTES PATIENT RESTING, HOB ELEVATED, NO RESPIRATORY DISTRESS NOTED. CALL LIGHT WITHIN REACH, PATIENT UNABLE TO USE CALL LIGHT, WILL CONTINUE TO MONITOR. BED ALARM ON, BED AT LOWEST POSITION, BED LOCKED, SEIZURE PADS ON. GTUBE IN PLACE, 0ML RESIDUAL NOTED. SEIZURE, ASPIRATION, RESPIRATORY, SAFETY, AND FALL PRECAUTIONS IN PLACE. DISCUSSED PLAN OF CARE WITH PATIENT. WILL CONTINUE TO MONITOR.
[2021-03-19] MEDS: ATORVASTATIN 10 MG TABLET GT SCH (21:44)
[2021-03-19] MEDS: TERAZOSIN HCL 1 MG CAPSULE (HYTRIN) GT SCH (21:45)
[2021-03-19] MEDS: LATANOPROST 2.5 ML DROPS (XALATAN) OP SCH (21:45)
[2021-03-20] VITALS: BP_SYST 143
[2021-03-20] MEDS: SOD FERRIC GLUC COMPLEX/SUC 125 MG in NS 100 ML IV SCH (00:24)
[2021-03-20] MEDS: INSULIN REGULAR, HUMAN 100 UNITS/ML, 10 ML VIAL (humuLIN R) SUBCUT PRN ×2 (00:33→12:23)
[2021-03-20] MEDS: OXYMETAZOLINE HCL 0.05% NASAL SPRAY NS SCH ×6 (00:38→21:46)
[2021-03-20] MEDS: D5W 1,000 ML IV SCH ×2 (04:51→17:21)
[2021-03-20] MEDS: methylPREDNISolone SOD SUCC/PF 62.5 MG/ML VIAL IVP SCH ×3 (06:16→22:06)
[2021-03-20 06:52] LABS: ALANINE AMINOTRANSFERASE 21 U/L (12-78); ALBUMIN 2.3 g/dL (3.4-4.8); ANION GAP 14 (5-15); ASPARTATE AMINOTRANSFERASE 24 U/L (10-37); CALCIUM 8.1 mg/dL (8.4-11.0); CREATININE 1.83 mg/dL (0.55-1.30); GLUCOSE 151 mg/dL (70-99); POTASSIUM 3.2 mmol/L (3.5-5.1); SODIUM SERUM 158 mmol/L (136-145); TOTAL BILIRUBIN 0.2 mg/dL (0.0-1.0); UREA NITROGEN, BLOOD 77 mg/dL (8-21)
[2021-03-20 07:34] LABS: CHLORIDE 120 mmol/L (98-107)
[2021-03-20] MEDS: LevALBUTEROL HCL 1.25 MG/0.5 ML *CONC.* VIAL.NEB (XOPENEX CONC.) INH SCH ×3 (07:53→23:10)
--- NOTE | 2021-03-20 08:00 | NUR ---
OPENING NOTES AWAKE IN BED, UNABLE TO ANSWER ORIENTATION QUESTIONS. NO SIGN OF SHORTNESS OF BREATH ON ROOM AIR. NO SIGN OF PAIN. TUBE FEEDING FLOWING WELL. PICC LINE ON LEFT UPPER ARM INTACT. IV ON LEFT CHEST IN PLACE. ORAL CARE DONE. SUCTIONS SECRETIONS. REPOSITIONED. FALL AND SAFETY CHECKS DONE. ASPIRATION PRECAUTIONS IN PLACE. PATIENT UNABLE TO USE CALL LIGHT. WILL CLOSELY MONITOR.
[2021-03-20 08:02] LABS: BASOPHILS % (AUTO) 0.2 % (0.0-2.0); HEMATOCRIT 31.9 % (36-54); HEMOGLOBIN 10.2 g/dL (14.0-18.0); LYMPHOCYTES # (AUTO) 0.9 K/uL (1.0-5.5); LYMPHOCYTES % (AUTO) 14.5 % (20.5-51.5); MEAN CORPUSCULAR HEMOGLOBIN 27 pg (27-31); MEAN CORPUSCULAR HGB CONC 32 % (32-36); MEAN CORPUSCULAR VOLUME 86 fL (79.0-98.0); MONOCYTES # (AUTO) 0.6 K/uL (0.0-1.0); MONOCYTES % (AUTO) 9.1 % (1.7-9.3); NEUTROPHILS # (AUTO) 4.9 K/uL (1.8-7.7); NEUTROPHILS % (AUTO) 76.2 % (40.0-70.0); PLATELET COUNT (AUTO) 371 K/uL (130-430); RED BLOOD CELL COUNT(AUTO) 3.73 MIL/uL (4.2-6.2); RED CELL DISTRIBUTION WIDTH 22.7 % (9.0-15.0); WHITE BLOOD COUNT (AUTO) 6.4 K/uL (4.8-10.8)
[2021-03-20] MEDS: LANSOPRAZOLE 30 MG CAPSULE.DR GT SCH ×2 (09:02→21:43)
[2021-03-20] MEDS: amLODIPine BESYLATE 10 MG TABLET GT SCH (09:02)
[2021-03-20] MEDS: ASPIRIN 81 MG TAB.CHEW PO SCH (09:02)
[2021-03-20] MEDS: ASCORBIC ACID 500 MG TABLET GT SCH (09:02)
[2021-03-20] MEDS: TAMSULOSIN HCL 0.4 MG CAP PO SCH ×2 (09:02→21:43)
[2021-03-20] MEDS: METOPROLOL TARTRATE 50 MG TABLET GT SCH ×2 (09:03→21:03)
--- NOTE | 2021-03-20 11:00 | NUR ---
WOUND CARE DONE WOUND CARE DONE. PATIENT TOLERATED PROCEDURE WELL. FALL AND SAFETY CHECKS DONE. WILL MONITOR.
[2021-03-20 11:35] VITALS: BP_SYST 151
--- NOTE | 2021-03-20 13:10 | NUR ---
Nutrition F/U Admitting Diagnosis: Hyperkalemia and Severe dehydration Medical History Comment: Pt w/: Acute Exacerbation of COPD, Dehydration, Acute Renal Failure, Severe Malnutrition, Anemia, DM per MD notes. PMH: DM, COPD, HTN, Stroke. PSH: GT placement. SRS-CoV-2 Ag Rapid 03/18 Negative Subjective Information: Pt was seen by 2 nursing staff at bedside, providing care. Per EMR review, pt had an episode of SOB and bleeding in the left nostril on 03/16, and was then placed on ventimask. Abdomen is soft and nondistended w/ active bowel sounds, last BM 03/19 x1. Todays labs showed elevated Na and nephrology ordered for pt to be on D5%W. Michael scale: 13. Per bed huddle discussion, pt is now on NC. Pt w/ elevated Na, and K was also elevated during last RD visit. Pt may benefit from modifying EN formula. Pt may benefit from a more renal friendly formula. Current Diet Order/Nutrition Support: Glucerna 1.2 at 35ml/hr, FWF 210ml Q6H via GT x 2 days Pertinent Medications: Lipitor, Zinc, VIT C, Solu-medrol, SSI, Dulcolax, Reglan Pertinent Labs: 03/20 Na 158H, K 3.2L, BG 151H, POC BG 137H, BUN 77H, Cre 1.83H Height: 5 feet, 6.00 inches Weight: 183 pounds/ 83.516721 kilograms; New Weight: 195#/88.59kg (03/19) Body Mass Index: 29.53 kg/m2; NEw BMI: 31.5 kg/m2(03/19) Rock/Adjusted Body Weight: 142#/ 64.5 kg Estimated Energy Expenditure (kcals/day) 3144-6230 (25-30 kcal/kg IBW for maintenance) Estimated Protein Required (g/day) 65gm (1gm/kg IBW for Renal Dz predialysis) Estimated Fluid Required (l/day) per MD (Renal failure) Problem/Etiology/Signs/Symptoms Altered nutrition related labs r/t endocrine and renal dysfunction AEB elevated BG, BUN, SCre labs. (*ongoing) Inadequate protein-calorie intake r/t current EN infusion rate AEB EN intake meets <75% of estimated needs (*new) Expected Outcomes/Goals Monitor EN tolerance and intake w/ goal of pt meeting more than 75% of estimated nutritional needs, labs trending WNL, normal GI function, skin integrity/wt maintenance.c Dietitian Recommendations *Recommend: modify EN formula (Elevated Na: 158H) *Consider: Nepro at 40ml/hr(goal rate), FWF per physician via GT Provides: 1728 kcal, 78gm protein and 698ml free water daily. Meets: 89% of upper end of estimated calorie needs and 120% of estimated protein needs. Follow Up High Risk: F/U in 2-3days
--- NOTE | 2021-03-20 13:18 | NUR ---
Dietitian Recommendations *Recommend: modify EN formula (Elevated Na: 158H) *Consider: Nepro at 40ml/hr(goal rate), FWF per physician via GT Provides: 1728 kcal, 78gm protein and 698ml free water daily. Meets: 89% of upper end of estimated calorie needs and 120% of estimated protein needs. Pleas see nutrition f/u note for details. JAIL, RD
[2021-03-20 13:30] VITALS: BP_SYST 151
[2021-03-20 15:39] VITALS: BP_SYST 157
[2021-03-20] MEDS ORDERED: POTASSIUM CHLORIDE 20 MEQ in NS 250 ML IV ONE (17:00)
[2021-03-20] MEDS ORDERED: KCL 20 mEq in 100 mL (PREMIX) 100 ML IV ONE (17:15)
[2021-03-20 20:22] VITALS: BP_SYST 155
[2021-03-20] MEDS: ATORVASTATIN 10 MG TABLET GT SCH (20:59)
[2021-03-20] MEDS: TERAZOSIN HCL 1 MG CAPSULE (HYTRIN) GT SCH (21:01)
[2021-03-20] MEDS: LATANOPROST 2.5 ML DROPS (XALATAN) OP SCH (21:49)
[2021-03-21] MEDS: SOD FERRIC GLUC COMPLEX/SUC 125 MG in NS 100 ML IV SCH ×2 (00:21→23:37)
[2021-03-21] MEDS: OXYMETAZOLINE HCL 0.05% NASAL SPRAY NS SCH ×7 (00:22→23:39)
[2021-03-21] MEDS: INSULIN REGULAR, HUMAN 100 UNITS/ML, 10 ML VIAL (humuLIN R) SUBCUT PRN ×4 (00:30→23:48)
[2021-03-21 01:38] VITALS: BP_SYST 125
[2021-03-21] MEDS: D5W 1,000 ML IV SCH ×4 (02:10→23:51)
--- NOTE | 2021-03-21 03:00 | NUR ---
TRANSFER OF CARE RECEIVED SBAR REPORT FROM RED DOWNING. PATIENT IS RESTING IN HIS BED. NO SIGNS OF ACUTE DISTRESS NOTED. CALL LIGHT WITHIN REACH. BED ALARM IS ON. BED IS LOCKED AND PLACED IN THE LOWEST POSITION. SAFETY, FALL, AND ASPIRATION PRECAUTIONS IN PLACED. WILL CONTINUE TO MONITOR.
--- NOTE | 2021-03-21 03:16 | NUR ---
I GAVE REPORT TO RECEIVING NURSE PTS VSS , NO PAIN GTF INFUSING WELL NO RESIDUAL ,
[2021-03-21] MEDS: methylPREDNISolone SOD SUCC/PF 62.5 MG/ML VIAL IVP SCH ×3 (05:28→21:20)
[2021-03-21 06:30] LABS: HEMATOCRIT 31.9 % (36-54); HEMOGLOBIN 10.4 g/dL (14.0-18.0); MEAN CORPUSCULAR HEMOGLOBIN 28 pg (27-31); MEAN CORPUSCULAR HGB CONC 33 % (32-36); MEAN CORPUSCULAR VOLUME 86 fL (79.0-98.0); PLATELET COUNT (AUTO) 335 K/uL (130-430); RED BLOOD CELL COUNT(AUTO) 3.72 MIL/uL (4.2-6.2); RED CELL DISTRIBUTION WIDTH 22.2 % (9.0-15.0); WHITE BLOOD COUNT (AUTO) 7.9 K/uL (4.8-10.8)
[2021-03-21 07:11] LABS: ALANINE AMINOTRANSFERASE 24 U/L (12-78); ALBUMIN 2.3 g/dL (3.4-4.8); ANION GAP 13 (5-15); ASPARTATE AMINOTRANSFERASE 22 U/L (10-37); CHLORIDE 119 mmol/L (98-107); CREATININE 1.76 mg/dL (0.55-1.30); GLUCOSE 195 mg/dL (70-99); POTASSIUM 3.2 mmol/L (3.5-5.1); SODIUM SERUM 157 mmol/L (136-145); TOTAL BILIRUBIN 0.2 mg/dL (0.0-1.0); UREA NITROGEN, BLOOD 75 mg/dL (8-21)
[2021-03-21] MEDS: LevALBUTEROL HCL 1.25 MG/0.5 ML *CONC.* VIAL.NEB (XOPENEX CONC.) INH SCH ×2 (07:18→15:40)
--- NOTE | 2021-03-21 07:30 | NUR ---
OPENING NOTE Patient resting in the bed. No acute distress. HOB elevated. On GT feeding of Glucerna 1.2 at 35ml/hr. Skin warm and dry to touch. PICC line intact to SELENA, no redness,no swelling, no drainage, covered with clean and dry transparent dressing. On D5 W at 125ml/hr, infusing well. Safety measure maintained. Call light within reached. Bed locked in low position, side rails up, bed alarm on. Will continue to monitor.
[2021-03-21 07:55] VITALS: BP_SYST 149
[2021-03-21 09:07] LABS: BAND % (MANUAL) 1 % (0-6); BASOPHILS % (MANUAL) 0 % (0-2); CORRECTED WHITE BLOOD COUNT 6.8 K/uL (4.5-11.0); EOSINOPHILS % (MANUAL) 1 % (0-7); LYMPHOCYTES % (MANUAL) 6 % (20-46); MONOCYTES % (MANUAL) 5 % (0-11)
[2021-03-21] MEDS: TAMSULOSIN HCL 0.4 MG CAP PO SCH ×2 (09:40→20:39)
[2021-03-21] MEDS: ASCORBIC ACID 500 MG TABLET GT SCH (09:40)
[2021-03-21] MEDS: LANSOPRAZOLE 30 MG CAPSULE.DR GT SCH ×2 (09:41→20:39)
[2021-03-21] MEDS: amLODIPine BESYLATE 10 MG TABLET GT SCH (09:41)
[2021-03-21] MEDS: METOPROLOL TARTRATE 50 MG TABLET GT SCH ×2 (09:41→20:40)
[2021-03-21] MEDS: ASPIRIN 81 MG TAB.CHEW PO SCH (09:41)
--- NOTE | 2021-03-21 09:43 | NUR ---
AM SCHEDULE MED GIVEN VIA GT, TOLERATED WELL.
[2021-03-21 12:06] VITALS: BP_SYST 155
[2021-03-21] MEDS: KCL 20 mEq in 100 mL (PREMIX) 100 ML IV SCH ×2 (12:20→14:10)
--- NOTE | 2021-03-21 12:49 | NUR ---
BS 189 Humulin R 2 units given per sliding scale as ordered. Patient resting in the bed. No acute distress. HOB elevated all the time. Continue on GT feeding tolerated well. Safety measure maintained. Call light within reached. Bed locked in low position, side rails up, bed alarm on. Continue to monitor.
--- NOTE | 2021-03-21 14:25 | NUR ---
ROUND Patient resting in the bed. No acute distress. HOB elevated all the time. PICC line intact, IVF infusing well. Safety measure maintained. Call light within reached. Bed locked in low position, padded side rails up, bed alarm on. Continue to monitor.
[2021-03-21 15:42] VITALS: BP_SYST 149
--- NOTE | 2021-03-21 17:48 | NUR ---
BS 143 No insulin coverage needed per sliding scale as ordered. Patient resting in the bed. No acute distress. HOB elevated all the time. Continue on GT feeding tolerated well. Safety measure maintained. Call light within reached. Bed locked in low position, side rails up, bed alarm on. Continue to monitor.
--- NOTE | 2021-03-21 18:52 | NUR ---
CLOSING NOTE Patient resting in the bed. No acute distress. HOB elevated all the time. On GT feeding of Glucerna 1.2 at 35ml/hr. Skin warm and dry to touch. PICC line intact to SELENA, no redness,no swelling, no drainage, covered with clean and dry transparent dressing. On D5 W at 125ml/hr, infusing well. All needs met. Safety measure maintained. Call light within reached. Bed locked in low position, padded side rails up, bed alarm on. Will endorse to night nurse.
--- NOTE | 2021-03-21 19:30 | NUR ---
OPENING NOTE Patient resting in the bed. No acute distress. HOB elevated. On GT feeding of Glucerna 1.2 at 35ml/hr. No residual noted. Skin warm and dry to touch. PICC line intact to SELENA, no redness,no swelling, no drainage, covered with clean and dry transparent dressing. On D5 W at 125ml/hr, infusing well. All needs met. Safety, fall, aspiration precautions in place. Call light within reach. Bed locked in low position, padded side rails up, bed alarm on. Will continue to monitor.
[2021-03-21 20:00] VITALS: BP_SYST 159
[2021-03-21] MEDS: ATORVASTATIN 10 MG TABLET GT SCH (20:40)
[2021-03-21] MEDS: TERAZOSIN HCL 1 MG CAPSULE (HYTRIN) GT SCH (20:40)
[2021-03-21] MEDS: LATANOPROST 2.5 ML DROPS (XALATAN) OP SCH (20:41)
--- NOTE | 2021-03-21 21:20 | NUR ---
RN Rounds pt vital signs stable. pt tolerating GT feeding. pt is a&o x1. Alert, but nononverbal. Eyes opening spontaneously. Tolerating room air.
[2021-03-22] VITALS: BP_SYST 161
--- NOTE | 2021-03-22 | NUR ---
Rn Rounds Pt vital signs stable. no s/s of distress at this time. Will continue to monitor.
[2021-03-22] MEDS: LevALBUTEROL HCL 1.25 MG/0.5 ML *CONC.* VIAL.NEB (XOPENEX CONC.) INH SCH ×4 (03:43→23:58)
[2021-03-22] MEDS: OXYMETAZOLINE HCL 0.05% NASAL SPRAY NS SCH ×6 (05:23→23:43)
[2021-03-22] MEDS: methylPREDNISolone SOD SUCC/PF 62.5 MG/ML VIAL IVP SCH ×3 (05:23→21:02)
[2021-03-22] MEDS: INSULIN REGULAR, HUMAN 100 UNITS/ML, 10 ML VIAL (humuLIN R) SUBCUT PRN ×4 (05:29→23:49)
--- NOTE | 2021-03-22 06:36 | NUR ---
CLOSING NOTE Patient resting in the bed. No acute distress. HOB elevated. On GT feeding of Glucerna 1.2 at 35ml/hr. No residual noted. Skin warm and dry to touch. PICC line intact to SELENA, no redness,no swelling, no drainage, covered with clean and dry transparent dressing. On D5 W at 125ml/hr, infusing well. All needs met. Safety, fall, aspiration precautions in place. Call light within reach. Bed locked in low position, padded side rails up, bed alarm on. Will endorse to dayshift rn.
[2021-03-22 07:20] LABS: ANION GAP 17 (5-15); CALCIUM 8.2 mg/dL (8.4-11.0); CHLORIDE 117 mmol/L (98-107); CREATININE 1.43 mg/dL (0.55-1.30); GLUCOSE 198 mg/dL (70-99); SODIUM SERUM 153 mmol/L (136-145); UREA NITROGEN, BLOOD 77 mg/dL (8-21)
[2021-03-22 07:34] LABS: POTASSIUM 6.2 mmol/L (3.5-5.1)
--- NOTE | 2021-03-22 07:40 | NUR ---
OPENING NOTES: RECEIVED REPORT FROM DEMAND EQUIPMENT REPAIRER NURSE. PATIENT IS AWAKE LAYING DOWN IN BED. TOLERATED OXYGEN ON ROOM AIR WITH NO DISTRESS NOTED. PICC LINE PATENT AND INTACT WITH NO SWELLING OR INFILTRATION NOTED AND COVERED WITH CLEAN AND DRY TRANSPARENT DRESSING. GT TUBE FEEDING PATENT WITH NO RESIDUAL NOTED. SAFETY, FALL, AND ASPIRATION PRECAUTIONS ARE IN PLACE. BED LOCKED IN LOWEST POSITION AND CALL LIGHT IN REACH. WILL CONTINUE TO MONITOR PATIENT FOR ANY CHANGES.
--- NOTE | 2021-03-22 08:20 | NUR ---
CALLED AND SPOKE TO DR. MADRIGAL REGARDING CRITICAL LABS OF POTASSIUM 6.2 WITH ORDER TO GIVE KAYEXALATE 50 GM VIA G TUBE ONCE.
--- NOTE | 2021-03-22 08:22 | NUR ---
Attending Md Dr Zimmerman was paged directly, RE; Critical k level.
[2021-03-22] MEDS ORDERED: SODIUM POLYSTYRENE SULFONATE 15 GM/60 ML UDBTL GT ONE (08:45)
[2021-03-22] MEDS: ASPIRIN 81 MG TAB.CHEW PO SCH (09:27)
[2021-03-22] MEDS: LANSOPRAZOLE 30 MG CAPSULE.DR GT SCH ×2 (09:28→21:02)
[2021-03-22] MEDS: amLODIPine BESYLATE 10 MG TABLET GT SCH (09:28)
[2021-03-22] MEDS: TAMSULOSIN HCL 0.4 MG CAP PO SCH ×2 (09:28→21:03)
[2021-03-22] MEDS: METOPROLOL TARTRATE 50 MG TABLET GT SCH ×2 (09:28→21:03)
[2021-03-22] MEDS: ASCORBIC ACID 500 MG TABLET GT SCH (09:28)
[2021-03-22] MEDS: D5W 1,000 ML IV SCH ×2 (09:36→18:04)
[2021-03-22 10:59] VITALS: BP_SYST 158
[2021-03-22 16:20] VITALS: BP_SYST 160
--- NOTE | 2021-03-22 19:10 | NUR ---
CLOSING NOTES: PATIENT IS AWAKE LAYING DOWN IN BED. TOLERATED OXYGEN ON ROOM AIR WITH NO DISTRESS NOTED. PICC LINE PATENT AND INTACT WITH NO SWELLING OR INFILTRATION NOTED AND COVERED WITH CLEAN AND DRY TRANSPARENT DRESSING. GT TUBE FEEDING PATENT WITH NO RESIDUAL NOTED. SAFETY, FALL, AND ASPIRATION PRECAUTIONS REMAINED IN PLACE. BED LOCKED IN LOWEST POSITION AND CALL LIGHT IN REACH. WILL ENDORSE PATIENT CARE TO ONCOMING RELAY SHOP TESTER NURSE.
--- NOTE | 2021-03-22 19:35 | NUR ---
OPENING NOTE Patient resting in the bed. No acute distress. HOB elevated. On GT feeding of Glucerna 1.2 at 35ml/hr. No residual noted. Skin warm and dry to touch. PICC line intact to SELENA, no redness,no swelling, no drainage, covered with clean and dry transparent dressing. On D5 W at 125ml/hr, infusing well. Safety, fall, aspiration precautions in place. Call light within reach. Bed locked in low position, padded side rails up, bed alarm on. Will continue to monitor.
[2021-03-22 20:00] VITALS: BP_SYST 160
--- NOTE | 2021-03-22 20:20 | NUR ---
RN ROUNDS PT HAD DIAHREA. CLEANSED AND REPOSITIONED, WOUND CARE DONE.
--- NOTE | 2021-03-22 21:00 | NUR ---
RN Rounds pt vital signs stable. pt tolerating GT feeding. pt is a&o x1. Alert, but nononverbal. Eyes opening spontaneously. Tolerating room air.
[2021-03-22] MEDS: LATANOPROST 2.5 ML DROPS (XALATAN) OP SCH (21:02)
[2021-03-22] MEDS: TERAZOSIN HCL 1 MG CAPSULE (HYTRIN) GT SCH (21:02)
[2021-03-22] MEDS: ATORVASTATIN 10 MG TABLET GT SCH (21:03)
[2021-03-22] MEDS: SOD FERRIC GLUC COMPLEX/SUC 125 MG in NS 100 ML IV SCH (23:44)
[2021-03-23 00:41] VITALS: BP_SYST 160
--- NOTE | 2021-03-23 01:03 | NUR ---
Rn Rounds Pt vital signs stable. no s/s of distress at this time. Will continue to monitor.
[2021-03-23] MEDS: D5W 1,000 ML IV SCH ×3 (02:04→20:55)
[2021-03-23] MEDS: OXYMETAZOLINE HCL 0.05% NASAL SPRAY NS SCH ×5 (05:11→20:57)
[2021-03-23] MEDS: methylPREDNISolone SOD SUCC/PF 62.5 MG/ML VIAL IVP SCH ×2 (05:11→14:39)
[2021-03-23] MEDS: INSULIN REGULAR, HUMAN 100 UNITS/ML, 10 ML VIAL (humuLIN R) SUBCUT PRN ×2 (05:16→17:09)
--- NOTE | 2021-03-23 06:13 | NUR ---
CLOSING NOTE Patient resting in the bed. No acute distress. HOB elevated. On GT feeding of Glucerna 1.2 at 35ml/hr. No residual noted. Skin warm and dry to touch. PICC line intact to SELENA, no redness,no swelling, no drainage, covered with clean and dry transparent dressing. On D5 W at 125ml/hr, infusing well. Safety, fall, aspiration, seizure precautions maintained. Call light within reach. Bed locked in low position, padded side rails up, bed alarm on. Will continue to monitor.
[2021-03-23 07:20] LABS: HEMATOCRIT 32.7 % (36-54); HEMOGLOBIN 10.6 g/dL (14.0-18.0); LYMPHOCYTES # (AUTO) 0.8 K/uL (1.0-5.5); LYMPHOCYTES % (AUTO) 7.4 % (20.5-51.5); MEAN CORPUSCULAR HEMOGLOBIN 28 pg (27-31); MEAN CORPUSCULAR HGB CONC 32 % (32-36); MEAN CORPUSCULAR VOLUME 86 fL (79.0-98.0); MONOCYTES # (AUTO) 0.6 K/uL (0.0-1.0); MONOCYTES % (AUTO) 5.5 % (1.7-9.3); NEUTROPHILS # (AUTO) 9.1 K/uL (1.8-7.7); PLATELET COUNT (AUTO) 267 K/uL (130-430); RED CELL DISTRIBUTION WIDTH 22.7 % (9.0-15.0); WHITE BLOOD COUNT (AUTO) 10.5 K/uL (4.8-10.8)
[2021-03-23 07:23] LABS: ANION GAP 12 (5-15); CALCIUM 7.4 mg/dL (8.4-11.0); CHLORIDE 112 mmol/L (98-107); CREATININE 1.48 mg/dL (0.55-1.30); GLUCOSE 180 mg/dL (70-99); POTASSIUM 3.4 mmol/L (3.5-5.1); SODIUM SERUM 147 mmol/L (136-145); UREA NITROGEN, BLOOD 69 mg/dL (8-21)
[2021-03-23] MEDS: LevALBUTEROL HCL 1.25 MG/0.5 ML *CONC.* VIAL.NEB (XOPENEX CONC.) INH SCH ×2 (07:37→15:32)
[2021-03-23 07:44] LABS: NEUTROPHILS % (AUTO) 87.1 % (40.0-70.0)
[2021-03-23 08:00] VITALS: BP_SYST 160
[2021-03-23] MEDS: LANSOPRAZOLE 30 MG CAPSULE.DR GT SCH ×2 (08:50→22:13)
[2021-03-23] MEDS: TAMSULOSIN HCL 0.4 MG CAP PO SCH ×2 (08:50→22:12)
[2021-03-23] MEDS: amLODIPine BESYLATE 10 MG TABLET GT SCH (08:51)
[2021-03-23] MEDS: ASPIRIN 81 MG TAB.CHEW PO SCH (08:51)
[2021-03-23] MEDS: ASCORBIC ACID 500 MG TABLET GT SCH (08:51)
[2021-03-23] MEDS: METOPROLOL TARTRATE 50 MG TABLET GT SCH ×2 (08:52→22:13)
[2021-03-23 12:00] VITALS: BP_SYST 157
[2021-03-23 12:20] VITALS: BP_SYST 160
--- NOTE | 2021-03-23 13:39 | NUR ---
Patient accepted at [facility] [id number] for report [phone]-Ambulance on will call [facility] . Discharge disposition 03.
--- NOTE | 2021-03-23 15:10 | NUR ---
Nutrition F/U Admitting Diagnosis: Hyperkalemia and Severe dehydration Medical History Comment: Pt w/: Acute Exacerbation of COPD, Dehydration, Acute Renal Failure, Severe Malnutrition, Anemia, DM per MD notes. PMH: DM, COPD, HTN, Stroke. PSH: GT placement. SRS-CoV-2 Ag Rapid 03/18 Negative Subjective Information: Pt was receiving BT w/ RT at bedside at time of RD visit. TF was seen infusing as per physician order -- 224 ml infused, providing 269 kcal. RN reported that pt's GT was clogged this morning, but was successfully unclogged by 0900, and TF has been infusing since then -- she stated she has not found any significant GRV. RN denied any pending plans/procedures. Per EMR review, TF Rate: 35 ml 7/2; GRV: 40 ml 7/2; abd is soft and non-distended w/ active bowel sounds; last BM x3 03/22; Michael scale: 15 w/ wound to lateral L foot noted. Pt's Na, K, BUN, and CRE lab values continue abnormal, and current TF prescription does not meet nutritional demands. Pt may benefit from modification of EN to better support pt's nutritional needs. Current Diet Order/Nutrition Support: Glucerna 1.2 at 35 ml/hr, Free Water Flush: 210 ml Q6H via GT x4 days Provides: 1008 kcal/day, 50 gm protein/day, and 1516 ml free water/day Meets: 62% of lower end of estimated caloric needs and 77% of lower end of estimated protein needs Pertinent Medications: lipitor, zinc, VIT C, SSI, dulcolax, reglan Pertinent Labs: Na 147 H, K 3.4 L, BG 180 H, POC BG 150 H, BUN 69 H, CRE 1.48 H Ht: 5'6"/66" Wt: 183#/83 kg. New Wt: 195#/89 kg (03/19); 187#/85 kg (03/23) BMI: 29.53 kg/m2; New BMI: 31.5 kg/m2 (03/19); 30.2 kg (03/23) IBW: 142#/65 kg Adj IBW (obesity): 153#/70 kg Estimated Energy Expenditure (kcals/day) 4564-5464 (25-30 kcal/kg IBW for maintenance) NEW Estimated Protein Required (g/day) 65-81 (1-1.25 gm/kg IBW for Renal Dz predialysis, geriatric, COPD) Estimated Fluid Required (l/day) per MD (Renal failure) Problem/Etiology/Signs/Symptoms (MODIFIED) Altered nutrition related labs r/t endocrine and renal dysfunction AEB elevated BG, BUN, SCre labs. (*ongoing) Inadequate protein-calorie intake r/t current EN infusion rate AEB EN intake meets <80% of estimated needs (*ongoing) Expected Outcomes/Goals Monitor EN tolerance and intake w/ goal of pt meeting more than 80% of estimated nutritional needs, labs trending WNL, normal GI function, skin integrity/wt maintenance.c Dietitian Recommendations * Recommend Nepro at 40 ml/hr (goal rate), Free Water Flush per physician via GT Provides: 1728 kcal/day, 78 gm protein/day, and 698 ml free water/day Meets: 89% of upper end of estimated calorie needs and 96% of upper end of estimated protein needs Follow Up High Risk: F/U in 2-3 days
--- NOTE | 2021-03-23 15:20 | NUR ---
Dietitian Recommendations * Recommend Nepro at 40 ml/hr (goal rate), Free Water Flush per physician via GT Provides: 1728 kcal/day, 78 gm protein/day, and 698 ml free water/day Meets: 89% of upper end of estimated calorie needs and 96% of upper end of estimated protein needs LP, RD Please refer to Nutrition F/U for details.
[2021-03-23 16:05] VITALS: BP_SYST 146
--- NOTE | 2021-03-23 18:00 | NUR ---
Note Dr Zimmerman came to floor and assessed pt at 1610. MD will discharge pt tomorrow back to facility. Pt was checked on q1' and PRN all shift for needs and care. Pt's GT feeding infusing well all shift. SELENA PICC intact and patent infusing IVF's well. Pt has side pads for seizure precautions. Pt was given hygiene care all shift for urine and bowel incontinence all shift. SCD's on bilaterally all shift. Tele unit attached and intact all shift. Call light wihtinr each. Pt next to nurses' station all shift for close observation.
[2021-03-23 20:00] VITALS: BP_SYST 142
[2021-03-23] MEDS: ATORVASTATIN 10 MG TABLET GT SCH (22:12)
[2021-03-23] MEDS: TERAZOSIN HCL 1 MG CAPSULE (HYTRIN) GT SCH (22:13)
[2021-03-23] MEDS: predniSONE 20 MG TABLET GT SCH (22:13)
[2021-03-23] MEDS: LATANOPROST 2.5 ML DROPS (XALATAN) OP SCH (22:14)
[2021-03-24 00:07] VITALS: BP_SYST 143
[2021-03-24] MEDS: LevALBUTEROL HCL 1.25 MG/0.5 ML *CONC.* VIAL.NEB (XOPENEX CONC.) INH SCH ×4 (00:22→23:26)
[2021-03-24] MEDS: D5W 1,000 ML IV SCH ×4 (00:40→20:30)
[2021-03-24] MEDS: OXYMETAZOLINE HCL 0.05% NASAL SPRAY NS SCH ×7 (00:41→23:35)
[2021-03-24] MEDS: INSULIN REGULAR, HUMAN 100 UNITS/ML, 10 ML VIAL (humuLIN R) SUBCUT PRN ×3 (00:46→17:40)
--- NOTE | 2021-03-24 07:05 | NUR ---
CLOSING NOTES: Patient is laying in bed, awake and in stable condition. He is on room air, tolerating well. PICC line on left upper are, infusing well. All needs were met throughout shift. Will endorse to dayshift nurse.
--- NOTE | 2021-03-24 07:21 | NUR ---
EYES OPEN, BUT THEY DO NOT APPEAR TO TRACK. TOLERATED OXYGEN ON ROOM AIR WITH NO DISTRESS NOTED. PICC LINE IS PATENT AND INTACT. COVERED WITH CLEAN AND DRY TEGADERM. GT TUBE FEEDING RUNNING WITH NO RESIDUAL NOTED. SAFETY, FALL, AND ASPIRATION PRECAUTIONS ARE IN PLACE. CALL LIGHT IN PLACE, BED LOCKED AT THE LOWEST POSITION, WILL CONTINUE TO MONITOR.
[2021-03-24] MEDS: ASPIRIN 81 MG TAB.CHEW PO SCH (08:14)
[2021-03-24] MEDS: ASCORBIC ACID 500 MG TABLET GT SCH (08:14)
[2021-03-24] MEDS: predniSONE 20 MG TABLET GT SCH ×2 (08:14→20:23)
[2021-03-24] MEDS: TAMSULOSIN HCL 0.4 MG CAP PO SCH ×2 (08:14→20:22)
[2021-03-24] MEDS: LANSOPRAZOLE 30 MG CAPSULE.DR GT SCH ×2 (08:14→20:22)
[2021-03-24] MEDS: amLODIPine BESYLATE 10 MG TABLET GT SCH (08:16)
[2021-03-24] MEDS: METOPROLOL TARTRATE 50 MG TABLET GT SCH ×2 (08:18→20:22)
[2021-03-24 09:45] LABS: BASOPHILS % (AUTO) 0.1 % (0.0-2.0); HEMATOCRIT 31.8 % (36-54); HEMOGLOBIN 10.4 g/dL (14.0-18.0); LYMPHOCYTES # (AUTO) 1.1 K/uL (1.0-5.5); LYMPHOCYTES % (AUTO) 7.8 % (20.5-51.5); MEAN CORPUSCULAR HEMOGLOBIN 28 pg (27-31); MEAN CORPUSCULAR HGB CONC 33 % (32-36); MEAN CORPUSCULAR VOLUME 85 fL (79.0-98.0); MONOCYTES # (AUTO) 1.3 K/uL (0.0-1.0); MONOCYTES % (AUTO) 9.4 % (1.7-9.3); NEUTROPHILS # (AUTO) 11.1 K/uL (1.8-7.7); NEUTROPHILS % (AUTO) 82.7 % (40.0-70.0); PLATELET COUNT (AUTO) 216 K/uL (130-430); RED BLOOD CELL COUNT(AUTO) 3.74 MIL/uL (4.2-6.2); RED CELL DISTRIBUTION WIDTH 20.6 % (9.0-15.0); WHITE BLOOD COUNT (AUTO) 13.5 K/uL (4.8-10.8)
[2021-03-24 10:27] LABS: ALANINE AMINOTRANSFERASE 38 U/L (12-78); ALBUMIN 2.1 g/dL (3.4-4.8); ANION GAP 12 (5-15); ASPARTATE AMINOTRANSFERASE 32 U/L (10-37); CALCIUM 7.1 mg/dL (8.4-11.0); CHLORIDE 104 mmol/L (98-107); CREATININE 1.42 mg/dL (0.55-1.30); GLUCOSE 172 mg/dL (70-99); SODIUM SERUM 139 mmol/L (136-145); TOTAL BILIRUBIN 0.4 mg/dL (0.0-1.0); UREA NITROGEN, BLOOD 66 mg/dL (8-21)
[2021-03-24 10:45] LABS: POTASSIUM 2.8 mmol/L (3.5-5.1)
[2021-03-24 11:22] VITALS: BP_SYST 169
--- NOTE | 2021-03-24 11:31 | NUR ---
K+ at 2.8. Dr. Tran is called and connected. Order is given.
--- NOTE | 2021-03-24 11:32 | NUR ---
HIGH ALERT NOTE: Called Dr. Tran back at identified within the medical roster to verify physician authenticity. Addendum: 03/25/21 at 1744 by Juancarlos Oden RN PHONE NUMBER [phone]
[2021-03-24] MEDS ORDERED: POTASSIUM CHLORIDE 20 MEQ TAB.PRT.SR PO ONE (11:45)
--- NOTE | 2021-03-24 12:00 | NUR ---
bs 134. No coverage needed.
[2021-03-24 15:23] VITALS: BP_SYST 150
[2021-03-24] MEDS ORDERED: hydrALAZINE HCL 25 MG TABLET PO SCH (15:30)
--- NOTE | 2021-03-24 15:35 | NUR ---
Dr. Apodaca is at bedside assessing patient.
[2021-03-24] MEDS: hydrALAZINE HCL 25 MG TABLET GT SCH ×2 (16:07→23:22)
--- NOTE | 2021-03-24 19:40 | NUR ---
OPENING NOTE RECEIVED REPORT FROM DAY RN. PATIENT LAYING IN BED WITH RESPIRATIONS UNLABORED ON RA. NO SIGNS OF DISTRESS NOTED. PT IS NONVERBAL AND OPENS EYES TO VOICE. NO TRACKING NOTED. PT HAS G-TUB PATENT AND INTACT. NO SIGNS OF LEAKAGE NOTED. GLUCERNA 1.2 RUNNING AT 35ML/HR. ABDOMEN SOFT AND NON DISTENDED. SELENA PICC LINE CLEAN, DRY AND INTACT. FLUSHES WELL. RUNNING IVF. NO SIGNS OF INFILTRATION NOTED. PT TOLERATING WELL. LEFT FOOT WOUND DRESSING IN PLACE. SCARS NOTED ON ABDOMEN AND LEFT LEG, SKIN INTACT. BILATERAL LOWER LEGS SCALY AND DRY. SCDS IN PLACE. PEDAL PULSES PALPABLE BILATERALLY. BED IN LOW AND LOCKED POSITION. SAFETY/FALL/SEIZURE PRECAUTIONS IN PLACE. WILL CONTINUE TO MONITOR.
[2021-03-24 20:00] VITALS: BP_SYST 148
[2021-03-24] MEDS: ATORVASTATIN 10 MG TABLET GT SCH (20:23)
[2021-03-24] MEDS: TERAZOSIN HCL 1 MG CAPSULE (HYTRIN) GT SCH (20:23)
[2021-03-24] MEDS: LATANOPROST 2.5 ML DROPS (XALATAN) OP SCH (20:25)
[2021-03-25 00:06] VITALS: BP_SYST 148
--- NOTE | 2021-03-25 00:15 | NUR ---
G TUBE FEEDING INCREASED TO 40ML/HR. RESIDUAL BEFORE: 5ML. WILL CONTINUE TO MONITOR.
[2021-03-25] MEDS: D5W 1,000 ML IV SCH ×2 (00:17→04:13)
--- NOTE | 2021-03-25 01:20 | NUR ---
G-TUBE RESIDUAL 5ML. PT TOLERATING 40ML/HR WELL. NO SIGNS OF DISTRESS NOTED. G-TUBE CLEAN, DRY, AND INTACT.
[2021-03-25] MEDS: OXYMETAZOLINE HCL 0.05% NASAL SPRAY NS SCH ×5 (04:13→21:01)
[2021-03-25] MEDS: hydrALAZINE HCL 25 MG TABLET GT SCH ×2 (06:33→16:43)
[2021-03-25] MEDS: INSULIN REGULAR, HUMAN 100 UNITS/ML, 10 ML VIAL (humuLIN R) SUBCUT PRN ×2 (06:36→17:06)
--- NOTE | 2021-03-25 06:45 | NUR ---
CLOSING NOTE PT LAYING IN BED WITH RESPIRATIONS EVEN AND UNLABORED ON RA. NO SIGNS OF DISTRESS NOTED. G-TUBE CLEAN, DRY AND INTACT RUNNING TUBE FEEDING AT 40 ML/HR. RESIDUAL <5ML. G-TUBE WATER FLUSHES WELL. PT TOLERATED WELL. SELENA PICC CLEAN DRY AND INTACT RUNNING IVF. NO SIGNS OF INFILTRATION NOTED. DRESSING INTACT. ALL NEEDS MET THROUGHOUT THE NIGHT. BED IN LOW AND LOCKED POSITION. SAFETY/FALL/SEIZURE PRECAUTIONS IN PLACE. WILL ENDORSE TO DAY RN.
[2021-03-25] MEDS: LevALBUTEROL HCL 1.25 MG/0.5 ML *CONC.* VIAL.NEB (XOPENEX CONC.) INH SCH ×2 (07:23→15:34)
[2021-03-25 07:33] LABS: BASOPHILS % (AUTO) 0.3 % (0.0-2.0); HEMATOCRIT 32.7 % (36-54); HEMOGLOBIN 10.7 g/dL (14.0-18.0); LYMPHOCYTES # (AUTO) 1.2 K/uL (1.0-5.5); LYMPHOCYTES % (AUTO) 7.4 % (20.5-51.5); MEAN CORPUSCULAR HEMOGLOBIN 28 pg (27-31); MEAN CORPUSCULAR HGB CONC 33 % (32-36); MEAN CORPUSCULAR VOLUME 85 fL (79.0-98.0); MONOCYTES # (AUTO) 1.2 K/uL (0.0-1.0); MONOCYTES % (AUTO) 7.2 % (1.7-9.3); NEUTROPHILS % (AUTO) 85.1 % (40.0-70.0); PLATELET COUNT (AUTO) 207 K/uL (130-430); RED BLOOD CELL COUNT(AUTO) 3.85 MIL/uL (4.2-6.2); WHITE BLOOD COUNT (AUTO) 16.4 K/uL (4.8-10.8)
[2021-03-25 07:43] LABS: ANION GAP 12 (5-15); CALCIUM 7.2 mg/dL (8.4-11.0); CHLORIDE 101 mmol/L (98-107); CREATININE 1.36 mg/dL (0.55-1.30); GLUCOSE 165 mg/dL (70-99); POTASSIUM 3.3 mmol/L (3.5-5.1); SODIUM SERUM 135 mmol/L (136-145); UREA NITROGEN, BLOOD 66 mg/dL (8-21)
--- NOTE | 2021-03-25 08:00 | NUR ---
OPENING NOTES PATIENT AWAKE BOTH EYES OPEN, NON VERBAL. VERY CONTRACTED RIGHT ARM, LEFT ARM, BOTH LEGS. LUNGS BILATERALLY CLEAR BUT DIMINISHED AT THE BASES. ABDOMEN SOFT AND NON DISTENDED. HAS G TUBE WITH GLUCERNA 1.2 AT 40CC/HR INFUSING ON WELL. HAS SELENA PICC LINE WITH D5W AT 125CC/HR INFUSING ON WELL. BED LOW POSITION, ALARMED AND LOCKED. WILL CONTINUE TO MONITOR PATIENTS STATUS.
[2021-03-25 08:19] VITALS: BP_SYST 156
--- NOTE | 2021-03-25 10:00 | NUR ---
AM BED BATH DONE AND [facility] CARE DONE.
[2021-03-25] MEDS: LANSOPRAZOLE 30 MG CAPSULE.DR GT SCH ×2 (10:03→21:02)
[2021-03-25] MEDS: ASCORBIC ACID 500 MG TABLET GT SCH (10:04)
[2021-03-25] MEDS: ASPIRIN 81 MG TAB.CHEW PO SCH (10:04)
[2021-03-25] MEDS: METOPROLOL TARTRATE 50 MG TABLET GT SCH ×2 (10:04→21:03)
[2021-03-25] MEDS: TAMSULOSIN HCL 0.4 MG CAP PO SCH ×2 (10:04→21:02)
[2021-03-25] MEDS: predniSONE 20 MG TABLET GT SCH (10:04)
[2021-03-25] MEDS: amLODIPine BESYLATE 10 MG TABLET GT SCH (10:04)
[2021-03-25 11:19] VITALS: BP_SYST 150
--- NOTE | 2021-03-25 12:00 | NUR ---
LATEST BS 128 MG/DL. NO COVERAGE GIVEN. NO RESIDUAL NOTED AT THIS TIME. PLEASE FLUSHED THE G TUBE ORDERED.
[2021-03-25] MEDS ORDERED: D5W 1,000 ML IV PRN (12:45)
[2021-03-25] MEDS ORDERED: DEXTROSE 50%-WATER 50 ML DISP.SYRIN IVP PRN (12:45)
[2021-03-25] MEDS ORDERED: GLUCOSE (DEXTROSE) ORAL GEL -Adults PO PRN (12:45)
[2021-03-25] MEDS ORDERED: POTASSIUM CHLORIDE 20 MEQ/PKT PACKET GT ONE (13:45)
[2021-03-25 15:17] VITALS: BP_SYST 147
--- NOTE | 2021-03-25 16:08 | NUR ---
TURN PATIENT TO SIDES. [place] CARE DONE. INCONTINENT OF URINE. VERY STIFF. NON VERBAL. HAS PICC LINE ON LEFT UPPER ARM SALINE LOCK. ORDERED BY DR MADRIGAL NO DISCHARGE YET BECAUSE POTASSIUM LEVEL IS LOW, PERHAPS TOMORROW. PLEASE FOLLOW UP DR MADRIGAL TOMORROW.
--- NOTE | 2021-03-25 19:45 | NUR ---
OPENING NOTE RECEIVED REPORT FROM DAY RN. PATIENT LAYING IN BED WITH RESPIRATIONS UNLABORED ON RA. NO SIGNS OF DISTRESS NOTED. PT IS NONVERBAL AND OPENS EYES TO VOICE. NO TRACKING NOTED. PT HAS G-TUB PATENT AND INTACT. NO SIGNS OF LEAKAGE NOTED. GLUCERNA 1.2 RUNNING AT 40ML/HR. ABDOMEN SOFT AND NON DISTENDED. SELENA PICC LINE CLEAN, DRY AND INTACT. FLUSHES WELL. RUNNING IVF. NO SIGNS OF INFILTRATION NOTED. PT TOLERATING WELL. LEFT FOOT WOUND DRESSING IN PLACE. SCARS NOTED ON ABDOMEN AND LEFT LEG, SKIN INTACT. BILATERAL LOWER LEGS SCALY AND DRY. SCDS IN PLACE. PEDAL PULSES PALPABLE BILATERALLY. BED IN LOW AND LOCKED POSITION. SAFETY/FALL/SEIZURE PRECAUTIONS IN PLACE. WILL CONTINUE TO MONITOR.
[2021-03-25 20:00] VITALS: BP_SYST 148
[2021-03-25] MEDS: LATANOPROST 2.5 ML DROPS (XALATAN) OP SCH (21:01)
[2021-03-25] MEDS: TERAZOSIN HCL 1 MG CAPSULE (HYTRIN) GT SCH (21:02)
[2021-03-25] MEDS: ATORVASTATIN 10 MG TABLET GT SCH (21:02)
[2021-03-26] VITALS: BP_SYST 146
[2021-03-26] MEDS: hydrALAZINE HCL 25 MG TABLET GT SCH ×3 (00:52→15:40)
[2021-03-26] MEDS: OXYMETAZOLINE HCL 0.05% NASAL SPRAY NS SCH ×4 (00:53→15:41)
[2021-03-26] MEDS: LevALBUTEROL HCL 1.25 MG/0.5 ML *CONC.* VIAL.NEB (XOPENEX CONC.) INH SCH ×3 (01:18→15:10)
--- NOTE | 2021-03-26 06:30 | NUR ---
CLOSING NOTE PT LAYING IN BED WITH RESPIRATIONS EVEN AND UNLABORED ON RA. NO SIGNS OF DISTRESS NOTED. G-TUBE CLEAN, DRY AND INTACT RUNNING TUBE FEEDING AT 40 ML/HR. RESIDUAL <5ML. G-TUBE WATER FLUSHES WELL. PT TOLERATED WELL. SELENA PICC CLEAN DRY AND INTACT SALINE LOCKED. NO SIGNS OF INFILTRATION NOTED. FLUSHES WELL. ALL NEEDS MET THROUGHOUT THE NIGHT. BED IN LOW AND LOCKED POSITION. SAFETY/FALL/SEIZURE PRECAUTIONS IN PLACE. WILL ENDORSE TO DAY RN.
[2021-03-26 06:55] LABS: BASOPHILS % (AUTO) 0.2 % (0.0-2.0); EOSINOPHILS # (AUTO) 0.1 K/uL (0.0-0.4); EOSINOPHILS % (AUTO) 0.4 % (0.0-4.0); HEMATOCRIT 35.8 % (36-54); HEMOGLOBIN 11.6 g/dL (14.0-18.0); LYMPHOCYTES # (AUTO) 1.8 K/uL (1.0-5.5); LYMPHOCYTES % (AUTO) 9.7 % (20.5-51.5); MEAN CORPUSCULAR HEMOGLOBIN 28 pg (27-31); MEAN CORPUSCULAR HGB CONC 33 % (32-36); MEAN CORPUSCULAR VOLUME 86 fL (79.0-98.0); MONOCYTES # (AUTO) 1.7 K/uL (0.0-1.0); MONOCYTES % (AUTO) 9.4 % (1.7-9.3); NEUTROPHILS # (AUTO) 14.9 K/uL (1.8-7.7); NEUTROPHILS % (AUTO) 80.3 % (40.0-70.0); PLATELET COUNT (AUTO) 166 K/uL (130-430); RED BLOOD CELL COUNT(AUTO) 4.16 MIL/uL (4.2-6.2); RED CELL DISTRIBUTION WIDTH 22.3 % (9.0-15.0); WHITE BLOOD COUNT (AUTO) 18.5 K/uL (4.8-10.8)
[2021-03-26 07:39] LABS: ANION GAP 12 (5-15); CALCIUM 7.5 mg/dL (8.4-11.0); CHLORIDE 105 mmol/L (98-107); CREATININE 1.32 mg/dL (0.55-1.30); GLUCOSE 116 mg/dL (70-99); POTASSIUM 3.9 mmol/L (3.5-5.1); SODIUM SERUM 140 mmol/L (136-145); UREA NITROGEN, BLOOD 65 mg/dL (8-21)
--- NOTE | 2021-03-26 07:45 | NUR ---
Opening Note Seen patient lying down in bed, non verbal, eyes are open, respirations even unlabored, vitals stable, g-tube patent flushed well no residual noted, g tube continued as ordered, pt tolerating feeding, HOB elevated PICC line with two lumen patent on left upper arm patent, flushed well, with good blood return. Edema noted on left upper arm, elevated on pillow, will notify Dr. Zimmerman. Bed in lowest position, bed alarm on, safety, fall/seizure precautions in place and side rails padded. No acute distress noted, will continue to monitor.
[2021-03-26 08:00] VITALS: BP_SYST 152
[2021-03-26 09:00] VITALS: BP_SYST 152
[2021-03-26] MEDS ORDERED: predniSONE 20 MG TABLET GT SCH (09:00)
[2021-03-26] MEDS: LANSOPRAZOLE 30 MG CAPSULE.DR GT SCH (10:19)
[2021-03-26] MEDS: TAMSULOSIN HCL 0.4 MG CAP PO SCH (10:20)
[2021-03-26] MEDS: ASCORBIC ACID 500 MG TABLET GT SCH (10:20)
[2021-03-26] MEDS: ASPIRIN 81 MG TAB.CHEW PO SCH (10:20)
[2021-03-26] MEDS: METOPROLOL TARTRATE 50 MG TABLET GT SCH (10:21)
[2021-03-26] MEDS: amLODIPine BESYLATE 10 MG TABLET GT SCH (10:25)
[2021-03-26 11:26] VITALS: BP_SYST 151
--- NOTE | 2021-03-26 13:00 | NUR ---
Rounding Note Dr Zimmerman seen patient, notified of left arm edema, MD gramajo, new orders recieved for discharge back to SNF and to D/C PICC line. Pt stable, not in acute distress, needs attended to
--- NOTE | 2021-03-26 13:31 | NUR ---
Nutrition F/U Admitting Diagnosis: Hyperkalemia and Severe dehydration Medical History Comment: Pt w/: Acute Exacerbation of COPD, Dehydration, Acute Renal Failure, Severe Malnutrition, Anemia, DM per MD notes. PMH: DM, COPD, HTN, Stroke. PSH: GT placement. SRS-CoV-2 Ag Rapid 03/18 Negative Subjective Information: Pt was sleeping at time of visit. TF was seen infusing as per physician order -- Nepro at 40ml/hr. abd is soft and non-distended w/ active bowel sounds; last BM x2 7/5; Michael scale: 11 w/ wound to lateral L foot noted. Pt's BUN, and CRE lab values continue abnormal. Current Diet Order/Nutrition Support:Nepro at 40 ml/hr (goal rate), Free Water Flush per physician via GT Provides: 1728 kcal/day, 78 gm protein/day, and 698 ml free water/day Meets: 89% of upper end of estimated calorie needs and 96% of upper end of estimated protein needs Pertinent Medications: lipitor, zinc, VIT C, SSI, dulcolax, reglan Pertinent Labs: BG 116 H, POC BG 120 H, BUN 65 H, CRE 1.32 H Ht: 5'6"/66" Wt: 183#/83 kg. New Wt: 195#/89 kg (03/19); 187#/85 kg (03/23) 196#/88.9 kg (03/26) --9# weight gain, possibly d/t fluctuations in fluid. BMI: 29.53 kg/m2; New BMI: 31.5 kg/m2 (03/19); 30.2 kg (03/23) 31.6 kg/m2 (03/26) IBW: 142#/65 kg Adj IBW (obesity): 153#/70 kg Estimated Energy Expenditure (kcals/day) 8867-6777 (25-30 kcal/kg IBW for maintenance) Estimated Protein Required (g/day) 65-81 (1-1.25 gm/kg IBW for Renal Dz predialysis, geriatric, COPD) Estimated Fluid Required (l/day) per MD (Renal failure) Problem/Etiology/Signs/Symptoms (MODIFIED) Altered nutrition related labs r/t endocrine and renal dysfunction AEB elevated BG, BUN, SCre labs. (*ongoing) Expected Outcomes/Goals Monitor EN tolerance and intake w/ goal of pt meeting more than 80% of estimated nutritional needs, labs trending WNL, normal GI function, skin integrity/wt maintenance.c Dietitian Recommendations * Recommend: continue Nepro at 40 ml/hr (goal rate), Free Water Flush per physician via GT Provides: 1728 kcal/day, 78 gm protein/day, and 698 ml free water/day Meets: 89% of upper end of estimated calorie needs and 96% of upper end of estimated protein needs Follow Up High Risk: F/U in 2-3 days
--- NOTE | 2021-03-26 13:55 | NUR ---
Dietitian Recommendations * Recommend: continue Nepro at 40 ml/hr (goal rate), Free Water Flush per physician via GT Provides: 1728 kcal/day, 78 gm protein/day, and 698 ml free water/day Meets: 89% of upper end of estimated calorie needs and 96% of upper end of estimated protein needs Please see Nutrition F/U note for details. [facility]SING [facility], RD
[2021-03-26 15:39] VITALS: BP_SYST 148
[2021-03-26 15:54] VITALS: BP_SYST 153
--- NOTE | 2021-03-26 16:10 | NUR ---
PICC LINE REMOVED PICC LINE REMOVED WITHOUT ANY RESISTANCE. PER MD ORDER. CATHETER LENGTH 39 CM.TIP INTACT. CLEAN DRESSING APPLIED .NO ACUTE BLEEDING NOTED. .PT TOLERATED WELL.
--- NOTE | 2021-03-26 16:30 | NUR ---
D/C Patient Patient given medication reconciliation form and D/C instructions. Exit Care provided. MD discussed with patient the results and treatment provided. Report given to Uzma Whitfield RN Patient in stable condition, ID band removed. Picc lined removed clean dressing applied, no bleeding noted, report given to medic 1 EMT. Pt left in stable with medic 1 ambulance.
== END 2021-03-26 16:30 | DRG 190 ==
LOC: SED 16:34 → STU 19:46
PROVIDERS: ADMIT Family Medicine; ATTEND Family Medicine
PROC: 30233N1 Transfusion of Nonautologous Red Blood Cells into Peripheral Vein, Percutaneous Approach (ICD-10-PCS; principal; 2021-03-15)
PROC: 02HV33Z Insertion of Infusion Device into Superior Vena Cava, Percutaneous Approach (ICD-10-PCS; 2021-03-15)
DX: J44.1 Chronic obstructive pulmonary disease with (acute) exacerbation (principal); E43 Unspecified severe protein-calorie malnutrition; N17.0 Acute kidney failure with tubular necrosis; E87.1 Hypo-osmolality and hyponatremia; E86.0 Dehydration; E11.9 Type 2 diabetes mellitus without complications; E87.5 Hyperkalemia; D50.9 Iron deficiency anemia, unspecified; I10 Essential (primary) hypertension; Z20.822 Contact with and (suspected) exposure to COVID-19; Z86.73 Personal history of transient ischemic attack (TIA), and cerebral infarction without residual deficits; Z79.82 Long term (current) use of aspirin; Z79.899 Other long term (current) drug therapy; Z68.31 Body mass index [BMI] 31.0-31.9, adult; Z87.891 Personal history of nicotine dependence; Z93.1 Gastrostomy status
CPT/HCPCS: 36415; 71045; 76770; 80048; 80053; 81003; 82607; 82728; 82746; 82962; 83540; 83550; 83605; 83735; 83880; 84132; 84484; 85007; 85025; 85027; 85610-TC; 85730-TC; 86886; 86900; 86901; 86920; 87040-TC; 87081; 87086; 93005; 94640; 94760; 96374; 96375; 99291; G0378; J1815; J2916; J2930; J2997; J3480; J7512; J7612; P9021